=== PATIENT | female | born 1970 | race Caucasian/White ===

== ENCOUNTER 2017-12-19 18:20 | Emergency (ER) | payer MEDICAID, SELFPAY ==
[2017-12-19 18:25] VITALS: BP 120/84; PULSE 83; RESP 12; TEMP 37; O2SAT 98
--- NOTE | 2017-12-19 19:48 | DI.RAD_ITS ---
SYMPTOMS/DIAGNOSIS: FOOT PAIN RIGHT FOOT: Three views. Comparison is 12/05/16. No acute fracture or dislocation is identified. There is again seen a tiny well-corticated osseous density adjacent to the navicular. It is unchanged compared to the prior examination. The soft tissues are unremarkable. IMPRESSION: No acute fracture or dislocation.
--- NOTE | 2017-12-19 20:09 | W.ED.GENAD ---
Discharge Plan Disposition Patient Disposition: HOME Condition: Stable Discharge Details Chief Complaint: Orthopedic Clinical Impression: Acute pain of right foot Primary Care Provider: Aydin Hughes ED Provider: Josemanuel Peña Home Meds and New Rx's Prescriptions: No Action yiwjhaldfe-gotcpjdzvnhcs-anju 50-325-40 mg tablet 1 tab PO Q6H PRN (Reason: pain) Qty: 30 RF: 1 ipratropium-albuterol 3 ML solution for nebulization 3 ml UPD Q6H Qty: 30 RF: 0 divalproex 250 MG tablet,delayed release (DR/EC) 250 mg PO DAILY Qty: 90 RF: 3 omeprazole 40 MG capsule,delayed release(DR/EC) 40 mg PO DAILY Qty: 90 RF: 3 spironolactone 25 MG tablet 0.5 tab PO DAILY Qty: 45 RF: 4 carvedilol [Coreg] 3.125 MG tablet 1 tab PO BID Qty: 180 RF: 4 lisinopril 5 MG tablet 5 mg PO DAILY Qty: 90 RF: 4 norethindrone acetate 5 MG tablet 5 mg PO DAILY Qty: 90 RF: 4 albuterol sulfate [ProAir HFA] 8.5 GM HFA aerosol inhaler 2 puff Inhalation Q6H PRN Qty: 1 RF: 4 topiramate [Topamax] 100 MG tablet 1 tab PO BID Qty: 180 RF: 4 fluticasone [Flovent HFA] 120 PUFF HFA aerosol inhaler 2 puff Inhalation BID Qty: 1 RF: 11 duloxetine 30 MG capsule,delayed release(DR/EC) 30 mg PO DAILY Qty: 90 RF: 4 Discharge Instructions Instructions: Plantar Fasciitis (ED), Leg Pain (ED) Additional Instructions: Feel free to return to the emergency department for any new or worsening symptom otherwise use ituw-dho-mkxbcea pain medication as you normally would for any discomfort. You may also try lidocaine cream just look for 4% lidocaine as the active ingredient for keye-bxw-gahmotx pain cream. If not improving over the next couple weeks please follow-up with your primary care provider for reassessment. Referrals: Aydin Hughes MD [Primary Care Provider] - 2 weeks (If not improving over the next couple weeks please follow-up with your primary care provider for reassessment) Medical Decision Making Patient presenting to the emergency department for right foot pain for the past couple days. Patient states that she has been moving but denies any injury or trauma but has been on her feet more. Physical exam shows diffuse right foot pain without focal tenderness. Given severe discomfort with any palpation of the foot I do plan on performing radiological imaging to rule out acute fracture but suspicious of possible plantar fasciitis is patient is wearing house slippers and states that she has old shoes that she typically wears. Plan to give acetaminophen for pain control pending results After review of radiological imaging that shows no acute findings I feel the patient is able to be safely discharged to follow-up with her primary care provider if not improving over the next couple weeks. Patient was encouraged to continue to use acetaminophen for discomfort and to use atag-wrw-ndgohfv lidocaine cream given NSAID allergies. Again highly suspicious of possible plantar fasciitis or soft tissue pain but difficult to fully assess given diffuse nature of discomfort and with any manipulation of the foot patient states severe pain. Patient encouraged to return for new or worsening symptoms otherwise to follow-up with PCP in 2 weeks as needed. After discussion of diagnosis and plan of care patient is no further needs, questions, or concerns and states clear understanding to return to the emergency department for any worsening symptoms. HPI General Mode of arrival: wheelchair. Date/Time Provider Initiated Documentation: 12/19/17 19:33. Limitations to Documentation: no limitations. Information obtained by: patient and RN notes reviewed. History of Present Illness 47 year old F presents to the emergency department with the chief complaint of Right foot pain, described as severe, with intensity rated at 8. Quality is described as aching and sharp, and is localized to the right and lower extremity. Patient reports no radiation. Patient started experiencing this day(s) (2) and it has been constant. No relieving factors improve symptom(s), Movement worsens symptoms . Patient notes no other symptoms.. Patient did receive the following treatments prior to arrival, none Related Data Home Medications Medication Instructions Recorded Confirmed albuterol sulfate [Proair Hfa] 2 puff INHALATION Q6H PRN #1 11/08/17 12/19/17 inhaler carvedilol [Coreg] 1 tab PO BID #180 tab-cap 11/08/17 12/19/17 divalproex 250 mg PO DAILY #90 tab-cap 11/08/17 12/19/17 duloxetine 30 mg PO DAILY #90 cap 11/08/17 12/19/17 fluticasone [Flovent 110mcg] 2 puff INHALATION BID #1 inh 11/08/17 12/19/17 ipratropium-albuterol 3 ml UPD Q6H #30 vial 11/08/17 12/19/17 lisinopril 5 mg PO DAILY #90 tab-cap 11/08/17 12/19/17 norethindrone acetate 5 mg PO DAILY #90 tab 11/08/17 12/19/17 omeprazole 40 mg PO DAILY #90 tab-cap 11/08/17 12/19/17 spironolactone 0.5 tab PO DAILY #45 tab-cap 11/08/17 12/19/17 topiramate [Topamax] 1 tab PO BID #180 tab 11/08/17 12/19/17 hdqysnyiem-tlzbvkzzkunbz-ouwptwmq 1 tab PO Q6H PRN #30 tab 12/17/17 12/19/17 50 mg-325 mg-40 mg tablet Previous Rx's Medication Instructions Recorded albuterol sulfate [Proair Hfa] 2 puff INHALATION Q6H PRN #1 11/08/17 inhaler carvedilol [Coreg] 1 tab PO BID #180 tab-cap 11/08/17 divalproex 250 mg PO DAILY #90 tab-cap 11/08/17 duloxetine 30 mg PO DAILY #90 cap 11/08/17 fluticasone [Flovent 110mcg] 2 puff INHALATION BID #1 inh 11/08/17 ipratropium-albuterol 3 ml UPD Q6H #30 vial 11/08/17 lisinopril 5 mg PO DAILY #90 tab-cap 11/08/17 norethindrone acetate 5 mg PO DAILY #90 tab 11/08/17 omeprazole 40 mg PO DAILY #90 tab-cap 11/08/17 spironolactone 0.5 tab PO DAILY #45 tab-cap 11/08/17 topiramate [Topamax] 1 tab PO BID #180 tab 11/08/17 hobullgjai-fkktoqusepgeg-sttmlqee 1 tab PO Q6H PRN #30 tab 12/17/17 50 mg-325 mg-40 mg tablet Allergies Allergy/AdvReac Type Severity Reaction Status Date / Time cyclobenzaprine HCl Allergy Intermediate Skin Rash Unverified 12/17/17 15:36 [From Flexeril] ibuprofen Allergy Intermediate PT REPORTS Unverified 12/17/17 15:36 THAT IBUPROFEN GIVES HER A RASH. latex Allergy Intermediate Skin Rash Unverified 12/17/17 15:36 codeine AdvReac Intermediate Nausea Unverified 12/17/17 15:36 gabapentin AdvReac Intermediate Nausea Unverified 12/17/17 15:36 naproxen AdvReac Intermediate Rash, Unverified 12/17/17 15:36 nausea & vomiting tramadol AdvReac Intermediate Psychosis, Unverified 12/17/17 15:36 pt stated I flip out varenicline tartrate AdvReac Intermediate HALLUCINATI Unverified 12/17/17 15:36 [From Chantix] ONS pregabalin [From Lyrica] AdvReac Dizziness/Lightheaded, Unverified 12/17/17 15:36 weakness, lethargy General Stated Complaint: Orthopedic JUAN MIGUEL: 4 Review of Systems Constitutional Denies body ache(s) and Denies fever(s) Cardiovascular Denies chest pain and Denies dyspnea Respiratory Denies dyspnea Musculoskeletal Reports as per HPI, Denies deformity, Reports arthralgias, Denies numbness, Denies stiffness and Denies tingling Integumentary/Breasts Denies rash Neurologic Denies numbness and Denies tingling PFSH Family History Mother Diabetes Essential hypertension Heart disease Myocardial infarction Father No problems noted. Brother Essential hypertension Myocardial infarction Sister No problems noted. Grandmother Essential hypertension Medical History Chronic abdominal pain Chronic interstitial cystitis GERD (gastroesophageal reflux disease) PTSD Shoulder pain Vitamin B12 deficiency Social History household members: other details: 2 current occupational status: disabled Smoking/Tobacco Use Status: Current every day tobacco type: cigarettes alcohol intake: never substance use type: does not use Surgical History Cholecystectomy (04/06/16) Cystoscopy Vaginal hysterectomy (~2005) Exam Const General: cooperative and no acute distress Orientation: alert, awake and oriented x3 Resp Effort & Inspection: normal respiratory effort, able to speak in complete sentences and normal respiratory pattern Cardio Rate: regular rate Rhythm: regular rhythm Extrem Right lower extremity: full ROM, normal capillary refill, lower leg Details: normal to inspection, ankle Details: normal to inspection and foot Details: tenderness (Diffuse with difficult to local), toes with normal ROM, vascular exam Details: dorsalis pedis pulse present, posterior tibial pulse present and normal capillary refill, tendon exam Details: active flexion normal and active extension normal and motor-sensory exam Details: two point discrimination normal and light-touch normal; no unusual warmth, edema noted, no abrasion, no laceration and no ecchymosis; no cyanosis, no edema and joint enlargement noted Course Vital Signs Temperature 37 C 12/19/17 18:25 Pulse 83 12/19/17 18:25 Respiratory Rate 12 12/19/17 18:25 Blood Pressure 120/84 12/19/17 18:25 Pulse Oximetry 98 12/19/17 18:25 Temperature 37 C 12/19/17 18:25 Temperature Source Temporal Artery Scan 12/19/17 18:25 Pulse 83 12/19/17 18:25 Respiratory Rate 12 12/19/17 18:25 Respiratory Effort 12/19/17 20:03 Blood Pressure 120/84 12/19/17 18:25 Pulse Oximetry 98 12/19/17 18:25 Oxygen Delivery Method Room Air 12/19/17 18:25 Oxygen Flow Rate 0 12/19/17 18:25 Pain Level 8 12/19/17 18:25
--- NOTE | 2017-12-19 20:12 | DI.VRAD_ITS ---
EXAM: XR Right Foot Complete, 3 or More Views CLINICAL HISTORY: 47 years old, female; Pain; Foot; Right; Patient HX: Right foot pain, no known injury. Patient states she previously broke the right foot 3 years ago. TECHNIQUE: Frontal, lateral and oblique views of the right foot. COMPARISON: CR RIGHT FOOT COMPLETE 12/05/2016 11:23 AM FINDINGS: Bones/joints: Small well-corticated osseous fragment adjacent to the navicular bone, likely chronic. No acute fracture. No dislocation. Soft tissues: Unremarkable. No radiopaque foreign body. IMPRESSION: No acute fractures or dislocations. Dictated and Authenticated by: Angel Knight MD. Ordering:JENI DUPONT MD
[2017-12-19] MEDS: Acetaminophen 500 MG TAB 1000 MG PO (20:17)
--- NOTE | 2017-12-19 20:19 | ED.GENADUL_ITS ---
Discharge Plan Disposition Patient Disposition: HOME Condition: Stable Discharge Details Chief Complaint: Orthopedic Clinical Impression: Acute pain of right foot Primary Care Provider: Aydin Hughes ED Provider: Josemanuel Peña Home Meds and New Rx's Prescriptions: No Action whcvnnpkwd-zflmxtbjssxvb-kzia 50-325-40 mg tablet 1 tab PO Q6H PRN (Reason: pain) Qty: 30 RF: 1 ipratropium-albuterol 3 ML solution for nebulization 3 ml UPD Q6H Qty: 30 RF: 0 divalproex 250 MG tablet,delayed release (DR/EC) 250 mg PO DAILY Qty: 90 RF: 3 omeprazole 40 MG capsule,delayed release(DR/EC) 40 mg PO DAILY Qty: 90 RF: 3 spironolactone 25 MG tablet 0.5 tab PO DAILY Qty: 45 RF: 4 carvedilol [Coreg] 3.125 MG tablet 1 tab PO BID Qty: 180 RF: 4 lisinopril 5 MG tablet 5 mg PO DAILY Qty: 90 RF: 4 norethindrone acetate 5 MG tablet 5 mg PO DAILY Qty: 90 RF: 4 albuterol sulfate [ProAir HFA] 8.5 GM HFA aerosol inhaler 2 puff Inhalation Q6H PRN Qty: 1 RF: 4 topiramate [Topamax] 100 MG tablet 1 tab PO BID Qty: 180 RF: 4 fluticasone [Flovent HFA] 120 PUFF HFA aerosol inhaler 2 puff Inhalation BID Qty: 1 RF: 11 duloxetine 30 MG capsule,delayed release(DR/EC) 30 mg PO DAILY Qty: 90 RF: 4 Discharge Instructions Instructions: Plantar Fasciitis (ED), Leg Pain (ED) Additional Instructions: Feel free to return to the emergency department for any new or worsening symptom otherwise use cmbn-sxu-bqjybqg pain medication as you normally would for any discomfort. You may also try lidocaine cream just look for 4% lidocaine as the active ingredient for ouhj-gvg-zrgytun pain cream. If not improving over the next couple weeks please follow-up with your primary care provider for reassessment. Referrals: Aydin Hughes MD [Primary Care Provider] - 2 weeks (If not improving over the next couple weeks please follow-up with your primary care provider for reassessment) Medical Decision Making Patient presenting to the emergency department for right foot pain for the past couple days. Patient states that she has been moving but denies any injury or trauma but has been on her feet more. Physical exam shows diffuse right foot pain without focal tenderness. Given severe discomfort with any palpation of the foot I do plan on performing radiological imaging to rule out acute fracture but suspicious of possible plantar fasciitis is patient is wearing house slippers and states that she has old shoes that she typically wears. Plan to give acetaminophen for pain control pending results After review of radiological imaging that shows no acute findings I feel the patient is able to be safely discharged to follow-up with her primary care provider if not improving over the next couple weeks. Patient was encouraged to continue to use acetaminophen for discomfort and to use jucc-xka-gnjzfjk lidocaine cream given NSAID allergies. Again highly suspicious of possible plantar fasciitis or soft tissue pain but difficult to fully assess given diffuse nature of discomfort and with any manipulation of the foot patient states severe pain. Patient encouraged to return for new or worsening symptoms otherwise to follow-up with PCP in 2 weeks as needed. After discussion of diagnosis and plan of care patient is no further needs, questions, or concerns and states clear understanding to return to the emergency department for any worsening symptoms. HPI General Mode of arrival: wheelchair . Date/Time Provider Initiated Documentation: 12/19/17 19:33 . Limitations to Documentation: no limitations . Information obtained by: patient and RN notes reviewed . History of Present Illness 47 year old F presents to the emergency department with the chief complaint of Right foot pain, described as severe, with intensity rated at 8. Quality is described as aching and sharp, and is localized to the right and lower extremity. Patient reports no radiation. Patient started experiencing this day(s) (2) and it has been constant. No relieving factors improve symptom(s) , Movement worsens symptoms . Patient notes no other symptoms.. Patient did receive the following treatments prior to arrival, none Related Data Home Medications Medication Instructions Recorded Confirmed albuterol sulfate [Proair Hfa] 2 puff INHALATION Q6H PRN #1 11/08/17 12/19/17 inhaler carvedilol [Coreg] 1 tab PO BID #180 tab-cap 11/08/17 12/19/17 divalproex 250 mg PO DAILY #90 tab-cap 11/08/17 12/19/17 duloxetine 30 mg PO DAILY #90 cap 11/08/17 12/19/17 fluticasone [Flovent 110mcg] 2 puff INHALATION BID #1 inh 11/08/17 12/19/17 ipratropium-albuterol 3 ml UPD Q6H #30 vial 11/08/17 12/19/17 lisinopril 5 mg PO DAILY #90 tab-cap 11/08/17 12/19/17 norethindrone acetate 5 mg PO DAILY #90 tab 11/08/17 12/19/17 omeprazole 40 mg PO DAILY #90 tab-cap 11/08/17 12/19/17 spironolactone 0.5 tab PO DAILY #45 tab-cap 11/08/17 12/19/17 topiramate [Topamax] 1 tab PO BID #180 tab 11/08/17 12/19/17 jwujiavgcp-komyjsfojqgaw-cwtmnhko 1 tab PO Q6H PRN #30 tab 12/17/17 12/19/17 50 mg-325 mg-40 mg tablet Previous Rx's Medication Instructions Recorded albuterol sulfate [Proair Hfa] 2 puff INHALATION Q6H PRN #1 11/08/17 inhaler carvedilol [Coreg] 1 tab PO BID #180 tab-cap 11/08/17 divalproex 250 mg PO DAILY #90 tab-cap 11/08/17 duloxetine 30 mg PO DAILY #90 cap 11/08/17 fluticasone [Flovent 110mcg] 2 puff INHALATION BID #1 inh 11/08/17 ipratropium-albuterol 3 ml UPD Q6H #30 vial 11/08/17 lisinopril 5 mg PO DAILY #90 tab-cap 11/08/17 norethindrone acetate 5 mg PO DAILY #90 tab 11/08/17 omeprazole 40 mg PO DAILY #90 tab-cap 11/08/17 spironolactone 0.5 tab PO DAILY #45 tab-cap 11/08/17 topiramate [Topamax] 1 tab PO BID #180 tab 11/08/17 btaywqnnww-lltiecpcvzjrr-qchigakm 1 tab PO Q6H PRN #30 tab 12/17/17 50 mg-325 mg-40 mg tablet Allergies Allergy/AdvReac Type Severity Reaction Status Date / Time cyclobenzaprine HCl Allergy Intermediate Skin Rash Unverified 12/17/17 15:36 [From Flexeril] ibuprofen Allergy Intermediate PT REPORTS Unverified 12/17/17 15:36 THAT IBUPROFEN GIVES HER A RASH. latex Allergy Intermediate Skin Rash Unverified 12/17/17 15:36 codeine AdvReac Intermediate Nausea Unverified 12/17/17 15:36 gabapentin AdvReac Intermediate Nausea Unverified 12/17/17 15:36 naproxen AdvReac Intermediate Rash, Unverified 12/17/17 15:36 nausea & vomiting tramadol AdvReac Intermediate Psychosis, Unverified 12/17/17 15:36 pt stated I flip out varenicline tartrate AdvReac Intermediate HALLUCINATI Unverified 12/17/17 15:36 [From Chantix] ONS pregabalin [From Lyrica] AdvReac Dizziness/Lightheaded, Unverified 12/17/17 15: 36 weakness, lethargy General Stated Complaint: Orthopedic JUAN MIGUEL: 4 Review of Systems Constitutional Denies body ache(s) and Denies fever(s) Cardiovascular Denies chest pain and Denies dyspnea Respiratory Denies dyspnea Musculoskeletal Reports as per HPI, Denies deformity, Reports arthralgias, Denies numbness, Denies stiffness and Denies tingling Integumentary/Breasts Denies rash Neurologic Denies numbness and Denies tingling PFSH Family History Mother Diabetes Essential hypertension Heart disease Myocardial infarction Father No problems noted. Brother Essential hypertension Myocardial infarction Sister No problems noted. Grandmother Essential hypertension Medical History Chronic abdominal pain Chronic interstitial cystitis GERD (gastroesophageal reflux disease) PTSD Shoulder pain Vitamin B12 deficiency Social History household members: other details: 2 current occupational status: disabled Smoking/Tobacco Use Status: Current every day tobacco type: cigarettes alcohol intake: never substance use type: does not use Surgical History Cholecystectomy (04/06/16) Cystoscopy Vaginal hysterectomy (~2005) Exam Const General: cooperative and no acute distress Orientation: alert, awake and oriented x3 Resp Effort & Inspection: normal respiratory effort, able to speak in complete sentences and normal respiratory pattern Cardio Rate: regular rate Rhythm: regular rhythm Extrem Right lower extremity: full ROM, normal capillary refill, lower leg Details: normal to inspection, ankle Details: normal to inspection and foot Details: tenderness (Diffuse with difficult to local), toes with normal ROM, vascular exam Details: dorsalis pedis pulse present, posterior tibial pulse present and normal capillary refill, tendon exam Details: active flexion normal and active extension normal and motor-sensory exam Details: two point discrimination normal and light-touch normal; no unusual warmth, edema noted, no abrasion, no laceration and no ecchymosis; no cyanosis, no edema and joint enlargement noted Course Vital Signs Temperature 37 C 12/19/17 18:25 Pulse 83 12/19/17 18:25 Respiratory Rate 12 12/19/17 18:25 Blood Pressure 120/84 12/19/17 18:25 Pulse Oximetry 98 12/19/17 18:25 Temperature 37 C 12/19/17 18:25 Temperature Source Temporal Artery Scan 12/19/17 18:25 Pulse 83 12/19/17 18:25 Respiratory Rate 12 12/19/17 18:25 Respiratory Effort 12/19/17 20:03 Blood Pressure 120/84 12/19/17 18:25 Pulse Oximetry 98 12/19/17 18:25 Oxygen Delivery Method Room Air 12/19/17 18:25 Oxygen Flow Rate 0 12/19/17 18:25 Pain Level 8 12/19/17 18:25
[2017-12-19 20:34] VITALS: BP 120/84; PULSE 83; RESP 12; TEMP 37; O2SAT 98
== END 2017-12-19 20:58 | disposition home or self-care (01) ==
PROVIDERS: Emergency Provider Nurse Practitioner Family; PCP Family Medicine
DX: M79.671 Pain in right foot (principal)
CPT/HCPCS: 99283; 73630; 99282

== ENCOUNTER 2018-01-17 16:52 | Outpatient (CLI) | payer MEDICAID, SELFPAY ==
--- NOTE | 2018-01-17 15:18 | DI.RAD_ITS ---
SYMPTOMS/DIAGNOSIS: WORSENING LT HIP PAIN, DECREASED RANGE OF MOTION LEFT HIP AND PELVIS: Two views. The left hip is well maintained. The bones are normally mineralized and intact. The sacroiliac joints and symphysis pubis are intact. The soft tissues are unremarkable. IMPRESSION: Negative left hip.
== END 2018-01-17 17:12 ==
PROVIDERS: PCP Family Medicine; Visit Provider Family Medicine
DX: M25.552 Pain in left hip (principal); M25.852 Other specified joint disorders, left hip
CPT/HCPCS: 73502

== ENCOUNTER 2018-03-25 13:03 | Emergency (ER) | payer MEDICAID, SELFPAY ==
[2018-03-25 13:18] VITALS: BP 120/90; PULSE 72; RESP 18; TEMP 36.8; O2SAT 98
--- NOTE | 2018-03-25 16:17 | DI.RAD_ITS ---
SYMPTOMS/DIAGNOSIS: S/P FALL, ? ACUTE FRACTURE LEFT HIP AND PELVIS: No acute fracture or dislocation is seen. IMPRESSION: No acute abnormality.
--- NOTE | 2018-03-25 16:23 | W.ED.GENAD ---
Discharge Plan Disposition Patient Disposition: HOME Condition: Stable Discharge Details Chief Complaint: Orthopedic Clinical Impression: Chronic left hip pain Reason For Visit: BAD HIP PAIN Primary Care Provider: Aydin Hughes ED Provider: Yamilet Lucas Home Meds and New Rx's Prescriptions: Continued nicotine 21 mg/24 hr patch 24 hour 1 patch TD DAILY Qty: 28 RF: 2 melatonin 5 mg tablet 5 mg PO HS PRN (Reason: sleep) Qty: 30 RF: 3 rdqoddniel-bncckgrhptbqm-bvzy 50-325-40 mg tablet 1 tab PO Q6H PRN (Reason: pain) Qty: 30 RF: 1 triamcinolone acetonide 0.1 % cream 1 applic TP BID Qty: 30 RF: 1 ipratropium-albuterol 3 ML solution for nebulization 3 ml UPD Q6H Qty: 30 RF: 0 divalproex 250 MG tablet,delayed release (DR/EC) 250 mg PO DAILY Qty: 90 RF: 3 omeprazole 40 MG capsule,delayed release(DR/EC) 40 mg PO DAILY Qty: 90 RF: 3 spironolactone 25 MG tablet 0.5 tab PO DAILY Qty: 45 RF: 4 carvedilol [Coreg] 3.125 MG tablet 1 tab PO BID Qty: 180 RF: 4 lisinopril 5 MG tablet 5 mg PO DAILY Qty: 90 RF: 4 ProAir HFA 8.5 GM HFA aerosol inhaler 2 puff Inhalation Q6H PRN Qty: 1 RF: 4 Flovent HFA 120 PUFF HFA aerosol inhaler 2 puff Inhalation BID Qty: 1 RF: 11 duloxetine 30 MG capsule,delayed release(DR/EC) 30 mg PO DAILY Qty: 90 RF: 4 topiramate [Topamax] 100 mg tablet 100 mg PO BID Qty: 180 RF: 4 No Action norethindrone acetate 5 mg tablet 5 mg PO DAILY Qty: 90 RF: 4 Discharge Instructions Instructions: Chronic Pain (ED) Additional Instructions: Alternate ice and heat to the affected area several times daily. Take Tylenol as needed and directed for pain. Take Robaxin as needed and directed for pain not relieved with Tylenol. Follow-up with your scheduled appointment with orthopedics next month. Return to the emergency department any worsening or new concerning symptoms. Discharge Data Discharge Date/Time-TO BE ENTERED AT DEPARTURE: 03/25/18 18:23 Discharge Physician: Yamilet Lucas Medical Decision Making 48-year-old female with a history of chronic left hip pain for the past ~ 9 months, with persistent worsening s/p L iliotibial band tenotomy for trochanteric bursitis with Dr. Navarrete in June 2017 and 1 month s/p steroid injection to L hip per pcp who presents with worsening left hip pain since fall yesterday. Saw her pcp Dr. Hughes 4 days ago for her chronic hip pain and prescribed salon pas patch. Dr. Hughes notes stated opiates not appropriate per his evaluation. No cauda equina symptoms. Has been able to ambulate but with difficulty due to pain. Left lateral hip tender to palpation and pain with range of motion. No deformity. Neurovascular intact. No focal deficits. Care management initially spoke with patient regarding her chronic left hip pain and recommendations for follow-up with orthopedics. Will place a Lidoderm patch and send for left hip x-ray. It was discussed with patient that if x-ray negative, we do not treat chronic pain in the emergency department, and that she is recommended to follow-up with her scheduled appointment with orthopedics this month. [id number] --x-ray negative. Patient is requesting to go home. She is allergic to flexeril. Will send home with 2 tabs of Robaxin. Patient is instructed to alternate ice and heat and follow-up with her scheduled appointment with orthopedics this month. Patient instructed to return here with concerns. Medical Records Medical records reviewed: Yes I reviewed the patient's medical records. Imaging Data Radiologic Study: Radiologist's impression: XR Left Hip with Pelvis when Performed, 2 or 3 Views EXAM DATE/TIME: 03/25/2018 4:58 PM CLINICAL HISTORY: 48 years old, female; Signs and symptoms; Other: S/P fall , R/O acute fracture; Prior surgery; Surgery date: 6+ months TECHNIQUE: XR Left hip with pelvis when performed, 2 or 3 views COMPARISON: CR XR hip LT complete AP pelvis 01/17/2018 3:09 PM FINDINGS: The sacroiliac joints, pubic symphysis and hip joints are intact. Bone density is normal. No fracture or avascular necrosis is identified. IMPRESSION: No fracture. HPI General Mode of arrival: wheelchair. Date/Time Provider Initiated Documentation: 01/08/19 13:39. Limitations to Documentation: no limitations. Information obtained by: patient. HPI Narrative: Patient is a 48-year-old female with a history of obesity, PTSD, GERD, alcohol use, bipolar disorder and hypertension who presents with chronic left hip pain for the past 8 months. Patient states her pain is in her left hip and extends down her left leg. She denies any leg weakness or numbness, urinary or fecal incontinence, saddle anesthesia, or abdominal pain. Patient states she has had a history of left hip surgery with Dr. Navarrete and states she has had worsening pain since then. Patient also admits to a new injury a few days ago in which she slipped and fell onto her left hip. Patient has been able to ambulate but with pain. Patient saw her PCP recently in the last week for this hip pain and was given a salon pas topical patches which she states is not helping. She states she is allergic to ibuprofen. Related Data Home Medications Medication Instructions Recorded Confirmed Flovent HFA 2 puff INHALATION BID #1 inh 11/08/17 03/20/18 ProAir HFA 2 puff INHALATION Q6H PRN #1 11/08/17 03/20/18 inhaler carvedilol [Coreg] 1 tab PO BID #180 tab-cap 11/08/17 03/20/18 divalproex 250 mg PO DAILY #90 tab-cap 11/08/17 03/20/18 duloxetine 30 mg PO DAILY #90 cap 11/08/17 03/20/18 ipratropium-albuterol 3 ml UPD Q6H #30 vial 11/08/17 03/20/18 lisinopril 5 mg PO DAILY #90 tab-cap 11/08/17 03/20/18 omeprazole 40 mg PO DAILY #90 tab-cap 11/08/17 03/20/18 spironolactone 0.5 tab PO DAILY #45 tab-cap 11/08/17 03/20/18 csnhrzbpmu-cdwldeaaxjivy-napdnrfw 1 tab PO Q6H PRN #30 tab 12/17/17 03/20/18 50 mg-325 mg-40 mg tablet triamcinolone acetonide 0.1 % 1 applic TP BID #30 gm 01/17/18 03/20/18 topical cream topiramate 100 mg tablet 100 mg PO BID #180 tab 02/18/18 03/20/18 melatonin 5 mg tablet 5 mg PO HS PRN #30 tab 03/20/18 03/20/18 nicotine 21 mg/24 hr daily 1 patch TD DAILY #28 each 03/20/18 03/20/18 transdermal patch norethindrone acetate 5 mg tablet 5 mg PO DAILY #90 tab 03/27/18 Previous Rx's Medication Instructions Recorded Flovent HFA 2 puff INHALATION BID #1 inh 11/08/17 ProAir HFA 2 puff INHALATION Q6H PRN #1 11/08/17 inhaler carvedilol [Coreg] 1 tab PO BID #180 tab-cap 11/08/17 divalproex 250 mg PO DAILY #90 tab-cap 11/08/17 duloxetine 30 mg PO DAILY #90 cap 11/08/17 ipratropium-albuterol 3 ml UPD Q6H #30 vial 11/08/17 lisinopril 5 mg PO DAILY #90 tab-cap 11/08/17 omeprazole 40 mg PO DAILY #90 tab-cap 11/08/17 spironolactone 0.5 tab PO DAILY #45 tab-cap 11/08/17 hkwpybdwla-kapipicpobxfw-rwgwgmiq 1 tab PO Q6H PRN #30 tab 12/17/17 50 mg-325 mg-40 mg tablet triamcinolone acetonide 0.1 % 1 applic TP BID #30 gm 01/17/18 topical cream topiramate 100 mg tablet 100 mg PO BID #180 tab 02/18/18 melatonin 5 mg tablet 5 mg PO HS PRN #30 tab 03/20/18 nicotine 21 mg/24 hr daily 1 patch TD DAILY #28 each 03/20/18 transdermal patch norethindrone acetate 5 mg tablet 5 mg PO DAILY #90 tab 03/27/18 Allergies Allergy/AdvReac Type Severity Reaction Status Date / Time cyclobenzaprine HCl Allergy Intermediate Skin Rash Unverified 03/20/18 14:55 [From Flexeril] ibuprofen Allergy Intermediate PT REPORTS Unverified 03/20/18 14:55 THAT IBUPROFEN GIVES HER A RASH. latex Allergy Intermediate Skin Rash Unverified 03/20/18 14:55 codeine AdvReac Intermediate Nausea Unverified 03/20/18 14:55 gabapentin AdvReac Intermediate Nausea Unverified 03/20/18 14:55 naproxen AdvReac Intermediate Rash, Unverified 03/20/18 14:55 nausea & vomiting tramadol AdvReac Intermediate Psychosis, Unverified 03/20/18 14:55 pt stated I flip out varenicline tartrate AdvReac Intermediate HALLUCINATI Unverified 03/20/18 14:55 [From Chantix] ONS pregabalin [From Lyrica] AdvReac Dizziness/Lightheaded, Unverified 03/20/18 14:55 weakness, lethargy General Stated Complaint: Orthopedic JUAN MIGUEL: 4 Review of Systems Review of Systems All systems reviewed & are unremarkable except as noted in HPI and below Constitutional Reports as per HPI, Denies chills and Denies fever(s) Eyes Denies blurry vision ENT Denies dizziness, Denies sore throat and Denies throat swelling Cardiovascular Denies chest pain and Denies dyspnea Respiratory Denies dyspnea Gastrointestinal Denies abdominal pain, Denies diarrhea and Denies vomiting Genitourinary Denies hematuria and Denies dysuria Musculoskeletal Denies back pain and Denies numbness Integumentary/Breasts Denies lesions and Denies rash Neurologic Denies dizziness and Denies numbness Allergic/Immunologic Denies throat swelling [facility] Medical History Alcohol abuse (Chronic) Anxiety (Chronic) Bipolar disorder (Chronic) Depression (Chronic) HTN (hypertension) (Chronic) Chronic abdominal pain Chronic interstitial cystitis GERD (gastroesophageal reflux disease) PTSD Shoulder pain Vitamin B12 deficiency Surgical History H/O shoulder surgery (Chronic) Cholecystectomy (04/06/16) Cystoscopy Vaginal hysterectomy (~2005) Family History Mother Diabetes Essential hypertension Heart disease Myocardial infarction Father No problems noted. Brother Essential hypertension Myocardial infarction Sister No problems noted. Grandmother Essential hypertension Social History household members: other details: 2 current occupational status: disabled Smoking/Tobacco Use Status: Current every day tobacco type: cigarettes alcohol intake: never substance use type: does not use Exam Const General: cooperative, healthy appearing and no acute distress HENMT Head: normal to inspection Mouth: oral mucosae normal Eyes General: appearance normal, both eyes and all related structures Neck Neck: normal visual inspection Resp Effort & Inspection: normal respiratory effort and able to speak in complete sentences Cardio Rate: regular rate GI Palpation: soft and nontender Back/Spine/Pelvis Thoracic/Lumbar Spine: thoracic and lumbar spine normal to inspection, No thoraco-lumbar spasm, No thoracic spinal tenderness and No lumbar spinal tenderness Skin General skin exam: no rashes or lesions noted Neuro General: alert, awake, oriented x3 and moves all extremities Motor: muscle tone normal throughout and strength 5/5 throughout Sensory Exam: no sensory deficits noted Plantar Reflexes: Equivocal: bilateral Extrem Left lower extremity: hip/thigh (Well-healed vertical incision scar left lateral hip w/o acute infection) Details: tenderness Location: of the proximal upper leg Location: laterally; no swelling, no abrasions, no lacerations, no ecchymosis, no crepitus, no deformity and no unusual warmth, knee Details: normal to inspection and normal ROM; no tenderness, ankle Details: normal to inspection; no tenderness and foot Details: vascular exam Details: dorsalis pedis pulse present and posterior tibial pulse present Psych Appearance: grossly normal Affect: normal affect Course Vital Signs Temperature 98.2 F 03/25/18 13:18 Pulse 72 03/25/18 13:18 Respiratory Rate 18 03/25/18 13:18 Blood Pressure 120/90 03/25/18 13:18 Pulse Oximetry 98 03/25/18 13:18 Temperature 98.2 F 03/25/18 13:18 Temperature Source Skin 03/25/18 13:18 Pulse 72 03/25/18 13:18 Respiratory Rate 18 03/25/18 13:18 Respiratory Effort 03/25/18 13:21 Blood Pressure 120/90 03/25/18 13:18 Blood Pressure Position Sitting 03/25/18 13:18 Pulse Oximetry 98 03/25/18 13:18 Oxygen Delivery Method Room Air 03/25/18 13:18 Oxygen Flow Rate 0 03/25/18 13:18 Pain Level 8 03/25/18 13:18
--- NOTE | 2018-03-25 17:10 | DI.VRAD_ITS ---
EXAM: XR Left Hip with Pelvis when Performed, 2 or 3 Views EXAM DATE/TIME: 03/25/2018 4:58 PM CLINICAL HISTORY: 48 years old, female; Signs and symptoms; Other: S/P fall , R/O acute fracture; Prior surgery; Surgery date: 6+ months TECHNIQUE: XR Left hip with pelvis when performed, 2 or 3 views COMPARISON: CR XR hip LT complete AP pelvis 01/17/2018 3:09 PM FINDINGS: The sacroiliac joints, pubic symphysis and hip joints are intact. Bone density is normal. No fracture or avascular necrosis is identified. IMPRESSION: No fracture. Dictated and Authenticated by: Tom Mcgrath MD. Ordering:TOMAS Woodard MD
[2018-03-25] MEDS: Lidocaine 5% Patch 1 PATCH TP (18:24)
[2018-03-25] MEDS: Methocarbamol 500 MG TAB PO (18:24)
== END 2018-03-25 18:23 | disposition home or self-care (01) ==
PROVIDERS: Emergency Provider Physician Assistant; PCP Family Medicine
DX: M25.552 Pain in left hip (principal); I10 Essential (primary) hypertension
CPT/HCPCS: 99283; 73502

== ENCOUNTER 2018-06-04 15:52 | Emergency (ER) | payer MEDICAID, SELFPAY ==
[2018-06-04] VITALS (9 sets, daily range): BP systolic 122–127; BP diastolic 70–79; PULSE 62–74; RESP 16–20; TEMP 36.6–37.1; O2SAT 94–98
[2018-06-04] MEDS: Normal Saline Flush 10 ML SYR IVP (16:25)
[2018-06-04] MEDS: Lactated Ringers 1,000 ML 1000 ML IV (16:33)
[2018-06-04] MEDS: HYDROmorphone 2 MG/ML VIAL 1 MG IVP (16:35)
[2018-06-04] MEDS: Metoclopramide 10 MG/2 ML VIAL IVP (16:38)
--- NOTE | 2018-06-04 17:19 | ED.GENADUL_ITS ---
Discharge Plan Disposition Patient Disposition: HOME Condition: Improving Discharge Details Chief Complaint: Abd Prob Clinical Impression: Abdominal pain Primary Care Provider: Aydin Hughes ED Provider: Juan Miguel Coelho Home Meds and New Rx's Prescriptions: No Action nicotine 21 mg/24 hr patch 24 hour 1 patch TD DAILY Qty: 28 RF: 2 melatonin 5 mg tablet 5 mg PO HS PRN (Reason: sleep) Qty: 30 RF: 3 prednisone 5 mg tablet 5 mg PO DAILY RF: 0 prednisolone 5 mg tablet 5 mg PO DAILY RF: 0 bcimyulcdo-wqhomrfhxfpyh-ceik 50-325-40 mg tablet 1 tab PO Q6H PRN (Reason: pain) Qty: 30 RF: 1 ipratropium-albuterol 3 ML solution for nebulization 3 ml UPD Q6H Qty: 30 RF: 0 divalproex 250 MG tablet,delayed release (DR/EC) 250 mg PO DAILY Qty: 90 RF: 3 spironolactone 25 MG tablet 0.5 tab PO DAILY Qty: 45 RF: 4 carvedilol [Coreg] 3.125 MG tablet 1 tab PO BID Qty: 180 RF: 4 lisinopril 5 MG tablet 5 mg PO DAILY Qty: 90 RF: 4 albuterol sulfate [ProAir HFA] 8.5 GM HFA aerosol inhaler 2 puff Inhalation Q6H PRN Qty: 1 RF: 4 Flovent HFA 120 PUFF HFA aerosol inhaler 2 puff Inhalation BID Qty: 1 RF: 11 duloxetine 30 MG capsule,delayed release(DR/EC) 30 mg PO DAILY Qty: 90 RF: 4 topiramate [Topamax] 100 mg tablet 100 mg PO BID Qty: 180 RF: 4 norethindrone acetate 5 mg tablet 5 mg PO DAILY Qty: 90 RF: 4 Discharge Instructions Instructions: Abdominal Pain (ED) Additional Instructions: 1. Drink plenty of fluids. Add solids as tolerated 2. Continue all medications as prescribed. Except, increase the dosing of your antacid to 40 mg twice a day 3. Acetaminophen 1000mg every 4 hours (up to 5 time a day) every 6 hours as needed for fever or pain. Return to the Emergency Department (ED) if your condition worsens, does not improve as expected, or for ANY other concerns. Specifically, return if you have new or uncontrolled pain, worsening fever, difficulty breathing, vomiting, or are unable to drink fluids. Discharge Data Discharge Date/Time-TO BE ENTERED AT DEPARTURE: 06/04/18 18:14 Medical Decision Making 48-year-old woman with a history of recurrent abdominal pain and previous history of cholecystectomy and hysterectomy presents with new onset right-sided abdominal pain. Endorses that pain she feels subjectively similar to previous gallbladder disease. She is also on chronic antacids for gastritis/duodenitis. Uncomfortable on arrival with exam significant for right upper quadrant and right flank tenderness. Limited bedside ultrasound negative for evidence of obstructive nephrolithiasis. Labs and UA negative. Clinically improved after receiving IV crystalloid, IV analgesia. Discussed normal diagnostic studies and low clinical likelihood of clinically significant intra-abdominal disease. Discharged home with a plan for her usual medications and also to double her oral antacid. Pt evaluated immediately prior to discharge with improved symptoms, normal vital signs, and tolerating PO. The patient feels appropriate for discharge home. Discussed clinical/diagnostic findings. Discharged with a clear plan for outpatient follow up. Given usual and customary return instructions prior to discharge. Medical Records Medical records reviewed: Yes I reviewed the patient's medical records. Imaging Data Radiologic Study: Imaging: Ultrasound (Limited bedside renal ultrasound) My impression: Limited renal bedside Ultrasound. Findings include no hydronephrosis, perinephric stranding, or UVJ stones appreciated.. Images obtained, reviewed, and interpreted independently by myself. Images saved on ultrasound system for review. Lab Data Lab results reviewed: Yes I reviewed the patient's lab results. Lab results narrative: Laboratory Tests Range/Units 06/04/18 06/04/18 06/04/18 16:25 16:25 17:45 WBC (4.4-10.8) k/cumm 9.61 RBC (4.00-5.20) m/cumm 5.06 Hgb (12.0-15.5) g/dL 15.8 H Hct (36.0-46.0) % 47.0 H MCV (80-95) fL 92.9 MCH (27.0-33.0) pg 31.2 MCHC (32.0-36.0) g/dL 33.6 RDW (11.7-14.6) % 14.8 H Plt Count (130-400) x1000/uL 235 MPV (8.0-11.0) fL 11.0 Immature Gran % 1.0 Neutrophils % 65.4 Lymphocytes % 23.3 Monocytes % 5.9 Eosinophils % 4.1 Basophils % 0.3 Absolute Neutrophils (1.2-6.7) k/cumm 6.28 Absolute Lymphocytes (1.2-3.4) k/cumm 2.24 Absolute Monocytes (0.11-0.7) k/cumm 0.57 Absolute Eosinophils (0.0-0.7) k/cumm 0.39 Absolute Basophils (0.0-0.2) k/cumm 0.03 Sodium (136-145) mmol/L 139 Potassium (3.5-5.1) mmol/L 3.4 L Chloride (98-107) mmol/L 107 Carbon Dioxide (21.0-32.0) mmol/L 20.2 L Anion Gap (3-11) mmol/L 11.8 H BUN (7-18) mg/dL 7 Creatinine (0.55-1.02) mg/dL 0.83 Estimated GFR/1.73 m2 (mL/min/1.73m2) >= 60.00 Glucose (70-100) mg/dL 96 Calcium (8.5-10.1) mg/dL 8.1 L Total Bilirubin (0.2-1.0) mg/dL 0.3 Conjugated Bilirubin (0.00-0.20) mg/dL 0.08 AST (15-37) U/L 14 L ALT (12-78) U/L 22 Alkaline Phosphatase (46-116) U/L 65 Total Protein (6.4-8.2) g/dL 7.1 Albumin (3.4-5.0) g/dL 3.3 L Urine Color (Yellow) Yellow Urine Clarity Clear Urine pH (5-8) 7.0 Ur Specific Marquez (1.005-1.025) 1.015 Urine Protein (Negative) mg/dL Negative Urine Ketones (Negative) mg/dL Negative Urine Blood (Negative) Trace-intact H Urine Nitrite (Negative) Negative Urine Bilirubin (Negative) Negative Urine Urobilinogen (Up TO 0.2) EU/dL 0.2 Ur Leukocyte Esterase (Negative) Negative Urine RBC (0-2) 0-2 Urine WBC (0-5) HPF Negative Ur Epithelial Cells (Negative) HPF Few Urine Crystals (Negative) HPF Negative Urine Bacteria (Negative) HPF Negative Urine Casts (Negative) LPF Negative Urine Mucus (Negative) Negative Urine Other (Negative) Negative Ur Culture Indicated? No Urine Glucose (Negative) mg/dL Negative HPI 48-year-old with history of anxiety/depression, bipolar disorder, hypertension, alcohol abuse, chronic abdominal pain, GERD and also has a history of a cholecystectomy and vaginal hysterectomy. Presents with 1 day of persistent abdominal pain localized to right abdomen. Onset was gradual last night and her pain is been persistent/worsening since. She localizes pain to the right upper quadrant and right flank. Pain subjectively similar to previous cholecystectomy. Denies fever/chills. Has been nauseated with no emesis. Denies significant change in bowel habits, melena, hematochezia. She has had no urinary symptoms. General Date/Time Provider Initiated Documentation: 06/04/18 16:12 . Related Data Home Medications Medication Instructions Recorded Confirmed Flovent HFA 2 puff INHALATION BID #1 inh 11/08/17 05/28/18 albuterol sulfate [ProAir HFA] 2 puff INHALATION Q6H PRN #1 11/08/17 05/28/18 inhaler carvedilol [Coreg] 1 tab PO BID #180 tab-cap 11/08/17 05/28/18 divalproex 250 mg PO DAILY #90 tab-cap 11/08/17 05/28/18 duloxetine 30 mg PO DAILY #90 cap 11/08/17 05/28/18 ipratropium-albuterol 3 ml UPD Q6H #30 vial 11/08/17 05/28/18 lisinopril 5 mg PO DAILY #90 tab-cap 11/08/17 05/28/18 spironolactone 0.5 tab PO DAILY #45 tab-cap 11/08/17 05/28/18 qotckvamgn-kebbwrpnronfk-thujwovm 1 tab PO Q6H PRN #30 tab 12/17/17 05/28/18 50 mg-325 mg-40 mg tablet topiramate 100 mg tablet 100 mg PO BID #180 tab 02/18/18 05/28/18 melatonin 5 mg tablet 5 mg PO HS PRN #30 tab 03/20/18 05/28/18 nicotine 21 mg/24 hr daily 1 patch TD DAILY #28 each 03/20/18 05/28/18 transdermal patch norethindrone acetate 5 mg tablet 5 mg PO DAILY #90 tab 03/27/18 05/28/18 prednisone 5 mg tablet 5 mg PO DAILY 04/03/18 05/28/18 prednisolone 5 mg tablet 5 mg PO DAILY 05/28/18 05/28/18 Previous Rx's Medication Instructions Recorded Flovent HFA 2 puff INHALATION BID #1 inh 11/08/17 albuterol sulfate [ProAir HFA] 2 puff INHALATION Q6H PRN #1 11/08/17 inhaler carvedilol [Coreg] 1 tab PO BID #180 tab-cap 11/08/17 divalproex 250 mg PO DAILY #90 tab-cap 11/08/17 duloxetine 30 mg PO DAILY #90 cap 11/08/17 ipratropium-albuterol 3 ml UPD Q6H #30 vial 11/08/17 lisinopril 5 mg PO DAILY #90 tab-cap 11/08/17 spironolactone 0.5 tab PO DAILY #45 tab-cap 11/08/17 ziyfswyecu-zyprkzarhalou-zolhwgqn 1 tab PO Q6H PRN #30 tab 12/17/17 50 mg-325 mg-40 mg tablet topiramate 100 mg tablet 100 mg PO BID #180 tab 02/18/18 melatonin 5 mg tablet 5 mg PO HS PRN #30 tab 03/20/18 nicotine 21 mg/24 hr daily 1 patch TD DAILY #28 each 03/20/18 transdermal patch norethindrone acetate 5 mg tablet 5 mg PO DAILY #90 tab 03/27/18 Allergies Allergy/AdvReac Type Severity Reaction Status Date / Time cyclobenzaprine HCl Allergy Intermediate Skin Rash Unverified 05/28/18 09:40 [From Flexeril] ibuprofen Allergy Intermediate PT REPORTS Unverified 05/28/18 09:40 THAT IBUPROFEN GIVES HER A RASH. latex Allergy Intermediate Skin Rash Unverified 05/28/18 09:40 codeine AdvReac Intermediate Nausea Unverified 05/28/18 09:40 gabapentin AdvReac Intermediate Nausea Unverified 05/28/18 09:40 naproxen AdvReac Intermediate Rash, Unverified 05/28/18 09:40 nausea & vomiting tramadol AdvReac Intermediate Psychosis, Unverified 05/28/18 09:40 pt stated I flip out varenicline tartrate AdvReac Intermediate HALLUCINATI Unverified 05/28/18 09:40 [From Chantix] ONS pregabalin [From Lyrica] AdvReac Dizziness/Lightheaded, Unverified 05/28/18 09:40 weakness, lethargy General Stated Complaint: Abd Prob JUAN MIGUEL: 3 Review of Systems Review of Systems All systems are reviewed and are unremarkable except as noted in HPI and below: CONSTITUTIONAL: no fevers/chills, no weakness or change in appetite EYES: no change in vision HEENT: no throat pain or difficulty swallowing; no neck pain CARDIOVASCULAR: no chest pain, palpitations, leg swelling, or diaphoresis RESPIRATORY: no cough, dyspnea, wheezing GASTROINTESTINAL: Right upper quadrant/right flank abdominal pain, nausea with no emesis. No melena/hematochezia GENITOURINARY: no dysuria, flank pain, MUSCULOSKELETAL: no pack pain, myalgias, arthralgias INTEGUMENTARY: no rash, no wounds NEUROLOGIC: no headache, focal weakness, difficulty with speech, numbness PSYCHIATRIC: no confusion, no anxiety HEME: no easy bruising or bleeding ALLERGIC: no urticaria PFSH Social History Smoking/Tobacco Use Status: Current every day Tobacco Type: cigarettes Alcohol Intake: former Drug use: Occasionally Substance use type: former substance user Household members: other Details: 2 What type of physical activity do you participate in: none Do you feel safe at home: Yes Do you feel safe in your relationship?: Yes Exam Narrative Exam Narrative: Nursing note and vital signs have been reviewed and noted. GENERAL: alert, active, no acute distress, well -hydrated, well-nourished HEENT: atraumatic/normocephalic, PERRLA, EOMI, conjunctiva clear, external ears/canals normal, nasal mucosa normal NECK: supple, full range of motion, no mass, normal lymphadenopathy, no thyromegaly CARDIOVASCULAR: RRR, no murmurs, nl pulses, no edema PULMONARY: nl effort, no audible wheezing or stridor, nl breath sounds with no focal deficit. no chest wall tenderness ABDOMEN: soft, moderate right upper quadrant tenderness with mild right flank tenderness, non-distended, no mass, no organomegaly EXTREMITY: normal muscle tone, all joints with FROM, no deformity or tenderness SKIN: no exanthem appreciated NEURO: gross motor exam normal, normal stance and gait PSYCH: alert and oriented, Course Vital Signs Temperature 98.8 F 06/04/18 15:56 Pulse 74 06/04/18 15:56 Respiratory Rate 20 06/04/18 15:56 Blood Pressure 127/70 06/04/18 15:56 Pulse Oximetry 98 06/04/18 15:56 Temperature 98.8 F 06/04/18 15:56 Temperature Source Skin 06/04/18 15:56 Pulse 71 06/04/18 16:32 Respiratory Rate 18 06/04/18 16:32 Respiratory Effort 06/04/18 16:04 Blood Pressure 125/74 06/04/18 16:32 Blood Pressure Mean 88 06/04/18 16:31 Pulse Oximetry 96 06/04/18 16:50 Oxygen Delivery Method Room Air 06/04/18 16:32 Oxygen Flow Rate 0 06/04/18 16:32 Pain Level 5 06/04/18 17:01
[2018-06-04 17:22] LABS: Absolute Basophil Count 0.03 k/cumm (0.0-0.2); Absolute Eosinophil Count 0.39 k/cumm (0.0-0.7); Absolute Lymphocyte Count 2.24 k/cumm (1.2-3.4); Absolute Monocyte Count 0.57 k/cumm (0.11-0.7); Absolute Neutrophil Count 6.28 k/cumm (1.2-6.7); Basophils % 0.3; Eosinophils % 4.1; HGB 15.8 g/dL (12.0-15.5); Lymphocytes % 23.3; Mean Corp. HGB Concentration 33.6 g/dL (32.0-36.0); Mean Corpuscular Hemoglobin 31.2 pg (27.0-33.0); Mean Corpuscular Volume 92.9 fL (80-95); Monocytes % 5.9; Neutrophils % 65.4; Platelet Count 235 x1000/uL (130-400); RBC 5.06 m/cumm (4.00-5.20); RBC Distribution Width 14.8 % (11.7-14.6); White Blood Cell Count 9.61 k/cumm (4.4-10.8)
[2018-06-04 17:34] LABS: ALT 22 U/L (12-78); AST 14 U/L (15-37); Albumin 3.3 g/dL (3.4-5.0); Alkaline Phosphatase 65 U/L (46-116); Anion Gap 11.8 mmol/L (3-11); BUN 7 mg/dL (7-18); Bilirubin, Direct 0.08 mg/dL (0.00-0.20); Bilirubin, Total 0.3 mg/dL (0.2-1.0); CO2 20.2 mmol/L (21.0-32.0); CREATININE 0.83 mg/dL (0.55-1.02); Calcium 8.1 mg/dL (8.5-10.1); Chloride 107 mmol/L (98-107); Glucose 96 mg/dL (70-100); Potassium 3.4 mmol/L (3.5-5.1); Sodium 139 mmol/L (136-145); Total Protein 7.1 g/dL (6.4-8.2)
[2018-06-04 17:56] LABS: Bilirubin Negative (Negative); Blood Trace-intact (Negative); Clarity Clear; Glucose Negative (Negative); Ketones Negative (Negative); Leukocyte Esterase Negative (Negative); Nitrite Negative (Negative); Specific Gravity 1.015 (1.005-1.025); Urobilinogen 0.2 EU/dL (Up TO 0.2)
[2018-06-04 18:26] LABS: Bacteria Negative HPF (Negative); C & S Indicated? No; Casts Negative LPF (Negative); Crystals Negative HPF (Negative); Epithelial Cells Few HPF (Negative); Mucus Negative (Negative); Other Cells Negative (Negative); RBC 0-2 (0-2); WBC Negative HPF (0-5)
== END 2018-06-04 18:14 | disposition home or self-care (01) ==
PROVIDERS: Emergency Provider Emergency Medicine; PCP Family Medicine
DX: R10.11 Right upper quadrant pain (principal); R10.31 Right lower quadrant pain; Z90.49 Acquired absence of other specified parts of digestive tract; I10 Essential (primary) hypertension; Z90.710 Acquired absence of both cervix and uterus
CPT/HCPCS: 36415; 80048; 80076; 96361; 96374; 96375; 99284; 81003; 81015; 85025; J2765

== ENCOUNTER 2018-06-10 11:45 | Outpatient (CLI) | payer MEDICAID, SELFPAY ==
[2018-06-10] MEDS: Omnipaque 350 MG/ML 100 ML BTL IJ (13:34)
--- NOTE | 2018-06-10 13:39 | DI.CT_ITS ---
SYMPTOMS/DIAGNOSIS: RIGHT LOWER QUADRANT PAIN, ? APPENDICITIS, R10.[address]: CT examination of the abdomen and pelvis was performed with a bolus infusion of 100 cc of Omnipaque 350 and ingestion of dilute barium. Images obtained through the lung bases are unremarkable. Liver, spleen and pancreas appear normal. No biliary dilatation seen. Gallbladder has been surgically removed. No significant abdominal wall hernia seen. No evidence of abdominal or pelvic adenopathy. Appendix is normal. No evidence of bowel obstruction or diverticulitis. Abdominal aorta is of normal diameter and no major vascular abnormality is seen. Adrenals appear normal bilaterally. There are two small nonobstructing calculi of the lower pole of the left kidney measuring less than 5 mm in diameter. No additional urinary tract calcifications seen. No evidence of hydronephrosis. Urinary bladder is essentially empty. CONCLUSION: Nonobstructing left renal calculi. No evidence of acute process.
== END 2018-06-10 12:05 ==
PROVIDERS: PCP Family Medicine; Visit Provider Family Medicine
DX: R10.31 Right lower quadrant pain (principal); N20.0 Calculus of kidney
CPT/HCPCS: 74177; J3490

== ENCOUNTER 2018-07-21 01:02 | Outpatient (CLI) | payer MEDICAID, SELFPAY ==
--- NOTE | 2018-07-21 15:45 | DI.MRI_ITS ---
SYMPTOMS/DIAGNOSIS: LEFT LATERAL HIP PAIN, SYMPTOMS X 1 YEAR, MULTIPLE FALLS LEFT HIP MRI: MRI examination of the hip was performed according to the usual protocol. No pelvic mass or adenopathy seen. The bones of the hips and pelvis are unremarkable except for a previously noted 10 mm in diameter cyst of the anterior superior acetabulum on the left. No soft tissue signal abnormality seen in the region of the hip. CONCLUSION: Small left subchondral acetabular cyst, grossly unchanged in appearance in comparison with examination of 04/19/2017. No other significant findings.
== END 2018-07-21 01:22 ==
PROVIDERS: PCP Family Medicine; Visit Provider Orthopaedic Surgery
DX: M25.552 Pain in left hip (principal); M85.48 Solitary bone cyst, other site
CPT/HCPCS: 73721

== ENCOUNTER 2018-08-17 16:57 | Emergency (ER) | payer MEDICAID, SELFPAY ==
[2018-08-17 17:21] VITALS: BP 136/94; PULSE 67; RESP 16; TEMP 36.5; O2SAT 97
--- NOTE | 2018-08-17 17:43 | ED.GENADUL_ITS ---
Discharge Plan Disposition Patient Disposition: HOME Condition: Improving Discharge Details Chief Complaint: Nausea/Vomit/Diar Clinical Impression: Nausea and vomiting Primary Care Provider: Aydin Hughes ED Provider: Yamilet Lucas Home Meds and New Rx's Prescriptions: New ondansetron HCl [Zofran] 4 mg tablet 4 mg PO TID PRN (Reason: nausea and vomiting) Qty: 6 RF: 0 famotidine [Pepcid] 20 mg tablet 20 mg PO DAILY Qty: 7 RF: 0 Continued nicotine 21 mg/24 hr patch 24 hour 1 patch TD DAILY Qty: 28 RF: 2 hovnpagtlk-agyzyyybmqlfh-qbbc 50-325-40 mg tablet 1 tab PO Q6H PRN (Reason: pain) Qty: 30 RF: 1 tramadol 50 mg tablet 50 mg PO Q6H PRNRF: 0 ipratropium-albuterol 3 ML solution for nebulization 3 ml UPD Q6H Qty: 30 RF: 0 divalproex 250 MG tablet,delayed release (DR/EC) 250 mg PO DAILY Qty: 90 RF: 3 lisinopril 5 MG tablet 5 mg PO DAILY Qty: 90 RF: 4 albuterol sulfate [ProAir HFA] 8.5 GM HFA aerosol inhaler 2 puff Inhalation Q6H PRN Qty: 1 RF: 4 Flovent HFA 120 PUFF HFA aerosol inhaler 2 puff Inhalation BID Qty: 1 RF: 11 duloxetine 30 MG capsule,delayed release(DR/EC) 30 mg PO DAILY Qty: 90 RF: 4 topiramate [Topamax] 100 mg tablet 100 mg PO BID Qty: 180 RF: 4 norethindrone acetate 5 mg tablet 5 mg PO DAILY Qty: 90 RF: 4 dicyclomine 10 mg capsule 10 mg PO QID PRN (Reason: abdominal pain) Qty: 30 RF: 1 omeprazole 20 mg capsule,delayed release(DR/EC) 20 mg PO DAILY Qty: 90 RF: 3 carvedilol [Coreg] 3.125 mg tablet 3.125 mg PO BID Qty: 180 RF: 4 diazepam [Valium] 10 mg tablet 10 mg PO ONCE PRNRF: 0 spironolactone 25 mg tablet 12.5 mg PO DAILY Qty: 45 RF: 4 melatonin 5 mg tablet 5 mg PO HS PRN (Reason: sleep) Qty: 30 RF: 3 Discharge Instructions Instructions: Acute Nausea and Vomiting (ED) Additional Instructions: Take the Zofran as needed directed for nausea and vomiting. Take the Pepcid as needed directed for pain and stomach upset. Follow-up with your primary care doctor this week for reevaluation. Return to the emergency department with any worsening or new concerning symptoms . Discharge Data Discharge Physician: Yamilet Lucas Medical Decision Making 48-year-old female with history of anxiety, depression, GERD, PTSD who presents with vomiting multiple times today. Denies fever, diarrhea, urinary symptoms, abdominal pain, chest pain or shortness of breath. Vitals within normal limits. Afebrile. Patient appears nontoxic. Abdomen soft and nontender. Appears consistent likely with gastroenteritis, versus food poisoning. Do not see an indication for imaging at this time. Will place an IV, bolus IV fluids, labs and give a dose of Zofran and reassess. 1940 --patient feels much better and is requesting to go home. Labs reviewed and unremarkable. White blood cell count 11. 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 She denies any pain. Will send home with 3 tabs of Zofran as well as prescription for Zofran and Pepcid. She is instructed to follow-up with a primary care doctor for reevaluation and to return here if worse. Medical Records Medical records reviewed: Yes I reviewed the patient's medical records. Lab Data Lab results reviewed: Yes I reviewed the patient's lab results. Laboratory Tests Range/Units 08/17/18 08/17/18 17:45 18:55 WBC (4.4-10.8) k/cumm 11.35 H RBC (4.00-5.20) m/cumm 5.35 H Hgb (12.0-15.5) g/dL 16.6 H Hct (36.0-46.0) % 50.0 H MCV (80-95) fL 93.5 MCH (27.0-33.0) pg 31.0 MCHC (32.0-36.0) g/dL 33.2 RDW (11.7-14.6) % 15.2 H Plt Count (130-400) x1000/uL 248 MPV (8.0-11.0) fL 11.0 Immature Gran % 0.5 Neutrophils % 74.0 Lymphocytes % 17.1 Monocytes % 6.8 Eosinophils % 1.3 Basophils % 0.3 Absolute Neutrophils (1.2-6.7) k/cumm 8.40 H Absolute Lymphocytes (1.2-3.4) k/cumm 1.94 Absolute Monocytes (0.11-0.7) k/cumm 0.77 H Absolute Eosinophils (0.0-0.7) k/cumm 0.15 Absolute Basophils (0.0-0.2) k/cumm 0.03 Sodium (136-145) mmol/L 142 Potassium (3.5-5.1) mmol/L 3.6 Chloride (98-107) mmol/L 108 H Carbon Dioxide (21.0-32.0) mmol/L 24.3 Anion Gap (3-11) mmol/L 9.7 BUN (7-18) mg/dL 7 Creatinine (0.55-1.02) mg/dL 0.78 Estimated GFR/1.73 m2 (mL/min/1.73m2) >= 60.00 Glucose (70-100) mg/dL 86 Calcium (8.5-10.1) mg/dL 7.9 L Magnesium (1.8-2.4) mg/dL 1.9 Total Bilirubin (0.2-1.0) mg/dL 0.2 AST (15-37) U/L 16 ALT (12-78) U/L 35 Alkaline Phosphatase (46-116) U/L 67 Troponin I (0.00-0.06) ng/mL < 0.02 Total Protein (6.4-8.2) g/dL 6.5 Albumin (3.4-5.0) g/dL 3.1 L Lipase (73-393) U/L 106 HPI General Mode of arrival: ambulatory . Date/Time Provider Initiated Documentation: 08/17/18 17:14 . Limitations to Documentation: no limitations . Information obtained by: patient . HPI Narrative: Patient is a 48-year-old female who presents the ED with complaint of vomiting since this morning. Patient states she has vomited 20+ times which is mainly been food or bile. She states she ate grinders and Flagyl yesterday afternoon and thinks this is the cause. She denies any fever, chest pain, shortness of breath, abdominal pain, diarrhea, urinary symptoms. She denies any recent antibiotics or recent travel. She denies any sick contacts. Related Data Home Medications Medication Instructions Recorded Confirmed Flovent HFA 2 puff INHALATION BID #1 inh 11/08/17 08/17/18 albuterol sulfate [ProAir HFA] 2 puff INHALATION Q6H PRN #1 11/08/17 08/17/18 inhaler divalproex 250 mg PO DAILY #90 tab-cap 11/08/17 08/17/18 duloxetine 30 mg PO DAILY #90 cap 11/08/17 08/17/18 ipratropium-albuterol 3 ml UPD Q6H #30 vial 11/08/17 08/17/18 lisinopril 5 mg PO DAILY #90 tab-cap 11/08/17 08/17/18 fhrtxkuvgi-fjneunkvigzbu-cohdjhni 1 tab PO Q6H PRN #30 tab 12/17/17 08/17/18 50 mg-325 mg-40 mg tablet topiramate 100 mg tablet 100 mg PO BID #180 tab 02/18/18 08/17/18 nicotine 21 mg/24 hr daily 1 patch TD DAILY #28 each 03/20/18 08/17/18 transdermal patch norethindrone acetate 5 mg tablet 5 mg PO DAILY #90 tab 03/27/18 08/17/18 dicyclomine 10 mg capsule 10 mg PO QID PRN #30 cap 06/12/18 08/17/18 omeprazole 20 mg capsule,delayed 20 mg PO DAILY #90 cap 07/04/18 08/17/18 release carvedilol 3.125 mg tablet 3.125 mg PO BID #180 tab-cap 07/14/18 08/17/18 diazepam 10 mg tablet 10 mg PO ONCE PRN tab 07/16/18 08/17/18 tramadol 50 mg tablet 50 mg PO Q6H PRN 07/24/18 08/17/18 spironolactone 25 mg tablet 12.5 mg PO DAILY #45 tab-cap 08/05/18 08/17/18 melatonin 5 mg tablet 5 mg PO HS PRN #30 tab 08/12/18 08/17/18 famotidine [Pepcid] 20 mg PO DAILY #7 tab 08/17/18 ondansetron HCl [Zofran] 4 mg PO TID PRN #6 tab 08/17/18 Previous Rx's Medication Instructions Recorded Flovent HFA 2 puff INHALATION BID #1 inh 11/08/17 albuterol sulfate [ProAir HFA] 2 puff INHALATION Q6H PRN #1 11/08/17 inhaler divalproex 250 mg PO DAILY #90 tab-cap 11/08/17 duloxetine 30 mg PO DAILY #90 cap 11/08/17 ipratropium-albuterol 3 ml UPD Q6H #30 vial 11/08/17 lisinopril 5 mg PO DAILY #90 tab-cap 11/08/17 doibphqqsr-pxmhvnvgfnfdo-lsytfqvz 1 tab PO Q6H PRN #30 tab 12/17/17 50 mg-325 mg-40 mg tablet topiramate 100 mg tablet 100 mg PO BID #180 tab 02/18/18 nicotine 21 mg/24 hr daily 1 patch TD DAILY #28 each 03/20/18 transdermal patch norethindrone acetate 5 mg tablet 5 mg PO DAILY #90 tab 03/27/18 dicyclomine 10 mg capsule 10 mg PO QID PRN #30 cap 06/12/18 omeprazole 20 mg capsule,delayed 20 mg PO DAILY #90 cap 07/04/18 release carvedilol 3.125 mg tablet 3.125 mg PO BID #180 tab-cap 07/14/18 spironolactone 25 mg tablet 12.5 mg PO DAILY #45 tab-cap 08/05/18 melatonin 5 mg tablet 5 mg PO HS PRN #30 tab 08/12/18 famotidine [Pepcid] 20 mg PO DAILY #7 tab 08/17/18 ondansetron HCl [Zofran] 4 mg PO TID PRN #6 tab 08/17/18 Allergies Allergy/AdvReac Type Severity Reaction Status Date / Time cyclobenzaprine HCl Allergy Intermediate Skin Rash Unverified 08/17/18 17:25 [From Flexeril] ibuprofen Allergy Intermediate PT REPORTS Unverified 08/17/18 17:25 THAT IBUPROFEN GIVES HER A RASH. latex Allergy Intermediate Skin Rash Unverified 08/17/18 17:25 codeine AdvReac Intermediate Nausea Unverified 08/17/18 17:25 gabapentin AdvReac Intermediate Nausea Unverified 08/17/18 17:25 naproxen AdvReac Intermediate Rash, Unverified 08/17/18 17:25 nausea & vomiting tramadol AdvReac Intermediate Psychosis, Unverified 08/17/18 17:25 pt stated I flip out varenicline tartrate AdvReac Intermediate HALLUCINATI Unverified 08/17/18 17:25 [From Chantix] ONS pregabalin [From Lyrica] AdvReac Dizziness/Lightheaded, Unverified 08/17/18 17:25 weakness, lethargy General Stated Complaint: Nausea/Vomit/Diar JUAN MIGUEL: 3 Review of Systems Review of Systems All systems reviewed & are unremarkable except as noted in HPI and below Constitutional Reports as per HPI, Denies chills and Denies fever(s) Eyes Denies blurry vision ENT Denies dizziness, Denies sore throat and Denies throat swelling Cardiovascular Denies chest pain and Denies dyspnea Respiratory Denies cough and Denies dyspnea Gastrointestinal Denies abdominal pain, Denies diarrhea and Reports vomiting Genitourinary Denies hematuria and Denies dysuria Musculoskeletal Denies back pain and Denies numbness Integumentary/Breasts Denies lesions and Denies rash Neurologic Denies dizziness, Denies focal weakness and Denies numbness Allergic/Immunologic Denies throat swelling [facility] Social History Smoking/Tobacco Use Status: Current every day Tobacco Type: cigarettes Alcohol Intake: former Drug use: Occasionally Substance use type: does not use Household members: other Details: 2 What type of physical activity do you participate in: none Do you feel safe at home: Yes Do you feel safe in your relationship?: Yes Exam Const General: cooperative, healthy appearing and no acute distress HENMT Head: normal to inspection Face and sinus: normal facial exam Eyes General: appearance normal, both eyes and all related structures EOM: EOM intact bilaterally Neck Neck: normal visual inspection and No submandibular swelling Lymphatic: no lymphadenopathy noted Chest Chest: normal inspection of the chest and no tenderness Resp Effort & Inspection: normal respiratory effort and able to speak in complete sentences Auscultation: clear to auscultation bilaterally Cardio Rate: regular rate Rhythm: regular rhythm GI Inspection: normal to inspection Palpation: soft, not firm, not rigid and nontender Auscultation: normal bowel sounds Skin General skin exam: no rashes or lesions noted Neuro General: alert, awake and oriented x3 Cognition: normal cognition Speech: speech normal Motor: muscle tone normal throughout Sensory Exam: no sensory deficits noted Extrem General: normal to inspection, full ROM and no edema Psych Appearance: grossly normal Mental Status: mental status grossly normal Speech and Movement: speech and movement normal Affect: normal affect Course Vital Signs Temperature 97.7 F 08/17/18 17:21 Pulse 67 08/17/18 17:21 Respiratory Rate 16 08/17/18 17:21 Blood Pressure 136/94 H 08/17/18 17:21 Pulse Oximetry 97 08/17/18 17:21 Temperature 97.7 F 08/17/18 17:21 Temperature Source Skin 08/17/18 17:21 Pulse 67 08/17/18 17:21 Respiratory Rate 16 08/17/18 17:21 Respiratory Effort Non-Labored 08/17/18 17:21 Blood Pressure 136/94 H 08/17/18 17:21 Blood Pressure Position Supine 08/17/18 17:21 Pulse Oximetry 97 08/17/18 17:21 Pain Level 8 08/17/18 17:21
[2018-08-17] MEDS: Normal Saline 1,000 ML 1000 ML IV (17:50)
[2018-08-17] MEDS: Ondansetron 4 MG/2 ML VIAL IVP (18:05)
[2018-08-17 18:25] LABS: Abs Immature Grans 0.06 k/cumm (0.0-0.09); Absolute Basophil Count 0.03 k/cumm (0.0-0.2); Absolute Eosinophil Count 0.15 k/cumm (0.0-0.7); Absolute Lymphocyte Count 1.94 k/cumm (1.2-3.4); Absolute Monocyte Count 0.77 k/cumm (0.11-0.7); Basophils % 0.3; Eosinophils % 1.3; HGB 16.6 g/dL (12.0-15.5); Immature Grans % 0.5; Lymphocytes % 17.1; Mean Corp. HGB Concentration 33.2 g/dL (32.0-36.0); Mean Corpuscular Volume 93.5 fL (80-95); Monocytes % 6.8; Platelet Count 248 x1000/uL (130-400); RBC 5.35 m/cumm (4.00-5.20); RBC Distribution Width 15.2 % (11.7-14.6); White Blood Cell Count 11.35 k/cumm (4.4-10.8)
[2018-08-17 19:05] VITALS: BP 135/78; PULSE 77; RESP 16; TEMP 36.5; O2SAT 98
--- NOTE | 2018-08-17 19:09 | NUR.NOTE ---
Nursing Note: Pt reports nausea resolved after receiving medication, pt given po fluid trial.
[2018-08-17 19:22] LABS: ALT 35 U/L (12-78); AST 16 U/L (15-37); Albumin 3.1 g/dL (3.4-5.0); Alkaline Phosphatase 67 U/L (46-116); Anion Gap 9.7 mmol/L (3-11); BUN 7 mg/dL (7-18); Bilirubin, Total 0.2 mg/dL (0.2-1.0); CO2 24.3 mmol/L (21.0-32.0); CREATININE 0.78 mg/dL (0.55-1.02); Calcium 7.9 mg/dL (8.5-10.1); Chloride 108 mmol/L (98-107); Glucose 86 mg/dL (70-100); Lipase 106 U/L (73-393); Magnesium 1.9 mg/dL (1.8-2.4); Potassium 3.6 mmol/L (3.5-5.1); Sodium 142 mmol/L (136-145); Total Protein 6.5 g/dL (6.4-8.2)
[2018-08-17 19:26] LABS: Troponin I < 0.02 ng/mL (0.00-0.06)
[2018-08-17] MEDS: Ondansetron O.D.T. 4 MG TABEF 12 MG PO (19:56)
[2018-08-17 20:00] VITALS: BP 135/78; PULSE 77; RESP 16; O2SAT 98
== END 2018-08-17 20:00 | disposition home or self-care (01) ==
PROVIDERS: Emergency Provider Physician Assistant; PCP Family Medicine
DX: R11.2 Nausea with vomiting, unspecified (principal)
CPT/HCPCS: 36415; 80053; 83690; 96361; 96374; 99284; 83735; 84484; 85025

== ENCOUNTER 2018-09-29 14:37 | Emergency (ER) | payer MEDICAID, SELFPAY ==
[2018-09-29 14:40] VITALS: BP 125/79; PULSE 70; RESP 14; TEMP 36.6; O2SAT 95
[2018-09-29] MEDS: Metoclopramide 10 MG/2 ML VIAL IVP (15:32)
[2018-09-29] MEDS: diphenhydrAMINE 50 MG/ML VIAL 25 MG IVP (15:33)
[2018-09-29] MEDS: Acetaminophen 500 MG TAB 1000 MG PO (15:36)
[2018-09-29] MEDS: methylPREDNISolone SUCC 125 MG VIAL IVP (15:37)
--- NOTE | 2018-09-29 16:01 | NUR.NOTE ---
pt resting in bed ivf infuisng medicated as per mdo Nursing Note:
--- NOTE | 2018-09-29 16:11 | ED.GENADUL_ITS ---
Discharge Plan Disposition Patient Disposition: HOME Condition: Good Discharge Details Chief Complaint: Headache Clinical Impression: Migraine headache Primary Care Provider: Lalitha Drummond ED Provider: Eduardo George Home Meds and New Rx's Prescriptions: No Action ipratropium-albuterol 3 ML solution for nebulization 3 ml UPD Q6H Qty: 30 RF: 0 divalproex 250 MG tablet,delayed release (DR/EC) 250 mg PO DAILY Qty: 90 RF: 3 lisinopril 5 MG tablet 5 mg PO DAILY Qty: 90 RF: 4 albuterol sulfate [ProAir HFA] 8.5 GM HFA aerosol inhaler 2 puff Inhalation Q6H PRN Qty: 1 RF: 4 Flovent HFA 120 PUFF HFA aerosol inhaler 2 puff Inhalation BID Qty: 1 RF: 11 topiramate [Topamax] 100 mg tablet 100 mg PO BID Qty: 180 RF: 4 norethindrone acetate 5 mg tablet 5 mg PO DAILY Qty: 90 RF: 4 dicyclomine 10 mg capsule 10 mg PO QID PRN (Reason: abdominal pain) Qty: 30 RF: 1 omeprazole 20 mg capsule,delayed release(DR/EC) 20 mg PO DAILY Qty: 90 RF: 3 carvedilol [Coreg] 3.125 mg tablet 3.125 mg PO BID Qty: 180 RF: 4 spironolactone 25 mg tablet 12.5 mg PO DAILY Qty: 45 RF: 4 melatonin 5 mg tablet 5 mg PO HS PRN (Reason: sleep) Qty: 30 RF: 3 duloxetine 30 mg capsule,delayed release(DR/EC) 30 mg PO DAILY Qty: 90 RF: 0 famotidine [Pepcid] 20 mg tablet 20 mg PO DAILY Qty: 7 RF: 0 Discharge Instructions Instructions: Acute Headache (ED) Additional Instructions: if you notice any worsening of your symptoms, or any new symptoms such as vomiting, diarrhea, fever, chills, shortness of breath, chest pain, numbness, weakness, or fainting , please return immediately to the emergency department for reevaluation. Please follow up with your primary care provider as soon as possible for reassessment and reevaluation. As always, it was a pleasure participating in your medical care today. Referrals: Bhanu,Lalitha, [employer] [Primary Care Provider] - Discharge Data Discharge Date/Time-TO BE ENTERED AT DEPARTURE: 09/29/18 16:28 Medical Decision Making This is a pleasant 48-year-old female who presents for 4 days of gradual headache. No concerning red flags and clinical history or exam for meningitis, intercranial bleed, or trauma or infection. Signs and symptoms appear clinically consistent with migraine. No clinical indication for emergent imaging or LP. Migraine cocktail was given with Reglan, Benadryl, Tylenol, Solu-Medrol, and fluids. After an observation. The patient had near complete resolution of her headache and is requesting discharge home. Repeat neurologic exam is normal. At this time signs and symptoms are clinically consistent with migraine headache. With resolution of her symptoms she can be discharged home with close follow-up. We discussed red flags for which to return. I have extensively reviewed the treatment plan and discharge instructions with the patient and their family. I have addressed all patient concerns at this time. The patient and family was made aware of what symptoms to monitor for that would warrant a return to the emergency department. Discussed the plan with the patient and family, they demonstrate verbal understanding and agreement with our assessment and plan at this time. HPI General Date/Time Provider Initiated Documentation: 09/29/18 15:06 . HPI Narrative: This is a 48-year-old female with a past medical history of migraines, who presents today for evaluation of migraine headache. Patient states that over the last 3 to 4 days she has had this headache, it is been gradual in onset, and has been unresponsive to NSAIDs and rest. She states that it feels similar to her previous headaches but is longer lasting and slightly more severe than normal. Symptoms made worse with bright light and loud noises. She denies any numbness tingling, or weakness. The patient denies any headache red flags of worst headache of life, thunderclap headache, neck pain, fever, chills, concerning family history of polycystic kidney disease, Marfan syndrome, Edi- Danlos syndrome, abdominal aortic aneurysm, aortic dissection, or intracranial aneurysm. She denies any IV or illicit drug use. She denies any pertinent family history or recent surgical history. Related Data Home Medications Medication Instructions Recorded Confirmed Flovent HFA 2 puff INHALATION BID #1 inh 11/08/17 09/17/18 albuterol sulfate [ProAir HFA] 2 puff INHALATION Q6H PRN #1 11/08/17 09/17/18 inhaler divalproex 250 mg PO DAILY #90 tab-cap 11/08/17 09/17/18 ipratropium-albuterol 3 ml UPD Q6H #30 vial 11/08/17 09/17/18 lisinopril 5 mg PO DAILY #90 tab-cap 11/08/17 09/17/18 topiramate 100 mg tablet 100 mg PO BID #180 tab 02/18/18 09/17/18 norethindrone acetate 5 mg tablet 5 mg PO DAILY #90 tab 03/27/18 09/17/18 dicyclomine 10 mg capsule 10 mg PO QID PRN #30 cap 06/12/18 08/17/18 omeprazole 20 mg capsule,delayed 20 mg PO DAILY #90 cap 07/04/18 09/17/18 release carvedilol 3.125 mg tablet 3.125 mg PO BID #180 tab-cap 07/14/18 09/17/18 spironolactone 25 mg tablet 12.5 mg PO DAILY #45 tab-cap 08/05/18 09/17/18 melatonin 5 mg tablet 5 mg PO HS PRN #30 tab 08/12/18 09/17/18 famotidine [Pepcid] 20 mg PO DAILY #7 tab 08/17/18 09/17/18 duloxetine 30 mg capsule,delayed 30 mg PO DAILY #90 cap 09/17/18 release Previous Rx's Medication Instructions Recorded Flovent HFA 2 puff INHALATION BID #1 inh 11/08/17 albuterol sulfate [ProAir HFA] 2 puff INHALATION Q6H PRN #1 11/08/17 inhaler divalproex 250 mg PO DAILY #90 tab-cap 11/08/17 ipratropium-albuterol 3 ml UPD Q6H #30 vial 11/08/17 lisinopril 5 mg PO DAILY #90 tab-cap 11/08/17 topiramate 100 mg tablet 100 mg PO BID #180 tab 02/18/18 norethindrone acetate 5 mg tablet 5 mg PO DAILY #90 tab 03/27/18 dicyclomine 10 mg capsule 10 mg PO QID PRN #30 cap 06/12/18 omeprazole 20 mg capsule,delayed 20 mg PO DAILY #90 cap 07/04/18 release carvedilol 3.125 mg tablet 3.125 mg PO BID #180 tab-cap 07/14/18 spironolactone 25 mg tablet 12.5 mg PO DAILY #45 tab-cap 08/05/18 melatonin 5 mg tablet 5 mg PO HS PRN #30 tab 08/12/18 famotidine [Pepcid] 20 mg PO DAILY #7 tab 08/17/18 duloxetine 30 mg capsule,delayed 30 mg PO DAILY #90 cap 09/17/18 release Allergies Allergy/AdvReac Type Severity Reaction Status Date / Time cyclobenzaprine HCl Allergy Intermediate Skin Rash Unverified 09/29/18 14:43 [From Flexeril] ibuprofen Allergy Intermediate PT REPORTS Unverified 09/29/18 14:43 THAT IBUPROFEN GIVES HER A RASH. latex Allergy Intermediate Skin Rash Unverified 09/29/18 14:43 codeine AdvReac Intermediate Nausea Unverified 09/29/18 14:43 gabapentin AdvReac Intermediate Nausea Unverified 09/29/18 14:43 naproxen AdvReac Intermediate Rash, Unverified 09/29/18 14:43 nausea & vomiting tramadol AdvReac Intermediate Psychosis, Unverified 09/29/18 14:43 pt stated I flip out varenicline tartrate AdvReac Intermediate HALLUCINATI Unverified 09/29/18 14:43 [From Chantix] ONS pregabalin [From Lyrica] AdvReac Dizziness/Lightheaded, Unverified 09/29/18 14:43 weakness, lethargy General Stated Complaint: Headache JUAN MIGUEL: 3 Review of Systems Review of Systems All systems reviewed & are unremarkable except as noted in HPI and below PFSH Medical History (Updated 09/17/18 @ 18:55 by Celina Joshua) Alcohol abuse (Chronic) Anxiety (Chronic) Anxiety (Chronic) Bipolar disorder (Chronic) Cardiomyopathy (Chronic 10/16/07) Chronic abdominal pain (Chronic) Chronic interstitial cystitis (Acute) Chronic post-traumatic stress disorder (Chronic 08/19/09) Claustrophobia (Chronic 06/06/15) Depression (Chronic) Depression (Chronic) Gastroesophageal reflux disease (Chronic) GERD (gastroesophageal reflux disease) (Acute) HTN (hypertension) (Chronic) Hyperlipidemia (Chronic) Migraine (Chronic) 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) Panic attacks (Chronic) Pernicious anemia (Chronic) PTSD (Acute) Shoulder pain (Acute) Smoker (Chronic) Tension type headache (Chronic) Urinary, incontinence, stress female (Chronic) Vitamin B12 deficiency (Acute) Surgical History (Updated 09/02/18 @ 11:23 by Chika Simpson) Cholecystectomy (Acute 04/06/16) Cystoscopy (Acute) H/O shoulder surgery (Chronic) Vaginal hysterectomy (Acute ~2005) Social History (Updated 09/02/18 @ 11:23 by Chika Simpson) Smoking/Tobacco Use Status: Current every day Tobacco Type: cigarettes Alcohol Intake: former Drug use: Occasionally Substance use type: does not use Household members: other Details: 2 current occupation: Unemployed What type of physical activity do you participate in: none Do you feel safe at home: Yes Do you feel safe in your relationship?: Yes Exam Narrative Exam Narrative: 1.Const: Well-nourished, Well-developed, appearing stated age 2.Eyes: PERRL, no conjunctival injection, and symmetrical lids. 3.ENT: Atraumatic external nose and ears. Moist MM. Neck: Symmetric, trachea midline, No thyromegaly. 4.CVS: +S1/S2, No murmurs or gallops. Peripheral pulses 2+ and equal in all extremities. Brisk capillary refill in all extremities. 5.RESP: Unlabored respiratory effort. Clear to auscultation bilaterally. No wheezes rales or rhonchi 6.GI: Soft, Nontender/Nondistended, No hepatosplenomegaly. No guarding or rebound. 7.MSK: Normocephalic/Atraumatic, Extremities w/o deformity or ttp No cyanosis or clubbing, Normal movement of all extremities patient demonstrates good movement of cervical neck. There is no nuchal rigidity, no nuchal tenderness. Patient is able to flex the neck without any difficulty or significant pain. Negative Kernig's and Brudzinski sign. 8.Skin: Warm, Dry. No rashes or lesions. 9.Neuro: unit secretary II-XII grossly intact. Sensation grossly intact, no focal neurologic deficits. All 6 cardinal planes of vision are fully intact. No evidence of rotatory or vertical nystagmus. The patient demonstrated a normal kriqdx-qoqc-vopsnn, good dexterity. There was no evidence of dysdiadochokinesia. Patient was able to ambulate without difficulty. There was no wide-based gait. Romberg, and fbvw-xa-kehv are both normal on testing. Sensation was intact bilaterally as well as muscle strength bilaterally for all extremities. Patient was able to verbalize butter cup with no slurring, or miss pronunciation. 10.Psych: (AAO) x3. Appropriate mood and affect Course Vital Signs Temperature 36.6 C 09/29/18 14:40 Pulse 70 09/29/18 14:40 Respiratory Rate 14 09/29/18 14:40 Blood Pressure 125/79 09/29/18 14:40 Pulse Oximetry 95 09/29/18 14:40 Temperature 36.6 C 09/29/18 14:40 Pulse 70 09/29/18 14:40 Respiratory Rate 14 09/29/18 14:40 Respiratory Effort Non-Labored 09/29/18 14:42 Blood Pressure 125/79 09/29/18 14:40 Blood Pressure Position Sitting 09/29/18 14:40 Pulse Oximetry 95 09/29/18 14:40 Oxygen Delivery Method Room Air 09/29/18 14:40 Oxygen Flow Rate 0 09/29/18 14:40 Pain Level 9 09/29/18 14:40
[2018-09-29 16:19] VITALS: BP 104/67; PULSE 66; RESP 16; TEMP 36.9; O2SAT 98
== END 2018-09-29 16:28 | disposition home or self-care (01) ==
PROVIDERS: Emergency Provider Student in an Organized Health Care Education/Training Program; PCP Nurse Practitioner
DX: G43.909 Migraine, unspecified, not intractable, without status migrainosus (principal); I10 Essential (primary) hypertension
CPT/HCPCS: 96374; 96375; 99284; J1200; J1885; J2765; J2930

== ENCOUNTER 2018-10-10 17:44 | Emergency (ER) | payer MEDICAID, SELFPAY ==
[2018-10-10 17:47] VITALS: BP 121/75; PULSE 78; RESP 20; TEMP 36.9; O2SAT 98
--- NOTE | 2018-10-10 17:53 | DI.CT_ITS ---
SYMPTOMS/DIAGNOSIS: RT SIDED ABD PAIN CT SCAN OF THE ABDOMEN AND PELVIS: Routine examination was performed. No acute findings are seen in the lung bases. The liver is normal in size. No suspicious hepatic mass is seen. The portal, superior mesenteric and splenic veins are patent. The patient is status post cholecystectomy. There is no biliary ductal dilatation. The pancreas, spleen and adrenal glands are unremarkable. There are nonobstructing stones in the left kidney. The right kidney is unremarkable. The kidneys show normal and symmetric enhancement. No solid renal mass is present. The urinary bladder is intact. The reproductive organs are unremarkable as visualized. The bowel shows no evidence of obstruction, inflammation or infection. A normal appendix is present. The abdominal aorta is of normal caliber. No significant abdominal or pelvic adenopathy, ascites or pneumoperitoneum is seen. No acute osseous abnormality is identified. IMPRESSION: 1. No evidence of an acute abdominal or pelvic process. 2. Left nephrolithiasis.
--- NOTE | 2018-10-10 17:55 | W.ED.GENAD ---
Discharge Plan Disposition Patient Disposition: HOME Condition: Stable Discharge Details Chief Complaint: Abd Prob Clinical Impression: Abdominal pain Primary Care Provider: Lalitha Drummond ED Provider: Nader Hopson Home Meds and New Rx's Prescriptions: New diazepam [Valium] 5 mg tablet 5 mg PO TID PRN (Reason: muscle spasm) Qty: 10 RF: 0 ondansetron 4 mg tablet,disintegrating 4 mg PO Q8H PRN (Reason: nausea and vomiting) Qty: 30 RF: 0 Continued ipratropium-albuterol 3 ML solution for nebulization 3 ml UPD Q6H Qty: 30 RF: 0 divalproex 250 MG tablet,delayed release (DR/EC) 250 mg PO DAILY Qty: 90 RF: 3 lisinopril 5 MG tablet 5 mg PO DAILY Qty: 90 RF: 4 albuterol sulfate [ProAir HFA] 8.5 GM HFA aerosol inhaler 2 puff Inhalation Q6H PRN Qty: 1 RF: 4 Flovent HFA 120 PUFF HFA aerosol inhaler 2 puff Inhalation BID Qty: 1 RF: 11 topiramate [Topamax] 100 mg tablet 100 mg PO BID Qty: 180 RF: 4 norethindrone acetate 5 mg tablet 5 mg PO DAILY Qty: 90 RF: 4 omeprazole 20 mg capsule,delayed release(DR/EC) 20 mg PO DAILY Qty: 90 RF: 3 carvedilol [Coreg] 3.125 mg tablet 3.125 mg PO BID Qty: 180 RF: 4 spironolactone 25 mg tablet 12.5 mg PO DAILY Qty: 45 RF: 4 melatonin 5 mg tablet 5 mg PO HS PRN (Reason: sleep) Qty: 30 RF: 3 duloxetine 30 mg capsule,delayed release(DR/EC) 30 mg PO DAILY Qty: 90 RF: 0 famotidine [Pepcid] 20 mg tablet 20 mg PO DAILY Qty: 7 RF: 0 Discharge Instructions Instructions: Abdominal Pain (ED) Additional Instructions: your lab work and cat scan did not show a cause for your symptoms if symptoms continue next week see your primary care provider if you have severe worsening pain or persistent vomit return to the emergency department for evaluation Medical Decision Making 48 yo female with hx of prior partial hysterectomy per pt comes in with right lower/oblique area pain worsening over a day. Denies vomit but has had nausea. No changes in bowel movements, no diarrhea. She does have tenderness in the right oblique as well as rlq without guarding or rebound. Given location of pain will obtain lab work and imaging to eval for appendicitis among other pathology labs show mild anion gap acidosis likely from dehydration, ct and other labs unremarkable otherwise. She remains stable has point tenderness over the right oblique now without rash. Could be muscle strain vs spasm. Will d/c and advised f/u withp cp and return precautions given Differential Diagnosis muscle spasm, appendicitis, kidney stone Medical Records Medical records reviewed: Yes I reviewed the patient's medical records. Imaging Data Radiologic Study: Attestation: I personally reviewed and interpreted this imaging study as follows: Imaging: CT Scan Radiologist's impression: 1. No acute intra-abdominal process is identified. 2. 2 small non-obstructing left lower pole renal calculi. Lab Data Lab results reviewed: Yes I reviewed the patient's lab results. HPI General Mode of arrival: wheelchair. Date/Time Provider Initiated Documentation: 10/10/18 17:44. Limitations to Documentation: no limitations. Information obtained by: patient. History of Present Illness 48 year old F presents to the emergency department with the chief complaint of right sided abdominal pain, described as moderate, Quality is described as stabbing and aching, and is localized to the abdomen. Patient reports no radiation. Patient started experiencing this day(s) (1) and it has been constant. No relieving factors improve symptom(s), No exacerbating factors reported . Patient did receive the following treatments prior to arrival, none Related Data Home Medications Medication Instructions Recorded Confirmed Flovent HFA 2 puff INHALATION BID #1 inh 11/08/17 10/10/18 albuterol sulfate [ProAir HFA] 2 puff INHALATION Q6H PRN #1 11/08/17 10/10/18 inhaler divalproex 250 mg PO DAILY #90 tab-cap 11/08/17 10/10/18 ipratropium-albuterol 3 ml UPD Q6H #30 vial 11/08/17 10/10/18 lisinopril 5 mg PO DAILY #90 tab-cap 11/08/17 10/10/18 topiramate 100 mg tablet 100 mg PO BID #180 tab 02/18/18 10/10/18 norethindrone acetate 5 mg tablet 5 mg PO DAILY #90 tab 03/27/18 10/10/18 omeprazole 20 mg capsule,delayed 20 mg PO DAILY #90 cap 07/04/18 10/10/18 release carvedilol 3.125 mg tablet 3.125 mg PO BID #180 tab-cap 07/14/18 10/10/18 spironolactone 25 mg tablet 12.5 mg PO DAILY #45 tab-cap 08/05/18 10/10/18 melatonin 5 mg tablet 5 mg PO HS PRN #30 tab 08/12/18 10/10/18 famotidine [Pepcid] 20 mg PO DAILY #7 tab 08/17/18 10/10/18 duloxetine 30 mg capsule,delayed 30 mg PO DAILY #90 cap 09/17/18 10/10/18 release diazepam [Valium] 5 mg PO TID PRN #10 tab 10/10/18 ondansetron 4 mg PO Q8H PRN #30 tab 10/10/18 Previous Rx's Medication Instructions Recorded Flovent HFA 2 puff INHALATION BID #1 inh 11/08/17 albuterol sulfate [ProAir HFA] 2 puff INHALATION Q6H PRN #1 11/08/17 inhaler divalproex 250 mg PO DAILY #90 tab-cap 11/08/17 ipratropium-albuterol 3 ml UPD Q6H #30 vial 11/08/17 lisinopril 5 mg PO DAILY #90 tab-cap 11/08/17 topiramate 100 mg tablet 100 mg PO BID #180 tab 02/18/18 norethindrone acetate 5 mg tablet 5 mg PO DAILY #90 tab 03/27/18 omeprazole 20 mg capsule,delayed 20 mg PO DAILY #90 cap 07/04/18 release carvedilol 3.125 mg tablet 3.125 mg PO BID #180 tab-cap 07/14/18 spironolactone 25 mg tablet 12.5 mg PO DAILY #45 tab-cap 08/05/18 melatonin 5 mg tablet 5 mg PO HS PRN #30 tab 08/12/18 famotidine [Pepcid] 20 mg PO DAILY #7 tab 08/17/18 duloxetine 30 mg capsule,delayed 30 mg PO DAILY #90 cap 09/17/18 release diazepam [Valium] 5 mg PO TID PRN #10 tab 10/10/18 ondansetron 4 mg PO Q8H PRN #30 tab 10/10/18 Allergies Allergy/AdvReac Type Severity Reaction Status Date / Time cyclobenzaprine HCl Allergy Intermediate Skin Rash Unverified 10/10/18 17:53 [From Flexeril] ibuprofen Allergy Intermediate PT REPORTS Unverified 10/10/18 17:53 THAT IBUPROFEN GIVES HER A RASH. latex Allergy Intermediate Skin Rash Unverified 10/10/18 17:53 codeine AdvReac Intermediate Nausea Unverified 10/10/18 17:53 gabapentin AdvReac Intermediate Nausea Unverified 10/10/18 17:53 naproxen AdvReac Intermediate Rash, Unverified 10/10/18 17:53 nausea & vomiting tramadol AdvReac Intermediate Psychosis, Unverified 10/10/18 17:53 pt stated I flip out varenicline tartrate AdvReac Intermediate HALLUCINATI Unverified 10/10/18 17:53 [From Chantix] ONS pregabalin [From Lyrica] AdvReac Dizziness/Lightheaded, Unverified 10/10/18 17:53 weakness, lethargy General Stated Complaint: Abd Prob JUAN MIGUEL: 3 Review of Systems Review of Systems All systems reviewed & are unremarkable except as noted in HPI and below Constitutional Denies chills, Denies fever(s) and Denies weakness ENT Denies change in voice Cardiovascular Denies chest pain and Denies dyspnea Respiratory Denies cough and Denies dyspnea Gastrointestinal Denies vomiting Musculoskeletal Denies joint swelling Neurologic Denies weakness Endocrine Denies heat intolerance PFSH Family History (Updated 10/08/18 @ 15:34 by Amanda Melendez RN) Mother Diabetes Essential hypertension Heart disease Myocardial infarction Brother Essential hypertension Myocardial infarction Grandmother Essential hypertension Social History (Updated 10/08/18 @ 15:38 by Amanda Melendez RN) Smoking/Tobacco Use Status: Current every day Tobacco Type: cigarettes Alcohol Intake: current Alcohol Intake frequency: a few times a month Alcohol type: beer Drug use: Occasionally Substance use type: marijuana Adopted: No Foster care: Yes Household members: significant other and other Details: 2 Housing: apartment Number of Children: 2 Education Level: other Details: 11 current occupation: Unemployed What type of physical activity do you participate in: walking Frequency: daily Seatbelt use: always 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 Working smoke detector in home: Yes Fire extinguisher in home: Yes Carbon monox detector in home: No Do you feel safe at home: Yes Do you feel safe in your relationship?: Yes Exam Const General: no acute distress Orientation: alert HENMT Head: normal to inspection Ears: external ears normal General nose exam: external nose normal Mouth: moist mucous membranes Eyes General: appearance normal, both eyes and all related structures Neck Neck: normal visual inspection Resp Effort & Inspection: normal respiratory effort and able to speak in complete sentences Cardio Rate: regular rate GI Palpation: soft Skin General skin exam: no rashes or lesions noted Neuro General: alert and oriented x3 Extrem General: normal to inspection Psych Mental Status: mental status grossly normal Course Vital Signs Temperature 36.9 C 10/10/18 17:47 Pulse 78 10/10/18 17:47 Respiratory Rate 20 10/10/18 17:47 Blood Pressure 121/75 10/10/18 17:47 Pulse Oximetry 98 10/10/18 17:47 Temperature 36.9 C 10/10/18 17:47 Temperature Source Tympanic 10/10/18 17:47 Pulse 78 10/10/18 17:47 Respiratory Rate 20 10/10/18 17:47 Respiratory Effort Non-Labored 10/10/18 17:47 Blood Pressure 121/75 10/10/18 17:47 Blood Pressure Position Sitting 10/10/18 17:47 Pulse Oximetry 98 10/10/18 17:47 Oxygen Delivery Method Room Air 10/10/18 17:47 Oxygen Flow Rate 0 10/10/18 17:47 Pain Level 9 10/10/18 17:51
[2018-10-10] MEDS: Normal Saline Flush 10 ML SYR IVP (18:00)
[2018-10-10 18:12] LABS: Abs Immature Grans 0.08 k/cumm (0.0-0.09); Absolute Basophil Count 0.02 k/cumm (0.0-0.2); Absolute Eosinophil Count 0.43 k/cumm (0.0-0.7); Absolute Lymphocyte Count 2.38 k/cumm (1.2-3.4); Absolute Monocyte Count 0.61 k/cumm (0.11-0.7); Absolute Neutrophil Count 6.32 k/cumm (1.2-6.7); Basophils % 0.2; Eosinophils % 4.4; HCT 45.6 % (36.0-46.0); HGB 15.5 g/dL (12.0-15.5); Immature Grans % 0.8; Lymphocytes % 24.2; Mean Corpuscular Hemoglobin 31.4 pg (27.0-33.0); Mean Corpuscular Volume 92.5 fL (80-95); Mean Platelet Volume 10.3 fL (8.0-11.0); Monocytes % 6.2; Neutrophils % 64.2; Platelet Count 214 x1000/uL (130-400); RBC 4.93 m/cumm (4.00-5.20); RBC Distribution Width 15.6 % (11.7-14.6); White Blood Cell Count 9.84 k/cumm (4.4-10.8)
[2018-10-10] MEDS: Omnipaque 350 MG/ML 100 ML BTL IJ (18:25)
[2018-10-10 18:27] LABS: ALT 23 U/L (12-78); AST 8 U/L (15-37); Alkaline Phosphatase 60 U/L (46-116); Anion Gap 14.4 mmol/L (3-11); BUN 8 mg/dL (7-18); Bilirubin, Total 0.2 mg/dL (0.2-1.0); CO2 19.6 mmol/L (21.0-32.0); CREATININE 0.83 mg/dL (0.55-1.02); Calcium 8.4 mg/dL (8.5-10.1); Chloride 108 mmol/L (98-107); Glucose 106 mg/dL (70-100); INR 0.9 (0.9-1.1); Lipase 217 U/L (73-393); Magnesium 1.9 mg/dL (1.8-2.4); PTT Activated 23.2 sec (21.0-31.4); Potassium 3.6 mmol/L (3.5-5.1); Prothrombin Time 9.4 sec (9.3-11.0); Sodium 142 mmol/L (136-145); Total Protein 6.6 g/dL (6.4-8.2)
[2018-10-10] MEDS: Normal Saline 1,000 ML 1000 ML IV (18:29)
[2018-10-10 18:35] LABS: Bilirubin Negative (Negative); Blood Negative (Negative); Clarity Cloudy (Clear); Glucose Negative (Negative); Ketones 15 mg/dL (Negative); Leukocyte Esterase Negative (Negative); Nitrite Negative (Negative); Specific Gravity 1.015 (1.005-1.025)
[2018-10-10] MEDS: Acetaminophen 500 MG TAB 1000 MG PO (18:47)
--- NOTE | 2018-10-10 18:55 | DI.VRAD_ITS ---
EXAM: CT Abdomen and Pelvis With Contrast EXAM DATE/TIME: 10/10/2018 5:55 PM CLINICAL HISTORY: 48 years old, female; Localized; Right lower quadrant (rlq); Patient HX: Right sided abdominal pain TECHNIQUE: Imaging protocol: Axial computed tomography images of the abdomen and pelvis with intravenous contrast. Coronal and sagittal reformatted images were created and reviewed. COMPARISON: CT ABDOMEN PELVIS W 06/10/2018 1:31 PM FINDINGS: Liver: The liver is normal. Gallbladder and bile ducts: Status post cholecystectomy. Pancreas: The pancreas is normal. Spleen: The spleen is normal. Adrenals: No adrenal mass is present. Kidneys and ureters: There is a 2 mm and a 3 mm nonobstructing left lower pole renal calculus. Stomach and bowel: There is scattered colonic diverticulosis without evidence of diverticulitis. Appendix: No evidence of appendicitis. Intraperitoneal space: Normal. No free air. No significant fluid collection. Vasculature: Normal. No abdominal aortic aneurysm. Lymph nodes: Normal. No enlarged lymph nodes. Bladder: Unremarkable as visualized. Reproductive: Unremarkable as visualized. Bones/joints: No acute fracture. No dislocation. Soft tissues: Unremarkable. IMPRESSION: 1. No acute intra-abdominal process is identified. 2. 2 small non-obstructing left lower pole renal calculi. Dictated and Authenticated by: Jose Luis Simon MD. Ordering:SHILOH Doe MD
[2018-10-10 19:04] VITALS: BP 116/68; PULSE 61; RESP 16; TEMP 36.2; O2SAT 99
== END 2018-10-10 19:10 | disposition home or self-care (01) ==
PROVIDERS: Emergency Provider Emergency Medicine; PCP Nurse Practitioner
DX: R11.0 Nausea (principal); R10.31 Right lower quadrant pain; E87.2 Acidosis
CPT/HCPCS: 36415; 80053; 83690; 96360; 99285; 74177; 81003; 83735; 85025; 85610; 85730; 99284; J3490

== ENCOUNTER 2018-10-27 09:17 | Outpatient (CLI) | payer MEDICAID, SELFPAY ==
[2018-10-27 11:20] LABS: Calculated LDL 170 mg/dL; Cholesterol 211 mg/dL (50-200); HDL Cholesterol 20 mg/dL (40-60); Triglyceride 105 mg/dL (30-150)
== END 2018-10-27 09:37 ==
PROVIDERS: PCP Nurse Practitioner; Visit Provider Nurse Practitioner
DX: E78.5 Hyperlipidemia, unspecified (principal)
CPT/HCPCS: 36415; 80061; 83721

== ENCOUNTER 2018-11-15 15:18 | Emergency (ER) | payer MEDICAID, SELFPAY ==
[2018-11-15 15:24] VITALS: BP 124/78; PULSE 92; RESP 16; TEMP 36.7; O2SAT 200
--- NOTE | 2018-11-15 15:45 | DI.RAD_ITS ---
SYMPTOMS/DIAGNOSIS: PAIN, INVERTED, TENDERNESS TO PALPATION, UNABLE TO DORSIFLEX RIGHT FOOT: No fracture or dislocation is seen. IMPRESSION: Negative right foot. RIGHT ANKLE: There is some soft tissue swelling around the malleoli. No fracture or ankle mortise widening is seen. No talar dome defect is seen. IMPRESSION: Soft tissue swelling.
--- NOTE | 2018-11-15 16:32 | DI.VRAD_ITS ---
EXAM: XR Right Foot Complete EXAM DATE/TIME: 11/15/2018 3:48 PM CLINICAL HISTORY: 48 years old, female; Other: Pain, inverted, ttp dorsal TECHNIQUE: Imaging protocol: XR Right foot. Views: 3 or more views. COMPARISON: CR XR foot RT complete 12/19/2017 7:40 PM FINDINGS: Bones/joints: Normal. Soft tissues: Normal. IMPRESSION: No acute findings. Dictated and Authenticated by: Jazmine Nugent MD. Ordering:KEVEN Jean-Baptiste MD
--- NOTE | 2018-11-15 16:32 | DI.VRAD_ITS ---
EXAM: XR Right Ankle EXAM DATE/TIME: 11/15/2018 3:43 PM CLINICAL HISTORY: 48 years old, female; Other: Pain, injury TECHNIQUE: Imaging protocol: XR Right ankle. Views: 3 or more views. COMPARISON: CR RIGHT ANKLE COMPLETE 12/05/2016 11:23 AM FINDINGS: Bones/joints: Normal. Soft tissues: Soft tissue edema. IMPRESSION: No fractures Soft tissue edema Dictated and Authenticated by: Jazmine Nugent MD. Ordering:KEVEN Jean-Baptiste MD
--- NOTE | 2018-11-15 16:55 | ED.GENADUL_ITS ---
Discharge Plan Disposition Patient Disposition: HOME Discharge Details Chief Complaint: Orthopedic Clinical Impression: Right ankle sprain Primary Care Provider: Lalitha Drummond ED Provider: Estiven Goins Home Meds and New Rx's Prescriptions: Continued ipratropium-albuterol 3 ML solution for nebulization 3 ml UPD Q6H Qty: 30 RF: 0 lisinopril 5 MG tablet 5 mg PO DAILY Qty: 90 RF: 4 albuterol sulfate [ProAir HFA] 8.5 GM HFA aerosol inhaler 2 puff Inhalation Q6H PRN Qty: 1 RF: 4 Flovent HFA 120 PUFF HFA aerosol inhaler 2 puff Inhalation BID Qty: 1 RF: 11 topiramate [Topamax] 100 mg tablet 100 mg PO BID Qty: 180 RF: 4 norethindrone acetate 5 mg tablet 5 mg PO DAILY Qty: 90 RF: 4 omeprazole 20 mg capsule,delayed release(DR/EC) 20 mg PO DAILY Qty: 90 RF: 3 carvedilol [Coreg] 3.125 mg tablet 3.125 mg PO BID Qty: 180 RF: 4 spironolactone 25 mg tablet 12.5 mg PO DAILY Qty: 45 RF: 4 melatonin 5 mg tablet 5 mg PO HS PRN (Reason: sleep) Qty: 30 RF: 3 duloxetine 30 mg capsule,delayed release(DR/EC) 30 mg PO DAILY Qty: 90 RF: 0 divalproex 250 mg tablet,delayed release (DR/EC) 250 mg PO DAILY Qty: 90 RF: 3 famotidine [Pepcid] 20 mg tablet 20 mg PO DAILY Qty: 7 RF: 0 diazepam [Valium] 5 mg tablet 5 mg PO TID PRN (Reason: muscle spasm) Qty: 10 RF: 0 ondansetron 4 mg tablet,disintegrating 4 mg PO Q8H PRN (Reason: nausea and vomiting) Qty: 30 RF: 0 Discharge Instructions Instructions: Ankle Sprain (ED) Additional Instructions: Please use lace up ankle stabilizer and crutches for the next 2 weeks. Please contact your primary care physician to arrange follow-up. Return to the ER for any worsening or new concerning symptoms. Referrals: Lalitha Drummond NP [Primary Care Provider] - Medical Decision Making 48-year-old female here after inversion injury right ankle with tenderness right lateral ankle, anterior ankle and dorsal proximal foot. Neurovascular intact distally. Considered fracture of the foot or ankle. X-rays interpreted by radiology as no acute fracture. She has soft tissue edema. Suspect ankle sprain. Lace up ankle stabilizer provided. Patient was offered crutches which she refused and notes she has some at home. Usual and customary discharge instructions were provided. HPI General Mode of arrival: ambulatory . Date/Time Provider Initiated Documentation: 11/15/18 15:42 . Limitations to Documentation: no limitations . Information obtained by: patient . HPI Narrative: 48-year-old female presents with chief complaint of ankle pain. Patient notes she inverted her ankle just prior to arrival. Pain is localized to her right ankle and right dorsal foot. Pain is moderate and worse with ambulation. No associated numbness or weakness. No other injury. Related Data Home Medications Medication Instructions Recorded Confirmed Flovent HFA 2 puff INHALATION BID #1 inh 11/08/17 11/15/18 albuterol sulfate [ProAir HFA] 2 puff INHALATION Q6H PRN #1 11/08/17 11/15/18 inhaler ipratropium-albuterol 3 ml UPD Q6H #30 vial 11/08/17 11/15/18 lisinopril 5 mg PO DAILY #90 tab-cap 11/08/17 11/15/18 topiramate 100 mg tablet 100 mg PO BID #180 tab 02/18/18 11/15/18 norethindrone acetate 5 mg tablet 5 mg PO DAILY #90 tab 03/27/18 11/15/18 omeprazole 20 mg capsule,delayed 20 mg PO DAILY #90 cap 07/04/18 11/15/18 release carvedilol 3.125 mg tablet 3.125 mg PO BID #180 tab-cap 07/14/18 11/15/18 spironolactone 25 mg tablet 12.5 mg PO DAILY #45 tab-cap 08/05/18 11/15/18 melatonin 5 mg tablet 5 mg PO HS PRN #30 tab 08/12/18 11/15/18 famotidine [Pepcid] 20 mg PO DAILY #7 tab 08/17/18 11/15/18 duloxetine 30 mg capsule,delayed 30 mg PO DAILY #90 cap 07/03/19 08/31/19 release diazepam [Valium] 5 mg PO TID PRN #10 tab 10/10/18 11/15/18 ondansetron 4 mg PO Q8H PRN #30 tab 10/10/18 11/15/18 divalproex 250 mg tablet,delayed 250 mg PO DAILY #90 tab-cap 10/27/18 11/15/18 release Previous Rx's Medication Instructions Recorded Flovent HFA 2 puff INHALATION BID #1 inh 11/08/17 albuterol sulfate [ProAir HFA] 2 puff INHALATION Q6H PRN #1 11/08/17 inhaler ipratropium-albuterol 3 ml UPD Q6H #30 vial 11/08/17 lisinopril 5 mg PO DAILY #90 tab-cap 11/08/17 topiramate 100 mg tablet 100 mg PO BID #180 tab 02/18/18 norethindrone acetate 5 mg tablet 5 mg PO DAILY #90 tab 03/27/18 omeprazole 20 mg capsule,delayed 20 mg PO DAILY #90 cap 07/04/18 release carvedilol 3.125 mg tablet 3.125 mg PO BID #180 tab-cap 07/14/18 spironolactone 25 mg tablet 12.5 mg PO DAILY #45 tab-cap 08/05/18 melatonin 5 mg tablet 5 mg PO HS PRN #30 tab 08/12/18 famotidine [Pepcid] 20 mg PO DAILY #7 tab 08/17/18 duloxetine 30 mg capsule,delayed 30 mg PO DAILY #90 cap 09/17/18 release diazepam [Valium] 5 mg PO TID PRN #10 tab 10/10/18 ondansetron 4 mg PO Q8H PRN #30 tab 10/10/18 divalproex 250 mg tablet,delayed 250 mg PO DAILY #90 tab-cap 10/27/18 release Allergies Allergy/AdvReac Type Severity Reaction Status Date / Time acetaminophen [From Tylenol] Allergy Intermediate Skin Rash Unverified 11/15/18 15:29 cyclobenzaprine HCl Allergy Intermediate Skin Rash Verified 11/15/18 15:27 [From Flexeril] ibuprofen Allergy Intermediate PT REPORTS Verified 11/15/18 15:27 THAT IBUPROFEN GIVES HER A RASH. latex Allergy Intermediate Skin Rash Verified 11/15/18 15:27 codeine AdvReac Intermediate Nausea Verified 11/15/18 15:27 gabapentin AdvReac Intermediate Nausea Verified 11/15/18 15:27 naproxen AdvReac Intermediate Rash, Verified 11/15/18 15:27 nausea & vomiting tramadol AdvReac Intermediate Psychosis, Verified 11/15/18 15:27 pt stated I flip out varenicline tartrate AdvReac Intermediate HALLUCINATI Verified 11/15/18 15:27 [From Chantix] ONS pregabalin [From Lyrica] AdvReac Dizziness/Lightheaded, Verified 11/15/18 15:27 weakness, lethargy General Stated Complaint: Orthopedic JUAN MIGUEL: 4 Review of Systems Musculoskeletal Reports as per HPI [facility] Medical History Alcohol abuse (Chronic) Anxiety (Chronic) Anxiety (Chronic) Bipolar disorder (Chronic) Cardiomyopathy (Chronic 10/16/07) ECHO 10/2007=EF 47% Chronic abdominal pain (Chronic) longstanding. neg pelvic CT, 2013 nl pelvic u/s. Chronic interstitial cystitis (Acute) 2010 Rx @ [facility] [place] with inj. 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 managed by Dr. Hughes. Smoker (Chronic) Tension type headache (Chronic) Urinary, incontinence, stress female (Chronic) Vitamin B12 deficiency (Acute) Surgical History Cholecystectomy (Acute 04/06/16) Cystoscopy (Acute) 06/09/15 H/O shoulder surgery (Chronic) Vaginal hysterectomy (Acute ~2005) Family History Mother Diabetes Essential hypertension Heart disease Myocardial infarction Brother Essential hypertension Myocardial infarction Grandmother Essential hypertension Social History Smoking/Tobacco Use Status: Current every day Tobacco Type: cigarettes Alcohol Intake: current Alcohol Intake frequency: a few times a month Alcohol type: beer Drug use: Occasionally Substance use type: marijuana Adopted: No Foster care: Yes Household members: significant other and other Details: 2 Housing: apartment Number of Children: 2 Education Level: other Details: 11 current occupation: Unemployed What type of physical activity do you participate in: walking Frequency: daily Seatbelt use: always Drive intox or ride w/intox drivers license examiner: No Working smoke detector in home: Yes Fire extinguisher in home: Yes Carbon monox detector in home: No Do you feel safe at home: Yes Do you feel safe in your relationship?: Yes Exam Const General: cooperative and healthy appearing Orientation: alert and awake Extrem Right lower extremity: ankle Details: tenderness Location: of the lateral malleolus and anterolaterally and foot Details: tenderness Location: of the dorsal foot Location: proximally, toes with normal ROM, vascular exam Details: dorsalis pedis pulse present and motor-sensory exam (nl) Course Vital Signs Temperature 36.7 C 11/15/18 15:24 Pulse 92 H 11/15/18 15:24 Respiratory Rate 16 11/15/18 15:24 Blood Pressure 124/78 11/15/18 15:24 Pulse Oximetry 200 H 11/15/18 15:24 Temperature 36.7 C 11/15/18 15:24 Temperature Source Skin 11/15/18 15:24 Pulse 92 H 11/15/18 15:24 Respiratory Rate 16 11/15/18 15:24 Respiratory Effort Non-Labored 11/15/18 15:29 Blood Pressure 124/78 11/15/18 15:24 Pulse Oximetry 200 H 11/15/18 15:24 Pain Level 8 11/15/18 15:33
== END 2018-11-15 17:25 | disposition home or self-care (01) ==
PROVIDERS: Emergency Provider Student in an Organized Health Care Education/Training Program; PCP Nurse Practitioner
DX: S93.401A Sprain of unspecified ligament of right ankle, initial encounter (principal); X50.9XXA Other and unspecified overexertion or strenuous movements or postures, initial encounter; I10 Essential (primary) hypertension
CPT/HCPCS: 29515; 99284; 73610; 73630; 99283; L1902

== ENCOUNTER 2018-12-10 00:56 | Outpatient (CLI) | payer MEDICAID, SELFPAY ==
--- NOTE | 2018-12-10 11:51 | DI.MAMMO_ITS ---
EXAM: MG MAMMO SCREENING CLINICAL HISTORY: screening Z12.31. TECHNIQUE: Mammograms were interpreted according to the usual protocol including computer analysis w [employer] CAD system, tomosynthesis and C-view imaging. COMPARISON: No exams were available for comparison FINDINGS: The breast tissue is primarily of fatty radiodensity. There is no evidence of a mass. There are no suspicious calcifications. IMPRESSION: No evidence of malignancy, category 1. Yearly screening mammography is recommended. BI-RADS category A. BI-RADS Cat 1 - Negative. Breast Density - Category A - Almost entirely fatty.
== END 2018-12-10 01:16 ==
PROVIDERS: PCP Nurse Practitioner; Visit Provider Nurse Practitioner
DX: Z12.31 Encounter for screening mammogram for malignant neoplasm of breast (principal)
CPT/HCPCS: 77063; 77067

== ENCOUNTER 2019-01-01 16:03 | Emergency (ER) | payer MEDICAID, SELFPAY ==
[2019-01-01 16:09] VITALS: BP 111/70; PULSE 81; RESP 16; TEMP 36.5; O2SAT 97
--- NOTE | 2019-01-01 16:38 | W.ED.GENAD ---
Discharge Plan Disposition Patient Disposition: HOME Condition: Improving Discharge Details Chief Complaint: Nausea/Vomit/Diar Clinical Impression: Abdominal pain, vomiting, and diarrhea Primary Care Provider: Lalitha Drummond ED Provider: Ana Vizcarra Home Meds and New Rx's Prescriptions: No Action duloxetine 30 mg capsule,delayed release(DR/EC) 40 mg PO DAILY RF: 0 divalproex 250 mg tablet,delayed release (DR/EC) 250 mg PO DAILY RF: 0 loratadine 10 mg capsule 10 mg PO DAILY PRN (Reason: allergy symptoms) Qty: 90 RF: 3 ipratropium-albuterol 3 ML solution for nebulization 3 ml UPD Q6H Qty: 30 RF: 0 albuterol sulfate [ProAir HFA] 8.5 GM HFA aerosol inhaler 2 puff Inhalation Q6H PRN Qty: 1 RF: 4 Flovent HFA 120 PUFF HFA aerosol inhaler 2 puff Inhalation BID Qty: 1 RF: 11 topiramate [Topamax] 100 mg tablet 100 mg PO BID Qty: 180 RF: 4 norethindrone acetate 5 mg tablet 5 mg PO DAILY Qty: 90 RF: 4 omeprazole 20 mg capsule,delayed release(DR/EC) 20 mg PO DAILY Qty: 90 RF: 3 carvedilol [Coreg] 3.125 mg tablet 3.125 mg PO BID Qty: 180 RF: 4 spironolactone 25 mg tablet 12.5 mg PO DAILY Qty: 45 RF: 4 melatonin 5 mg tablet 5 mg PO HS PRN (Reason: sleep) Qty: 30 RF: 3 lisinopril 5 mg tablet 5 mg PO DAILY Qty: 90 RF: 4 lorazepam 1 mg tablet 1 mg PO DAILY PRNRF: 0 diphenhydramine HCl [Allergy (diphenhydramine)] 25 mg capsule 25 mg PO QHS RF: 0 Discharge Instructions Instructions: Abdominal Pain (ED) Additional Instructions: Drink plenty of fluids, stay well-hydrated. Observe for any signs of dehydration as discussed. Rest activities as tolerated. Follow-up with your primary care doctor in the next few days as discussed. For any alarming symptoms, worsening or concerns have immediate reevaluation in the emergency room. Your CT scan is reassuring this evening. Return if needed for worsening or alarming symptoms Medical Decision Making <ESTELITA Nice - Last Filed: 01/01/19 23:42> Is a 48-year-old patient presents with significant medical problems specifically chronic abdominal pain, chronic interstitial cystitis, anxiety, psych disorders, reflux. She presents with right-sided abdominal pain and the right lower quadrant. Patient is status post cholecystectomy several years previous. Patient reports nausea vomiting and diarrhea for the last 2 days. Patient reports she does have chronic right-sided abdominal pain but this seems quite different in character. Patient also reports associated difficulty eating which is atypical of her presentation. Patient reports increase in pain when eating. Patient reports moderate amounts of diarrhea. Several episodes of vomiting. No associated blood or mucus in bowel movements. Patient denies measured fevers or chills. Patient reports she is able to drink fluids by mouth without difficulty or increase in her abdominal pain however she feels the fluids go right through her. Patient does report a single episode of dizziness today. Feels steady on her feet. On exam patient is noted to have moderate right lower quadrant abdominal tenderness. Patient does deny urinary tract symptoms. Given patient's moderate right lower quadrant tenderness overlying McBurney's point CT scan was ordered. Spoke with patient regarding pain management. Patient reports she has been taking Excedrin without difficulty or allergic reaction at home. Patient requesting medication for pain. Offered either Motrin or Tylenol both noted to be on her allergy list. Patient will prefer IV Toradol trial at this time. Patient feeling improved after Toradol. Patient CT of her abdomen reveals no acute findings, stable nonobstructing left inferior renal calculi, status post cholecystectomy, absent uterus and ovary and unremarkable appendix. Patient requesting discharge home at this time. Patient feels stable for discharge home. Patient does feel continued improvement. CT and labs reassuring that there is likely no acute intra-abdominal process at this time. Patient encouraged close of the primary care doctor. [place] diet. The patient was stable and requested discharge. Prior to discharge, my usual and customary return precautions were reviewed with the patient - this included follow-up instructions and reasons to return to the Emergency Department if conditions worsens, does not improve as expected, or other new concerns arise. HPI <ESTELITA Nice - Last Filed: 01/01/19 23:42> General Date/Time Provider Initiated Documentation: 10/17/19 16:04. HPI Narrative: 48-year-old woman with multiple medical problems including anxiety, chronic abdominal pain, chronic interstitial cystitis, chronic PTSD, depression, GERD, hypertension, hyperlipidemia, migraines, anemia, sleep disorders with significant medication allergies presents to the emergency room for complaints of nausea vomiting and diarrhea which began 2 days ago. Patient reports this is atypical compared to her chronic abdominal pain as she has significant right lower quadrant abdominal pain which persists certainly worse after eating. Patient reports anything she eats or drinks goes right through her. Patient denies blood or mucus in her bowel movements. Patient reports persistent diarrhea, vomiting and dry heaving over the last 2 days intermittently. Patient denies fevers or chills. Patient is concerned is eating his increasing pain is her abdomen however she is able to drink fluids. Patient denies any radiation to her back. Denies urinary urgency, frequency or dysuria. No headache. Mild dizziness present. Nothing relieving her symptoms in the last 2 days. Partner at the bedside has no similar symptoms. Related Data Home Medications Medication Instructions Recorded Confirmed Flovent HFA 2 puff INHALATION BID #1 inh 11/08/17 01/01/19 albuterol sulfate [ProAir HFA] 2 puff INHALATION Q6H PRN #1 11/08/17 01/01/19 inhaler ipratropium-albuterol 3 ml UPD Q6H #30 vial 11/08/17 01/01/19 topiramate 100 mg tablet 100 mg PO BID #180 tab 02/18/18 01/01/19 norethindrone acetate 5 mg tablet 5 mg PO DAILY #90 tab 03/27/18 01/01/19 omeprazole 20 mg capsule,delayed 20 mg PO DAILY #90 cap 07/04/18 01/01/19 release carvedilol 3.125 mg tablet 3.125 mg PO BID #180 tab-cap 07/14/18 01/01/19 spironolactone 25 mg tablet 12.5 mg PO DAILY #45 tab-cap 08/05/18 01/01/19 melatonin 5 mg tablet 5 mg PO HS PRN #30 tab 08/12/18 01/01/19 lisinopril 5 mg tablet 5 mg PO DAILY #90 tab-cap 11/28/18 01/01/19 divalproex 250 mg tablet,delayed 250 mg PO DAILY tab-cap 12/02/18 01/01/19 release duloxetine 30 mg capsule,delayed 40 mg PO DAILY cap 12/02/18 01/01/19 release loratadine 10 mg capsule 10 mg PO DAILY PRN #90 cap 12/02/18 01/01/19 diphenhydramine HCl 25 mg capsule 25 mg PO QHS 12/11/18 01/01/19 lorazepam 1 mg tablet 1 mg PO DAILY PRN 12/11/18 01/01/19 Previous Rx's Medication Instructions Recorded Flovent HFA 2 puff INHALATION BID #1 inh 11/08/17 albuterol sulfate [ProAir HFA] 2 puff INHALATION Q6H PRN #1 11/08/17 inhaler ipratropium-albuterol 3 ml UPD Q6H #30 vial 11/08/17 topiramate 100 mg tablet 100 mg PO BID #180 tab 02/18/18 norethindrone acetate 5 mg tablet 5 mg PO DAILY #90 tab 03/27/18 omeprazole 20 mg capsule,delayed 20 mg PO DAILY #90 cap 07/04/18 release carvedilol 3.125 mg tablet 3.125 mg PO BID #180 tab-cap 07/14/18 spironolactone 25 mg tablet 12.5 mg PO DAILY #45 tab-cap 08/05/18 melatonin 5 mg tablet 5 mg PO HS PRN #30 tab 08/12/18 lisinopril 5 mg tablet 5 mg PO DAILY #90 tab-cap 11/28/18 loratadine 10 mg capsule 10 mg PO DAILY PRN #90 cap 12/02/18 Allergies Allergy/AdvReac Type Severity Reaction Status Date / Time acetaminophen [From Tylenol] Allergy Intermediate Skin Rash Verified 01/01/19 16:12 cyclobenzaprine HCl Allergy Intermediate Skin Rash Verified 01/01/19 16:12 [From Flexeril] ibuprofen Allergy Intermediate PT REPORTS Verified 01/01/19 16:12 THAT IBUPROFEN GIVES HER A RASH. latex Allergy Intermediate Skin Rash Verified 01/01/19 16:12 codeine AdvReac Intermediate Nausea Verified 01/01/19 16:12 gabapentin AdvReac Intermediate Nausea Verified 01/01/19 16:12 naproxen AdvReac Intermediate Rash, Verified 01/01/19 16:12 nausea & vomiting tramadol AdvReac Intermediate Psychosis, Verified 01/01/19 16:12 pt stated I flip out varenicline tartrate AdvReac Intermediate HALLUCINATI Verified 01/01/19 16:12 [From Chantix] ONS pregabalin [From Lyrica] AdvReac Dizziness/Lightheaded, Verified 01/01/19 16:12 weakness, lethargy General Stated Complaint: Nausea/Vomit/Diar JUAN MIGUEL: 3 Review of Systems <ESTELITA Nice - Last Filed: 01/01/19 23:42> Review of Systems ROS Unobtainable: All systems reviewed & are unremarkable except as noted in HPI and below Constitutional Constitutional: Denies chills, Denies fever(s) and Denies headache(s) ENT Ears, Nose, Mouth, and Throat: Denies headache(s) Gastrointestinal Gastrointestinal: Reports abdominal pain, Denies bloating, Reports diarrhea and Reports vomiting Genitourinary Genitourinary: Denies urinary frequency, Denies dysuria and Denies urinary urgency Neurologic Neurologic: Denies headache(s) [facility] <ESTELITA Nice - Last Filed: 01/01/19 23:42> Medical History Alcohol abuse (Chronic) Anxiety (Chronic) Anxiety (Chronic) Bipolar disorder (Chronic) Cardiomyopathy (Chronic 10/16/07) ECHO 10/2007=EF 47% Chronic abdominal pain (Chronic) longstanding. neg pelvic CT, 2012 nl pelvic u/s. Chronic interstitial cystitis (Acute) 2010 Rx @ [facility] [place]. 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 managed by Dr. Hughes. Sleep disorder (Acute) Smoker (Chronic) Tension type headache (Chronic) Urinary, incontinence, stress female (Chronic) Vitamin B12 deficiency (Acute) Surgical History Cholecystectomy (Acute 04/06/16) Cystoscopy (Acute) 06/09/15 H/O shoulder surgery (Chronic) Vaginal hysterectomy (Acute ~2005) Social History Smoking/Tobacco Use Status: Current every day Tobacco Type: cigarettes Smoking packs per day: 0.5 Smoking cigarettes per day: 10.0 Alcohol Intake: never Substance use type: does not use Adopted: No Foster care: Yes Household members: significant other and other Details: 2 Housing: apartment Number of Children: 2 Education Level: other Details: 11 current occupation: Unemployed What type of physical activity do you participate in: walking Frequency: daily Seatbelt use: always Drive intox or ride w/intox laundry route driver: No Working smoke detector in home: Yes Fire extinguisher in home: Yes Carbon monox detector in home: No Do you feel safe at home: Yes Do you feel safe in your relationship?: Yes Exam <ESTELITA Nice - Last Filed: 01/01/19 23:42> Narrative Exam Narrative: CONST: Healthy appearing patient, in no acute distress. Well hydrated. Alert and alert. HENMT: Head nomocephalic, normal to inspection. Atraumatic. Hearing grossly normal. EYES: General normal appearance. Alignment normal. Eyelids normal. Conjunctiva normal. NECK: Normal visual inspection. FROM. Trachea midline. No Midline tenderness. No cervical lymphadenopathy CHEST: Normal insepection of the chest. RESP: Normal respiratory effort. Speaking full sentences. No cough. No audible wheezing. No retractions. Breath sounds are clear and equal bilaterally CARDIO: No JVD. No murmurs or rubs. Abdomen; no peritoneal signs, rebound or guarding. Bowel sounds are present in all 4 quadrants. Patient has moderate pain, wincing pain with palpation in the right lower quadrant. MUSCULOSKELETAL: Normal Gait. FROM of all extremities. SKIN: Normal. Dry. No rashes. NEURO: Alert and awake. Speech clear. PSYCH: Normal affect. Cooperative. Course <ESTELITA Nice - Last Filed: 01/01/19 23:42> Vital Signs Vital signs: Vital Signs Temperature 36.5 C 10/17/19 16:09 Pulse 81 01/01/19 16:09 Respiratory Rate 16 01/01/19 16:09 Blood Pressure 111/70 01/01/19 16:09 Pulse Oximetry 97 01/01/19 16:09 Temperature 36.5 C 01/01/19 16:09 Temperature Source Skin 01/01/19 16:09 Pulse 81 01/01/19 16:09 Respiratory Rate 16 01/01/19 16:09 Respiratory Effort Non-Labored 01/01/19 16:09 Blood Pressure 111/70 01/01/19 16:09 Blood Pressure Position Sitting 01/01/19 16:09 Pulse Oximetry 97 01/01/19 16:09 Pain Level 8 01/01/19 16:09
[2019-01-01] MEDS: Normal Saline 1,000 ML 1000 ML IV (16:56)
[2019-01-01] MEDS: Normal Saline Flush 10 ML SYR IVP (17:05)
[2019-01-01] MEDS: Omnipaque 350 MG/ML 100 ML BTL IJ (17:06)
[2019-01-01 17:07] LABS: Abs Immature Grans 0.09 k/cumm (0.0-0.09); Absolute Basophil Count 0.03 k/cumm (0.0-0.2); Absolute Eosinophil Count 0.45 k/cumm (0.0-0.7); Absolute Lymphocyte Count 1.93 k/cumm (1.2-3.4); Absolute Monocyte Count 0.66 k/cumm (0.11-0.7); Absolute Neutrophil Count 4.57 k/cumm (1.2-6.7); Basophils % 0.4; Eosinophils % 5.8; HCT 51.5 % (36.0-46.0); HGB 17.4 g/dL (12.0-15.5); Immature Grans % 1.2; Mean Corp. HGB Concentration 33.8 g/dL (32.0-36.0); Mean Corpuscular Hemoglobin 31.8 pg (27.0-33.0); Mean Corpuscular Volume 94.1 fL (80-95); Mean Platelet Volume 10.3 fL (8.0-11.0); Monocytes % 8.5; Neutrophils % 59.1; Platelet Count 262 x1000/uL (130-400); RBC 5.47 m/cumm (4.00-5.20); RBC Distribution Width 15.8 % (11.7-14.6); White Blood Cell Count 7.73 k/cumm (4.4-10.8)
--- NOTE | 2019-01-01 17:10 | DI.CT_ITS ---
EXAM: CT ABDOMEN PELVIS W CLINICAL HISTORY: RLQ pain TECHNIQUE: Post IV contrast. No oral contrast. COMPARISON: CT ABDOMEN PELVIS W from 10/10/2018 FINDINGS: The patient is status post cholecystectomy. There is no biliary dilatation or focal liver lesions. Th e spleen, pancreas and adrenals are unremarkable. There are a few tiny nonobstructing stones at the l ower pole of the left kidney. Patient is status post hysterectomy. The bladder is unremarkable. The o varies are within normal limits. The appendix appears normal. There is no bowel dilatation or inflamm atory change. No mass or adenopathy is seen. No bony abnormalities are identified. The aorta is priyanka l in diameter. IMPRESSION: No acute abnormality.
[2019-01-01 17:13] LABS: ALT 16 U/L (14-59); AST 9 U/L (15-37); Albumin 3.2 g/dL (3.4-5.0); Alkaline Phosphatase 65 U/L (46-116); Anion Gap 11.9 mmol/L (3-11); BUN 5 mg/dL (7-18); Bilirubin, Total 0.3 mg/dL (0.2-1.0); CO2 20.1 mmol/L (21.0-32.0); CREATININE 0.91 mg/dL (0.55-1.02); Chloride 108 mmol/L (98-107); Glucose 82 mg/dL (70-100); Lipase 141 U/L (73-393); Potassium 3.7 mmol/L (3.5-5.1); Sodium 140 mmol/L (136-145); Total Protein 7.1 g/dL (6.4-8.2)
--- NOTE | 2019-01-01 17:45 | DI.VRAD_ITS ---
PROCEDURE INFORMATION: Exam: CT Abdomen And Pelvis With Contrast Exam date and time: 01/01/2019 4:33 PM Clinical history: 48 years old, female; Abdominal pain; Localized; Right lower quadrant (rlq) TECHNIQUE: Imaging protocol: Computed tomography of the abdomen and pelvis with intravenous contrast. Contrast material: OMNIPAQUE 350; Contrast volume: 100 ml; Contrast route: LEFT HAND IV; COMPARISON: CT ABDOMEN PELVIS W 10/10/2018 18:11 FINDINGS: Lungs: The lung bases are clear. Liver: Normal. No mass. Gallbladder and bile ducts: Cholecystectomy. Pancreas: Normal. No ductal dilation. Spleen: Normal. No splenomegaly. Adrenals: Normal. No mass. Kidneys and ureters: Punctate nonobstructing left renal calculi. Stomach and bowel: Unremarkable. No obstruction. No mucosal thickening. Appendix: No evidence of appendicitis. Intraperitoneal space: Unremarkable. No free air. No significant fluid collection. Vasculature: Unremarkable. No abdominal aortic aneurysm. Lymph nodes: Unremarkable. No enlarged lymph nodes. Bladder: Unremarkable as visualized. Reproductive: The uterus and ovaries are surgically absent. Bones/joints: Mild degenerative changes of the spine. Soft tissues: Umbilical hernia. Fat distention of the inguinal canals. IMPRESSION: 1. No acute findings. 2. Stable nonobstructing punctate left inferior renal calculi. 3. Cholecystectomy. 4. Surgically absent uterus and ovaries. 5. Unremarkable appendix. Dictated and Authenticated by: Judy Chávez MD. Ordering:GAGAN Perez MD
[2019-01-01 17:56] VITALS: BP 117/67; PULSE 68; RESP 18; TEMP 36.5; O2SAT 97
[2019-01-01] MEDS: Ketorolac 15 MG/ML VIAL IVP (18:02)
[2019-01-01 18:57] LABS: Bilirubin Negative (Negative); Blood Trace-lysed (Negative); Clarity Clear (Clear); Glucose Negative (Negative); Ketones 15 mg/dL (Negative); Leukocyte Esterase Negative (Negative); Nitrite Negative (Negative); Specific Gravity <= 1.005 (1.005-1.025); pH 5.5 (5-8)
[2019-01-01 19:16] LABS: Bacteria Negative HPF (Negative); C & S Indicated? C&S Done As Ordered; Casts Negative LPF (Negative); Crystals Negative HPF (Negative); Epithelial Cells Negative HPF (Negative); Mucus Negative (Negative); Other Cells Negative (Negative); RBC Negative (0-2); WBC Negative HPF (0-5)
[2019-01-01 19:20] VITALS: BP 111/70; PULSE 81; RESP 18; O2SAT 97
== END 2019-01-01 19:20 | disposition home or self-care (01) ==
PROVIDERS: Emergency Provider Physician Assistant; PCP Nurse Practitioner
DX: R10.9 Unspecified abdominal pain (principal); R11.10 Vomiting, unspecified; R19.7 Diarrhea, unspecified; Z90.49 Acquired absence of other specified parts of digestive tract; I10 Essential (primary) hypertension
CPT/HCPCS: 80053; 81025; 83690; 96361; 96374; 99285; 74177; 81003; 81015; 85025; 87086; 99284; J1885; J3490

== ENCOUNTER 2019-04-20 14:03 | Emergency (ER) | payer MEDICAID, SELFPAY ==
[2019-04-20 14:15] VITALS: BP 125/79; PULSE 75; RESP 16; TEMP 36.6; O2SAT 99
--- NOTE | 2019-04-20 14:52 | W.ED.GENAD ---
Discharge Plan Disposition Patient Disposition: HOME Condition: Improving Discharge Details Chief Complaint: Sorethroat Clinical Impression: Sore throat, Alcohol use, Vomiting Primary Care Provider: Lalitha Drummond ED Provider: Yamilet Lucas Home Meds and New Rx's Prescriptions: New ondansetron 4 mg tablet,disintegrating 4 mg PO TID PRN (Reason: nausea and vomiting) Qty: 6 RF: 0 Continued divalproex 250 mg tablet,delayed release (DR/EC) 250 mg PO DAILY RF: 0 loratadine 10 mg capsule 10 mg PO DAILY PRN (Reason: allergy symptoms) Qty: 90 RF: 3 nicotine 21 mg/24 hr patch 24 hour 1 patch TD DAILY Qty: 28 RF: 0 nicotine 14 mg/24 hr patch 24 hour 1 patch TD DAILY Qty: 28 RF: 0 nicotine 7 mg/24 hr patch 24 hour 1 patch TD Q24H Qty: 28 RF: 0 ipratropium-albuterol 3 ML solution for nebulization 3 ml UPD Q6H Qty: 30 RF: 0 albuterol sulfate [ProAir HFA] 8.5 GM HFA aerosol inhaler 2 puff Inhalation Q6H PRN Qty: 1 RF: 4 Flovent HFA 120 PUFF HFA aerosol inhaler 2 puff Inhalation BID Qty: 1 RF: 11 topiramate [Topamax] 100 mg tablet 100 mg PO BID Qty: 180 RF: 4 norethindrone acetate 5 mg tablet 5 mg PO DAILY Qty: 90 RF: 4 omeprazole 20 mg capsule,delayed release(DR/EC) 20 mg PO DAILY Qty: 90 RF: 3 carvedilol [Coreg] 3.125 mg tablet 3.125 mg PO BID Qty: 180 RF: 4 spironolactone 25 mg tablet 12.5 mg PO DAILY Qty: 45 RF: 4 lisinopril 5 mg tablet 5 mg PO DAILY Qty: 90 RF: 4 duloxetine 40 mg capsule,delayed release(DR/EC) 40 mg PO DAILY RF: 0 melatonin 10 mg tablet 10 mg PO HS PRNRF: 0 Discharge Instructions Instructions: Acute Nausea and Vomiting (ED) Additional Instructions: Drink plenty of fluids and get plenty of rest. Avoid excessive alcohol use. Take Tylenol as needed and directed for pain. Follow-up with your primary care doctor in 1 week. Return to the emergency department with any worsening or new concerning symptoms. Discharge Data Discharge Date/Time-TO BE ENTERED AT DEPARTURE: 04/20/19 18:20 Discharge Physician: Yamilet Lucas Medical Decision Making <ESTELITA Nice - Last Filed: 04/22/19 12:21> Is a 49-year-old patient presenting to the emergency room after drinking this weekend. Patient reports several beers over the weekend. Patient reports she has not drank in quite a long time. Patient reports she is concerned as yesterday evening she awoke vomiting at approximately midnight. Patient reports bilious type vomiting overnight Which since improved this morning. Patient complaining of sore throat overnight. Patient does report intermittent abdominal cramping. Also complaining of watery type diarrhea yesterday. Patient denies any fever, chills. She does report mild persistent nausea. Patient concerned that she does feel somewhat dehydrated. Patient denies any chest pain, difficulty breathing or shortness of breath or wheezing. Patient is somewhat concerned as she does have a history of dilated cardiomyopathy and knows that she should not have been drinking however she does report some concerns related to her cardiomyopathy yet denies any symptoms associated with dizziness, chest pain, difficulty breathing or cardiopulmonary complaints. Patient denies any fluid retention in her legs distally. No other concerns or complaints at this time. Patient denies sweating, clamminess at this time. Denies significant concern of withdrawal. Patient's initial vital signs reviewed and are normal. Initial exam of patient's Discussed with patient who would prefer to have labs at this time as well as IV fluids. IV fluid and Zofran provided. Patient does report feeling significantly improved after IV fluids and Zofran however she did have mild return of her nausea, is complaining of mild continued discomfort in her abdomen. Patient continues to be nontoxic appearing. Will trial Phenergan as well as Ativan for symptomatic relief. We did discuss the possibility of CT scan although patient has had several CT scans recently and would prefer minimal radiation. Would prefer to trial additional medication prior to committing to additional CT scanning. Patient does not have peritoneal findings on her abdominal exam nor does she have elevations of white blood cell counts or labs. Patient signed out pending medication trial and reevaluation of abdomen. <Yamilet Lucas DO - Last Filed: 04/21/19 00:08> 1600 --please refer to ESTELITA Tucker's note for initial presentation, exam and plan. 49-year-old female with a history of anxiety, depression, GERD, hypertension, alcohol abuse, cardiomyopathy, PTSD presents with sore throat, vomiting after drinking alcohol over the weekend. Patient states she had several beers on Saturday and Saturday but no alcohol yesterday. Patient states she has been vomiting mainly clear or bile since then, last episode this morning. She does also admit to a few episodes of watery brown diarrhea. She denies any fever, chest pain, shortness of breath, abdominal pain or back pain. Case endorsed to follow-up on labs and patient response to medication. She was given Zofran, Phenergan, Ativan and fluids. 1800 --labs reviewed and unremarkable. Patient is requesting to go home. She is hemodynamically stable. She has no signs of alcohol withdrawal. She denies any complaints of sore throat, abdominal pain. Abdomen exam nontender. Prescription for Zofran given in addition to tabs to go. Advised to follow up with the primary care doctor for re-evaluation. Usual and customary return precautions given prior to discharge. Medical Records Medical records reviewed: Yes I reviewed the patient's medical records. Lab Data Lab results reviewed: Yes I reviewed the patient's lab results. Labs: 04/20/19 14:30 Pharynx Streptococcus Screen ([facility]) - Pending Laboratory Tests Range/Units 04/20/19 04/20/19 04/20/19 15:00 15:00 15:00 WBC (4.4-10.8) k/cumm 8.16 RBC (4.00-5.20) m/cumm 5.05 Hgb (12.0-15.5) g/dL 16.0 H Hct (36.0-46.0) % 48.7 H MCV (80-95) fL 96.4 H MCH (27.0-33.0) pg 31.7 MCHC (32.0-36.0) g/dL 32.9 RDW (11.7-14.6) % 14.8 H Plt Count (130-400) x1000/uL 227 MPV (8.0-11.0) fL 10.1 Immature Gran % % 0.4 Neutrophils % 61.0 Lymphocytes % 24.4 Monocytes % 7.7 Eosinophils % 6.0 Basophils % 0.5 Absolute Neutrophils (1.2-6.7) k/cumm 4.98 Absolute Lymphocytes (1.2-3.4) k/cumm 1.99 Absolute Monocytes (0.11-0.7) k/cumm 0.63 Absolute Eosinophils (0.0-0.7) k/cumm 0.49 Absolute Basophils (0.0-0.2) k/cumm 0.04 Sodium (136-145) mmol/L 140 Potassium (3.5-5.1) mmol/L 3.8 Chloride (98-107) mmol/L 107 Carbon Dioxide (21.0-32.0) mmol/L 22.7 Anion Gap (3-11) mmol/L 10.3 BUN (7-18) mg/dL 6 L Creatinine (0.55-1.02) mg/dL 0.86 Estimated GFR/1.73 m2 (mL/min/1.73m2) >= 60.00 Glucose (74-106) mg/dL 100 Calcium (8.5-10.1) mg/dL 7.9 L Magnesium (1.8-2.4) mg/dL 1.9 Total Bilirubin (0.2-1.0) mg/dL 0.5 AST (15-37) U/L 14 L ALT (14-59) U/L 15 Alkaline Phosphatase (46-116) U/L 60 Total Protein (6.4-8.2) g/dL 6.6 Albumin (3.4-5.0) g/dL 3.0 L Lipase (73-393) U/L 118 Urine Color (Yellow) Urine Clarity (Clear) Urine pH (5-8) Ur Specific [place] (1.005-1.025) Urine Protein (Negative) mg/dL Urine Ketones (Negative) mg/dL Urine Blood (Negative) Urine Nitrite (Negative) Urine Bilirubin (Negative) Urine Urobilinogen (Up TO 0.2) EU/dL Ur Leukocyte Esterase (Negative) Urine RBC (0-2) HPF Urine WBC (0-5) HPF Ur Epithelial Cells (Negative) HPF Urine Crystals (Negative) HPF Urine Bacteria (Negative) HPF Urine Casts (Negative) LPF Urine Mucus (Negative) Urine Other (Negative) Ur Culture Indicated? Urine Glucose (Negative) mg/dL Ethyl Alcohol (<3) mg/dL < 3.0 Range/Units 04/20/19 15:45 WBC (4.4-10.8) k/cumm RBC (4.00-5.20) m/cumm Hgb (12.0-15.5) g/dL Hct (36.0-46.0) % MCV (80-95) fL MCH (27.0-33.0) pg MCHC (32.0-36.0) g/dL RDW (11.7-14.6) % Plt Count (130-400) x1000/uL MPV (8.0-11.0) fL Immature Gran % % Neutrophils % Lymphocytes % Monocytes % Eosinophils % Basophils % Absolute Neutrophils (1.2-6.7) k/cumm Absolute Lymphocytes (1.2-3.4) k/cumm Absolute Monocytes (0.11-0.7) k/cumm Absolute Eosinophils (0.0-0.7) k/cumm Absolute Basophils (0.0-0.2) k/cumm Sodium (136-145) mmol/L Potassium (3.5-5.1) mmol/L Chloride (98-107) mmol/L Carbon Dioxide (21.0-32.0) mmol/L Anion Gap (3-11) mmol/L BUN (7-18) mg/dL Creatinine (0.55-1.02) mg/dL Estimated GFR/1.73 m2 (mL/min/1.73m2) Glucose (74-106) mg/dL Calcium (8.5-10.1) mg/dL Magnesium (1.8-2.4) mg/dL Total Bilirubin (0.2-1.0) mg/dL AST (15-37) U/L ALT (14-59) U/L Alkaline Phosphatase (46-116) U/L Total Protein (6.4-8.2) g/dL Albumin (3.4-5.0) g/dL Lipase (73-393) U/L Urine Color (Yellow) Yellow Urine Clarity (Clear) Clear Urine pH (5-8) 7.5 Ur Specific [place] (1.005-1.025) 1.015 Urine Protein (Negative) mg/dL Negative Urine Ketones (Negative) mg/dL Negative Urine Blood (Negative) Trace-lysed H Urine Nitrite (Negative) Negative Urine Bilirubin (Negative) Negative Urine Urobilinogen (Up TO 0.2) EU/dL 0.2 Ur Leukocyte Esterase (Negative) Negative Urine RBC (0-2) HPF 0-2 Urine WBC (0-5) HPF 0-2 Ur Epithelial Cells (Negative) HPF Few Urine Crystals (Negative) HPF Negative Urine Bacteria (Negative) HPF Negative Urine Casts (Negative) LPF Negative Urine Mucus (Negative) Negative Urine Other (Negative) Rare transitional Ur Culture Indicated? No Urine Glucose (Negative) mg/dL Negative Ethyl Alcohol (<3) mg/dL HPI <ESTELITA Nice - Last Filed: 04/22/19 12:21> General Date/Time Provider Initiated Documentation: 04/20/19 14:33. HPI Narrative: 49-year-old patient presenting to the emergency room today for multiple complaints. Patient specifically is complaining of feeling malaised, nauseous and tremulous. Patient reports she has been with staining from alcohol but did use alcohol x2 days over the weekend with a girlfriend. Patient reports she awoke at approximately midnight last night began vomiting. Reports vomiting a few times overnight. Patient reports mild dizziness this morning which has since improved. Patient denies any chest pain with difficulty getting shortness of breath or wheezing. Patient denies headache. Patient does report mild abdominal pain and persistent cramping in her abdomen. Patient does report mild diarrhea for the last few days. Patient is also complaining of a sore throat which developed this morning. Denies voice change or trismus. Does report mild nasal congestion. No associated cough. Patient questions of sore throat is associated with drinking or vomiting. Related Data Home Medications Medication Instructions Recorded Confirmed Flovent HFA 2 puff INHALATION BID #1 inh 11/08/17 04/20/19 albuterol sulfate [ProAir HFA] 2 puff INHALATION Q6H PRN #1 11/08/17 04/20/19 inhaler ipratropium-albuterol 3 ml UPD Q6H #30 vial 11/08/17 04/20/19 topiramate 100 mg tablet 100 mg PO BID #180 tab 02/18/18 04/20/19 norethindrone acetate 5 mg tablet 5 mg PO DAILY #90 tab 03/27/18 04/20/19 omeprazole 20 mg capsule,delayed 20 mg PO DAILY #90 cap 07/04/18 04/20/19 release carvedilol 3.125 mg tablet 3.125 mg PO BID #180 tab-cap 07/14/18 04/20/19 spironolactone 25 mg tablet 12.5 mg PO DAILY #45 tab-cap 08/05/18 04/20/19 lisinopril 5 mg tablet 5 mg PO DAILY #90 tab-cap 11/28/18 04/20/19 divalproex 250 mg tablet,delayed 250 mg PO DAILY tab-cap 12/02/18 04/20/19 release loratadine 10 mg capsule 10 mg PO DAILY PRN #90 cap 12/02/18 04/20/19 nicotine 14 mg/24 hr daily 1 patch TD DAILY #28 each 01/27/19 04/20/19 transdermal patch nicotine 21 mg/24 hr daily 1 patch TD DAILY #28 each 01/27/19 04/20/19 transdermal patch nicotine 7 mg/24 hr daily 1 patch TD Q24H #28 each 01/27/19 04/20/19 transdermal patch duloxetine 40 mg capsule,delayed 40 mg PO DAILY 01/28/19 04/20/19 release melatonin 10 mg tablet 10 mg PO HS PRN 01/28/19 04/20/19 ondansetron 4 mg PO TID PRN #6 tab 04/20/19 Previous Rx's Medication Instructions Recorded Flovent HFA 2 puff INHALATION BID #1 inh 11/08/17 albuterol sulfate [ProAir HFA] 2 puff INHALATION Q6H PRN #1 11/08/17 inhaler ipratropium-albuterol 3 ml UPD Q6H #30 vial 11/08/17 topiramate 100 mg tablet 100 mg PO BID #180 tab 02/18/18 norethindrone acetate 5 mg tablet 5 mg PO DAILY #90 tab 03/27/18 omeprazole 20 mg capsule,delayed 20 mg PO DAILY #90 cap 07/04/18 release carvedilol 3.125 mg tablet 3.125 mg PO BID #180 tab-cap 07/14/18 spironolactone 25 mg tablet 12.5 mg PO DAILY #45 tab-cap 08/05/18 lisinopril 5 mg tablet 5 mg PO DAILY #90 tab-cap 11/28/18 loratadine 10 mg capsule 10 mg PO DAILY PRN #90 cap 12/02/18 nicotine 14 mg/24 hr daily 1 patch TD DAILY #28 each 01/27/19 transdermal patch nicotine 21 mg/24 hr daily 1 patch TD DAILY #28 each 01/27/19 transdermal patch nicotine 7 mg/24 hr daily 1 patch TD Q24H #28 each 01/27/19 transdermal patch ondansetron 4 mg PO TID PRN #6 tab 04/20/19 Allergies Allergy/AdvReac Type Severity Reaction Status Date / Time acetaminophen [From Tylenol] Allergy Intermediate Skin Rash Verified 04/20/19 14:22 cyclobenzaprine HCl Allergy Intermediate Skin Rash Verified 04/20/19 14:22 [From Flexeril] ibuprofen Allergy Intermediate PT REPORTS Verified 04/20/19 14:22 THAT IBUPROFEN GIVES HER A RASH. latex Allergy Intermediate Skin Rash Verified 04/20/19 14:22 codeine AdvReac Intermediate Nausea Verified 04/20/19 14:22 gabapentin AdvReac Intermediate Nausea Verified 04/20/19 14:22 naproxen AdvReac Intermediate Rash, Verified 04/20/19 14:22 nausea & vomiting tramadol AdvReac Intermediate Psychosis, Verified 04/20/19 14:22 pt stated I flip out varenicline tartrate AdvReac Intermediate HALLUCINATI Verified 04/20/19 14:22 [From Chantix] ONS lorazepam AdvReac not Verified 04/20/19 14:22 effective pregabalin [From Lyrica] AdvReac Dizziness/Lightheaded, Verified 04/20/19 14:22 weakness, lethargy General Stated Complaint: Sorethroat JUAN MIGUEL: 4 Review of Systems <ESTELITA Nice - Last Filed: 04/22/19 12:21> All systems reviewed & are unremarkable except as noted in HPI and below Constitutional Constitutional: Reports chills, Denies fever(s), Denies headache(s) and Reports malaise ENT Ears, Nose, Mouth, and Throat: Denies headache(s), Reports nasal congestion, Denies nasal obstruction, Denies sinus pressure and Reports sore throat Cardiovascular Cardiovascular: Denies chest pain, Denies chest pain at rest, Denies diaphoresis, Denies syncope, Denies palpitations, Denies dyspnea and Denies dyspnea on exertion Respiratory Respiratory: Denies cough, Denies dyspnea, Denies dyspnea on exertion and Denies wheezing Gastrointestinal Gastrointestinal: Reports abdominal pain, Reports cramping, Reports diarrhea, Reports nausea and Reports vomiting Genitourinary Genitourinary: Denies dysuria and Denies flank pain Neurologic Neurologic: Denies syncope and Denies headache(s) Endocrine Endocrine: Denies palpitations Allergic/Immunologic Allergic/Immunologic: Denies wheezing PFSH <ESTELITA Nice - Last Filed: 04/22/19 12:21> Medical History Alcohol abuse (Chronic) Anxiety (Chronic) Anxiety (Chronic) Bipolar disorder (Chronic) Cardiomyopathy (Chronic 10/16/07) ECHO 10/2007=EF 47% Chronic abdominal pain (Chronic) longstanding. neg pelvic CT, 2013 nl pelvic u/s. Chronic interstitial cystitis (Acute) 2010 Rx @ [facility] [place] with inj. 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 managed by Dr. Hughes. Sleep disorder (Acute) Smoker (Chronic) Tension type headache (Chronic) Urinary, incontinence, stress female (Chronic) Vitamin B12 deficiency (Acute) Surgical History (Updated 01/28/19 @ 16:25 by Liza Mcmahan RN) Cholecystectomy (Acute 04/06/16) Cystoscopy (Acute) 06/09/15 H/O shoulder surgery (Chronic) History of esophagogastroduodenoscopy (Inactive) Vaginal hysterectomy (Acute ~2005) Social History Smoking/Tobacco Use Status: Current every day Tobacco Type: cigarettes Smoking packs per day: 0.5 Smoking cigarettes per day: 10.0 Alcohol Intake: never Substance use type: does not use Adopted: No Foster care: Yes Household members: significant other and other Details: 2 Housing: apartment Number of Children: 2 Education Level: other Details: 11th current occupation: Unemployed What type of physical activity do you participate in: walking Frequency: daily Seatbelt use: always Drive intox or ride w/[employer] driver: No Working smoke detector in home: Yes Fire extinguisher in home: Yes Carbon monox detector in home: No Do you feel safe at home: Yes Do you feel safe in your relationship?: Yes Exam <ESTELITA Nice - Last Filed: 04/22/19 12:21> Narrative Exam Narrative: CONST: Healthy appearing patient, in no acute distress. Alert and oriented. HENMT: Head nomocephalic, normal to inspection. Atraumatic. Hearing grossly normal. TMs appear normal bilaterally, mild pharyngeal erythema. No exudates. No tonsillar swelling. No uvula swelling. EYES: General normal appearance. Alignment normal. Eyelids normal. Conjunctiva normal. NECK: Normal visual inspection. FROM. Trachea midline. No Midline tenderness. No cervical lymphadenopathy CHEST: Normal insepection of the chest. RESP: Normal respiratory effort. Speaking full sentences. No cough. No audible wheezing. No retractions. Breath sounds clear, full and equal bilaterally, no wheezing, rhonchi or rales. CARDIO: No JVD. No murmur. Regular rate and rhythm GI: Bowel sounds present in all 4 quadrants. Abdomen is soft. Mild epigastric, right upper quadrant and left lower quadrant tenderness with palpation. No peritoneal signs, rebound or guarding Course <ESTELITA Nice - Last Filed: 04/22/19 12:21> Vital Signs Vital signs: Vital Signs Temperature 36.6 C 04/20/19 14:15 Pulse 75 04/20/19 14:15 Respiratory Rate 16 04/20/19 14:15 Blood Pressure 125/79 04/20/19 14:15 Pulse Oximetry 99 04/20/19 14:15 Temperature 36.6 C 04/20/19 14:15 Temperature Source Skin 04/20/19 14:15 Pulse 75 04/20/19 14:15 Respiratory Rate 16 04/20/19 14:15 Respiratory Effort Non-Labored 04/20/19 14:15 Blood Pressure 125/79 04/20/19 14:15 Blood Pressure Position Sitting 04/20/19 14:15 Pulse Oximetry 99 04/20/19 14:15 Oxygen Delivery Method Room Air 04/20/19 14:15 Oxygen Flow Rate 0 04/20/19 14:15 Pain Level 8 04/20/19 14:15 Lab/Test Results Lab/Test Results: 04/20/19 14:30 Pharynx Streptococcus Screen ([facility]) - Pending POC Strep Test-AUTUMN(Rapid) Start: 04/20/19 14:34 Freq: .Rapid Strep Test Status: Active Protocol: Document 04/20/19 14:41 MMQ (Rec: 04/20/19 14:41 MMQ [id number]) Strep test-AUTUMN(Rapid)-POC POC-Strep test-AUTUMN (Rapid) Negative POC-Strep test-AUTUMN (Rapid) Negative Sign Out <ESTELITA Nice - Last Filed: 04/22/19 12:21> Sign Out Data: Sign Out Comment: Pending reevaluation after Phenergan and Ativan, IV fluid. If unimproved consider CT Last updated by Ana Vizcarra PA at 04/20/19 16:11
[2019-04-20] MEDS: Normal Saline Flush 10 ML SYR IVP (15:00)
[2019-04-20 15:09] LABS: Abs Immature Grans 0.03 k/cumm (0.0-0.09); Absolute Basophil Count 0.04 k/cumm (0.0-0.2); Absolute Eosinophil Count 0.49 k/cumm (0.0-0.7); Absolute Lymphocyte Count 1.99 k/cumm (1.2-3.4); Absolute Monocyte Count 0.63 k/cumm (0.11-0.7); Absolute Neutrophil Count 4.98 k/cumm (1.2-6.7); Basophils % 0.5; HCT 48.7 % (36.0-46.0); Immature Grans % 0.4 %; Lymphocytes % 24.4; Mean Corp. HGB Concentration 32.9 g/dL (32.0-36.0); Mean Corpuscular Hemoglobin 31.7 pg (27.0-33.0); Mean Corpuscular Volume 96.4 fL (80-95); Mean Platelet Volume 10.1 fL (8.0-11.0); Monocytes % 7.7; Platelet Count 227 x1000/uL (130-400); RBC 5.05 m/cumm (4.00-5.20); RBC Distribution Width 14.8 % (11.7-14.6); White Blood Cell Count 8.16 k/cumm (4.4-10.8)
[2019-04-20] MEDS: Ondansetron 4 MG/2 ML VIAL IVP (15:15)
[2019-04-20] MEDS: Normal Saline 1,000 ML 1000 ML IV (15:15)
[2019-04-20 15:21] LABS: Magnesium 1.9 mg/dL (1.8-2.4)
[2019-04-20 15:24] LABS: ALT 15 U/L (14-59); AST 14 U/L (15-37); Alkaline Phosphatase 60 U/L (46-116); Anion Gap 10.3 mmol/L (3-11); BUN 6 mg/dL (7-18); Bilirubin, Total 0.5 mg/dL (0.2-1.0); CO2 22.7 mmol/L (21.0-32.0); CREATININE 0.86 mg/dL (0.55-1.02); Calcium 7.9 mg/dL (8.5-10.1); Chloride 107 mmol/L (98-107); Glucose 100 mg/dL (74-106); Lipase 118 U/L (73-393); Potassium 3.8 mmol/L (3.5-5.1); Sodium 140 mmol/L (136-145); Total Protein 6.6 g/dL (6.4-8.2)
[2019-04-20 15:39] LABS: ETHANOL BLOOD < 3.0 mg/dL (<3)
[2019-04-20 15:58] LABS: Bilirubin Negative (Negative); Blood Trace-lysed (Negative); Clarity Clear (Clear); Glucose Negative (Negative); Ketones Negative (Negative); Leukocyte Esterase Negative (Negative); Nitrite Negative (Negative); Specific Gravity 1.015 (1.005-1.025); Urobilinogen 0.2 EU/dL (Up TO 0.2); pH 7.5 (5-8)
[2019-04-20 16:15] LABS: WBC 0-2 HPF (0-5)
[2019-04-20 16:16] LABS: Bacteria Negative HPF (Negative); C & S Indicated? No; Casts Negative LPF (Negative); Crystals Negative HPF (Negative); Epithelial Cells Few HPF (Negative); Mucus Negative (Negative); Other Cells Rare Transitional (Negative); RBC 0-2 HPF (0-2)
[2019-04-20] MEDS: LORazepam 2 MG/ML VIAL 0.5 MG IVP (16:30)
[2019-04-20 18:15] VITALS: BP 132/86; PULSE 68; RESP 16; TEMP 37.6; O2SAT 97
== END 2019-04-20 18:20 | disposition home or self-care (01) ==
PROVIDERS: Physician Assistant; Emergency Provider Physician Assistant; PCP Nurse Practitioner
DX: J02.9 Acute pharyngitis, unspecified (principal); R11.2 Nausea with vomiting, unspecified; F10.10 Alcohol abuse, uncomplicated; R19.7 Diarrhea, unspecified; I10 Essential (primary) hypertension; F17.210 Nicotine dependence, cigarettes, uncomplicated
CPT/HCPCS: 36415; 80053; 83690; 87880; 96361; 96365; 96375; 99284; 80320; 81003; 81015; 83735; 85025; 87081; J2060; J2405

== ENCOUNTER 2019-04-27 13:34 | Emergency (ER) | payer MEDICAID, SELFPAY ==
[2019-04-27 13:43] VITALS: BP 119/76; PULSE 78; RESP 22; TEMP 36.6; O2SAT 98
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
== END 2019-04-27 14:02 | disposition home or self-care (01) ==
PROVIDERS: Emergency Provider Emergency Medicine; PCP Nurse Practitioner
DX: J44.0 Chronic obstructive pulmonary disease with (acute) lower respiratory infection (principal); J20.9 Acute bronchitis, unspecified; F17.210 Nicotine dependence, cigarettes, uncomplicated; I10 Essential (primary) hypertension
CPT/HCPCS: 99283

== ENCOUNTER 2019-04-27 23:23 | Emergency (ER) | payer MEDICAID, SELFPAY ==
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
[2019-04-27 23:30] VITALS: BP 136/80; PULSE 94; RESP 18; TEMP 36.7; O2SAT 96
== END 2019-04-28 00:30 | disposition home or self-care (01) ==
LOC: ER 04-28 00:34
PROVIDERS: Emergency Provider Emergency Medicine; PCP Nurse Practitioner
DX: S60.812A Abrasion of left wrist, initial encounter (principal); R07.81 Pleurodynia; F10.120 Alcohol abuse with intoxication, uncomplicated; Y04.2XXA Assault by strike against or bumped into by another person, initial encounter; Y07.03 Male partner, perpetrator of maltreatment and neglect; Z53.29 Procedure and treatment not carried out because of patient's decision for other reasons; I10 Essential (primary) hypertension
CPT/HCPCS: 99285; 99284

== ENCOUNTER 2020-09-11 14:32 | Emergency (ER) | payer MEDICAID, SELFPAY ==
[2020-09-11] VITALS (14 sets, daily range): BP systolic 103–148; BP diastolic 54–128; PULSE 64–75; RESP 18–35; TEMP 36.4; O2SAT 96–97
--- NOTE | 2020-09-11 14:30 | RT.EKG_ITS ---
APPROVED REPORT Exam: Resting ECG Reason for Exam: dizzy Patient Location: E HR:70 bpm ECG Measurements Heart Rate 70 AXIS AZ 155 P 12 QRSd 104 QRS 65 QT 410 T 100 QTc 442 Conclusion Sinus rhythm...normal P axis, V-rate 60- 99 Abnormal T, consider ischemia, lateral leads...T <-0.20mV, I aVL V5 V6. Sinus. T wave inversion in anterolateral leads seen in previous ekg. No STEMI. I have reviewed and interpreted ECG and agree with software generated interpretation.
--- NOTE | 2020-09-11 15:15 | DI.CT_ITS ---
Exam(s) CT HEAD WO EXAM: CT HEAD WO CLINICAL HISTORY: dizzy. TECHNIQUE: Imaging Protocol: Axial computed tomography images with coronal and sagittal reformatted images were created and reviewed COMPARISON: CT HEAD AND CSPINE W/O CONTRAST from 04/13/2017 FINDINGS: There are no skull fractures nor fluid in the visualized paranasal sinuses. There is no evidence of intracranial hemorrhage, mass effect, or shift of midline structures. There are no extra-axial fluid collections. The ventricles are not enlarged or shifted and there is no blo od within the ventricular system nor within the basal cisterns. IMPRESSION: No acute intracranial findings on this noninfused CT scan of the brain. RADIATION DOSE DELIVERED: 803.26mGy.cm Total DLP DATA REPOSITORY: All CT scans at this facility are submitted to the National Radiology Data Registry (NRDR) Dose Index Registry (DIR) with the [employer] (A[employer]). RADIATION OPTIMIZATION: All CT scans at this facility use at least one of these dose optimization te chniques: automated exposure control; mA and/or kV adjustment per patient size (includes targeted exa ms where dose is matched to clinical indication); or iterative reconstruction.
--- NOTE | 2020-09-11 15:15 | DI.RAD_ITS ---
Exam(s) XR CHEST 2V PA LATERAL EXAM: XR CHEST 2V PA LATERAL CLINICAL HISTORY: chest pain. TECHNIQUE: 2D digital imaging was performed. COMPARISON: CR CHEST 2 VIEWS PA,LAT from 10/06/2017 FINDINGS: Heart size is upper normal. The mediastinum is not widened. There are no infiltrates nor pleural effusions. No pneumothorax. No pulmonary edema IMPRESSION: No acute pulmonary findings. DATA REPOSITORY: RADIATION DOSE DELIVERED:
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
[2020-09-11] MEDS: Meclizine 25 MG TAB PO (15:40)
[2020-09-11] MEDS: Aspirin 81 MG CHEW 324 MG CH (15:40)
[2020-09-11] MEDS: Normal Saline 1,000 ML 125 ML IV (15:51)
[2020-09-11 16:14] LABS: Abs Immature Grans 0.03 10^3/uL (0.0-0.06); Absolute Basophil Count 0.02 10^3/uL (0.0-0.2); Absolute Eosinophil Count 0.19 10^3/uL (0.0-0.7); Absolute Lymphocyte Count 0.83 10^3/uL (1.2-3.4); Absolute Monocyte Count 0.39 10^3/uL (0.1-0.8); Absolute Neutrophil Count 2.35 10^3/uL (1.2-6.7); Basophils % 0.5; HCT 44.2 % (36.0-46.0); HGB 14.6 g/dL (11.2-15.7); Immature Grans % 0.8; Lymphocytes % 21.8; MCH 31.5 pg (27.0-33.0); MCV 95.3 fL (80-95); MPV 9.8 fL (8.0-11.0); Monocytes % 10.2; Neutrophils % 61.7; Nucleated RBC 0 %; Platelet Count 226 10^3/uL (130-400); RBC 4.64 10^6/uL (3.93-5.22); RDW 12.8 % (11.7-14.6); RDW-SD 45.2 fL; WBC 3.81 10^3/uL (4.4-10.8)
[2020-09-11 16:33] LABS: ALT 37 U/L (14-59); AST 28 U/L (15-37); Albumin 3.2 g/dL (3.4-5.0); Alkaline Phosphatase 66 U/L (46-116); Anion Gap 10.4 mmol/L (3-11); BUN 5 mg/dL (7-18); Bilirubin, Total 0.5 mg/dL (0.2-1.0); CO2 25.6 mmol/L (21.0-32.0); CREATININE 0.7 mg/dL (0.55-1.02); Calcium 8.6 mg/dL (8.5-10.1); Chloride 107 mmol/L (98-107); Glucose 89 mg/dL (74-106); Magnesium 1.9 mg/dL (1.8-2.4); NT-proBNP 45 pg/mL (<300); PTT Activated 22.1 sec (21.0-27.5); Potassium 3.7 mmol/L (3.5-5.1); Prothrombin Time 10.4 sec (9.3-11.0); Sodium 143 mmol/L (136-145); Total Protein 7.3 g/dL (6.4-8.2)
[2020-09-11 16:35] LABS: Troponin I < 0.05 ng/mL (<0.06)
--- NOTE | 2020-09-11 16:53 | DI.VRAD_ITS ---
PROCEDURE INFORMATION: Exam: CT Head Without Contrast Exam date and time: 09/11/2020 3:19 PM Age: 50 years old Clinical indication: Dizziness TECHNIQUE: Imaging protocol: Computed tomography of the head without contrast. COMPARISON: CT HEAD AND CSPINE W/O CONTRAST 04/13/2017 3:52 AM FINDINGS: Brain: Normal. No hemorrhage. Unremarkable white matter. No mass effect. Cerebral ventricles: No ventriculomegaly. Paranasal sinuses: Visualized sinuses are unremarkable. No fluid levels. Mastoid air cells: Visualized mastoid air cells are well aerated. Bones/joints: Unremarkable. No acute fracture. Soft tissues: Unremarkable. IMPRESSION: No evidence for acute intracranial abnormality. Dictated and Authenticated by: Sonya Rider MD. Ordering:JESSICA Grossman MD
--- NOTE | 2020-09-11 16:55 | DI.VRAD_ITS ---
PROCEDURE INFORMATION: Exam: XR Chest Exam date and time: 09/11/2020 3:19 PM Age: 50 years old Clinical indication: Other: Chest pain TECHNIQUE: Imaging protocol: XR of the chest. Views: 2 views. COMPARISON: CR CHEST 2 VIEWS PA,LAT 10/06/2017 5:14 PM FINDINGS: Lungs: There appear to be some very minimal increased markings at the right lung base, probable atelectasis. No definite consolidation. Pleural spaces: Unremarkable. No pleural effusion. No pneumothorax. Heart/Mediastinum: Unremarkable. No cardiomegaly. Bones/joints: Unremarkable. IMPRESSION: Probable right lower lobe atelectasis. No evidence for pneumonia. Dictated and Authenticated by: Sonya Rider MD. Ordering:JESSICA Grossman MD
[2020-09-11 17:00] LABS: Bilirubin Negative (Negative); Blood Trace-intact (Negative); Clarity Clear (Clear); Glucose >=1000 mg/dL (Negative); Ketones 15 mg/dL (Negative); Leukocyte Esterase Negative (Negative); Nitrite Negative (Negative); pH 6.5 (5-8)
[2020-09-11 17:08] LABS: D-Dimer 973 ng/mlFEU (<500)
[2020-09-11 17:12] LABS: Bacteria Negative HPF (Negative); C & S Indicated? No; Casts Negative LPF (Negative); Crystals Negative HPF (Negative); Epithelial Cells Negative HPF (Negative); Mucus Negative (Negative); Other Cells Negative (Negative)
--- NOTE | 2020-09-11 17:30 | DI.CT_ITS ---
Exam(s) CT CHEST PE CTA EXAM: CT CHEST PE CTA CLINICAL HISTORY: Left sided chest pain. TECHNIQUE: Imaging Protocol: CT angiography of the chest was performed using pulmonary embolus lexie col. Multi planar reconstructions were performed. CONTRAST MATERIAL: Intravenous: Omnipaque 350 Contrast volume: 75 cc COMPARISON: CT CT ABDOMEN PELVIS W from 01/01/2019 FINDINGS: CHEST: PULMONARY ARTERIES: There are no intraluminal filling defects to suggest acute pulmonary emboli. LUNGS: There are no infiltrates nor evidence of pulmonary infarction.. There are no pleural effusions . MEDIASTINUM: There is no hilar nor mediastinal adenopathy. Visualized thyroid unremarkable. CARDIAC: Heart size is upper normal. There is no pericardial effusion.Caliber of the thoracic aorta is within normal limits. There is no evidence of aortic dissection. There is no significant shift of the interventricular septum. PARTIALLY VISUALIZED UPPERMOST ABDOMEN: Gallbladder surgically absent. Hepatic steatosis. OSSEOUS: No significant osseous lesions.. IMPRESSION: 1. No evidence of acute pulmonary emboli. No evidence of pulmonary infarction. 2. No pulmonary infiltrates and no pleural effusions 3. No intrathoracic adenopathy RADIATION DOSE DELIVERED: 545.7 mGy.cm Total DLP DATA REPOSITORY: All CT scans at this facility are submitted to the National Radiology Data Registry (NRDR) Dose Index Registry (DIR) with the [employer] (ACR). RADIATION OPTIMIZATION: All CT scans at this facility use at least one of these dose optimization te chniques: automated exposure control; mA and/or kV adjustment per patient size (includes targeted exa ms where dose is matched to clinical indication); or iterative reconstruction.
[2020-09-11] MEDS: nitroGLYcerin 0.4 MG TAB SL ×2 (17:51→18:06)
--- NOTE | 2020-09-11 19:15 | NUR.NOTE ---
Assumed care of pt, report from Margarita. Pt had been to CT, right AC line infiltrated. Hot pack in place. IV removed. #20 diffusics to LAC, repeat trop drawn. Pt reprots chest pain down to 3/10. Denies dizziness.
[2020-09-11 19:43] LABS: Troponin I < 0.05 ng/mL (<0.06)
[2020-09-11] MEDS: Omnipaque 350 MG/ML 100 ML BTL IJ (20:24)
== END 2020-09-11 22:10 | disposition still patient (30) ==
PROVIDERS: Physician Assistant; Emergency Provider Registered Nurse Emergency
DX: R42 Dizziness and giddiness (principal); M25.512 Pain in left shoulder; R61 Generalized hyperhidrosis
CPT/HCPCS: 36415; 71275; 80053; 93005; 99285; 70450; 71046; 81003; 81015; 83735; 83880; 84443; 84484; 85025; 85379; 85610; 85730; 93010; 99283; J3490

== ENCOUNTER 2020-11-16 12:25 | Inpatient (IN) | payer MEDICAID, SELFPAY ==
--- NOTE | 2020-11-16 12:15 | RT.EKG_ITS ---
APPROVED REPORT Exam: Resting ECG Reason for Exam: dizzy Patient Location: E HR:91 bpm ECG Measurements Heart Rate 91 AXIS MA 153 P 44 QRSd 107 QRS 82 QT 380 T 23 QTc 468 Conclusion Sinus rhythm...normal P axis, V-rate 60- 99
[2020-11-16 12:35] VITALS: BP 125/81; PULSE 95; RESP 32; TEMP 36.5; O2SAT 98
[2020-11-16 12:42] VITALS: RESP 32
--- NOTE | 2020-11-16 12:45 | DI.CT_ITS ---
Exam(s) CT ABDOMEN PELVIS W EXAM: CT ABDOMEN PELVIS W CLINICAL HISTORY: Abd pain, hx hysterectomy TECHNIQUE: Imaging Protocol: Axial computed tomography images with coronal and sagittal reformatted images were created and reviewed CONTRAST MATERIAL: Intravenous: Omnipaque 350 Contrast volume:100 mL Oral: No COMPARISON: CT CT CHEST PE CTA from 09/11/2020 FINDINGS: ABDOMEN: Lung Bases: Normal where visualized. Liver: Normal density. No measurable mass. Portal, Superior Mesenteric, and Splenic Veins: Unremarkable. Gallbladder and Biliary Tract: Status post cholecystectomy no biliary ductal dilatation. Pancreas: Normal density, no abnormal calcifications or inflammatory process. Spleen: Normal. Adrenals: No masses seen. Kidneys: Normal size, contour and axis. Nonobstructing left renal stones. No masses seen. Abdominal Aorta: Abdominal portion non-dilated. Bowel: No obstruction or bowel wall thickening. No appendicitis. Peritoneal Cavity: No ascites, collection or mesenteric inflammatory response. No free air. Lymph Nodes: Within normal limits. Bones: Within normal limits for the patient's age. Soft Tissues: Unremarkable. PELVIS: Bladder: The bladder is incompletely distended limiting evaluation. Reproductive Organs: The patient is status post hysterectomy. There does appear to be high density m aterial in the vaginal cuff of indeterminate significance. This may represent hemorrhage. No extral uminal extension is noted. Lymph Nodes: Within normal limits. Bones: Within normal limits for the patient's age. IMPRESSION: 1. Status post hysterectomy. High-density material is seen within the vaginal cuff. This may repres ent hemorrhage. A pelvic ultrasound should be considered for further evaluation. 2. Results of this exam have been verbally communicated with provider. RADIATION DOSE DELIVERED: 1,008.75mGy.cm Total DLP DATA REPOSITORY: All CT scans at this facility are submitted to the National Radiology Data Registry (NRDR) Dose Index Registry (DIR) with the [employer] (ACR). RADIATION OPTIMIZATION: All CT scans at this facility use at least one of these dose optimization te chniques: automated exposure control; mA and/or kV adjustment per patient size (includes targeted exa ms where dose is matched to clinical indication); or iterative reconstruction.
--- NOTE | 2020-11-16 12:45 | DI.CT_ITS ---
Exam(s) CT HEAD WO EXAM: CT HEAD WO CLINICAL HISTORY: Altered mental status. TECHNIQUE: Imaging Protocol: Axial computed tomography images with coronal and sagittal reformatted images were created and reviewed COMPARISON: CT CT HEAD WO from 09/11/2020 FINDINGS: Ventricles and Extra axial spaces: Normal in size and morphology for the patient's age. Hemorrhage: None. Cerebral parenchyma: Normal. Midline shift: None. Brainstem/Cerebellum: Normal. Calvarium: Normal. Visualized Paranasal sinuses/Mastoids: Clear. Soft Tissues: Unremarkable. IMPRESSION: 1. No acute intracranial process. 2. Results of this exam have been verbally communicated with provider. RADIATION DOSE DELIVERED: 742.08mGy.cm Total DLP DATA REPOSITORY: All CT scans at this facility are submitted to the National Radiology Data Registry (NRDR) Dose Index Registry (DIR) with the [employer] (ACR). RADIATION OPTIMIZATION: All CT scans at this facility use at least one of these dose optimization te chniques: automated exposure control; mA and/or kV adjustment per patient size (includes targeted exa ms where dose is matched to clinical indication); or iterative reconstruction.
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
[2020-11-16 13:20] LABS: Abs Immature Grans 0.02 10^3/uL (0.0-0.06); Absolute Basophil Count 0.03 10^3/uL (0.0-0.2); Absolute Lymphocyte Count 0.78 10^3/uL (1.2-3.4); Absolute Monocyte Count 0.67 10^3/uL (0.1-0.8); Absolute Neutrophil Count 3.95 10^3/uL (1.2-6.7); Basophils % 0.5; Eosinophils % 3.5; HCT 48.8 % (36.0-46.0); HGB 16.1 g/dL (11.2-15.7); Immature Grans % 0.4; Lymphocytes % 13.8; MCH 29.8 pg (27.0-33.0); MCV 90.2 fL (80-95); MPV 10.7 fL (8.0-11.0); Monocytes % 11.9; Neutrophils % 69.9; Nucleated RBC 0 %; Platelet Count 192 10^3/uL (130-400); RBC 5.41 10^6/uL (3.93-5.22); RDW 12.9 % (11.7-14.6); RDW-SD 42.5 fL; WBC 5.65 10^3/uL (4.4-10.8)
[2020-11-16] MEDS: Normal Saline 500 ML IV (13:34)
[2020-11-16 13:37] LABS: ALT 59 U/L (14-59); AST 40 U/L (15-37); Albumin 3.5 g/dL (3.4-5.0); Alkaline Phosphatase 73 U/L (46-116); Anion Gap 13.6 mmol/L (3-11); BUN 14 mg/dL (7-18); CO2 24.4 mmol/L (21.0-32.0); CREATININE 0.6 mg/dL (0.55-1.02); Chloride 101 mmol/L (98-107); Glucose 84 mg/dL (74-106); Lipase 105 U/L (73-393); Potassium 3.6 mmol/L (3.5-5.1); Sodium 139 mmol/L (136-145); Total Protein 7.8 g/dL (6.4-8.2); Troponin I < 0.05 ng/mL (<0.06)
[2020-11-16 13:38] LABS: Magnesium 1.7 mg/dL (1.8-2.4)
[2020-11-16 13:56] LABS: Bilirubin Small (Negative); Blood Trace-lysed (Negative); Clarity Clear (Clear); Glucose 500 mg/dL (Negative); Ketones >=160 mg/dL (Negative); Leukocyte Esterase Negative (Negative); Nitrite Positive (Negative); Specific Gravity 1.025 (1.005-1.025)
[2020-11-16 14:09] LABS: Bacteria Many HPF (Negative); C & S Indicated? Yes; Casts Negative LPF (Negative); Crystals Negative HPF (Negative); Epithelial Cells Few HPF (Negative); Mucus Trace (Negative); RBC 0-2 HPF (0-2)
[2020-11-16] MEDS: Omnipaque 350 MG/ML 100 ML BTL IV (14:46)
[2020-11-16] MEDS: cefTRIAXone 1 GM/50 ML BAG IVPB (14:52)
--- NOTE | 2020-11-16 15:15 | DI.US_ITS ---
Exam(s) US PELVIS EXAM: US PELVIS CLINICAL HISTORY: S/P Hysterectomy, Abdominal pain TECHNIQUE: Transabdominal imaging was performed using standard protocol. COMPARISON: No exams were available for comparison FINDINGS: KIDNEYS: Kidneys are symmetric in size. No evidence of renal calculi. No evidence of hydronephrosis. No renal mass or cyst identified. UTERUS: Status post hysterectomy. OVARIES: Not identified. CUL-DE-SAC: Free fluid: None. IMPRESSION: Status post hysterectomy. The ovaries were not visualized. No gross evidence of pelvic mass or flui d. DATA REPOSITORY:
--- NOTE | 2020-11-16 16:50 | DI.VRAD_ITS ---
PROCEDURE INFORMATION: Exam: US Nonobstetric Pelvis; Complete Exam date and time: 11/16/2020 3:16 PM Age: 50 years old Clinical indication: Other: Pain S/P hysterectomy; Prior surgery; Surgery date: 1-6 months; Surgery type: Per patient: S/P hysterectomy and oophorectomy 4 weeks ago TECHNIQUE: Imaging protocol: Transabdominal pelvic nonobstetric ultrasound. Complete exam. Real time ultrasound with image documentation. COMPARISON: CT ABDOMEN PELVIS W 11/16/2020 2:39 PM FINDINGS: Uterus/cervix: Hysterectomy. Right adnexa: Right ovary not seen. No abnormal adnexal mass.. Left adnexa: Left ovary not seen. No abnormal adnexal mass Intraperitoneal space: No intraperitoneal fluid. Urinary bladder: Normal. IMPRESSION: Hysterectomy. Pelvic ultrasound otherwise normal. Dictated and Authenticated by: Tiffany Manzanares MD. Ordering:CORTEZ Conway MD
[2020-11-16 16:54] VITALS: BP 127/76; PULSE 95; RESP 16; TEMP 36.2; O2SAT 97
[2020-11-16 17:38] LABS: Source Nasal/Nares
[2020-11-16 17:41] LABS: Troponin I < 0.05 ng/mL (<0.06)
[2020-11-16 17:57] LABS: *AMPHETAMINES SCREEN URINE Negative (Negative); *BARBITURATES SCREEN URINE Negative (Negative); *BENZODIAZEPINES SCREEN URINE Negative (Negative); Cannabinoids THC Negative (Negative); Cocaine Screen,Urine Negative (Negative); METHADONE URINE SCREEN Negative (Negative); OPIATES URINE SCREEN Negative (Negative)
[2020-11-16 17:58] LABS: Tricyclic Antidepressants Negative (Negative)
[2020-11-16 18:18] VITALS: BP 117/62; PULSE 87; RESP 14; TEMP 37.1; O2SAT 98
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
[2020-11-16 19:41] LABS: COVID-19 PCR Negative (Negative)
--- NOTE | 2020-11-16 19:53 | NUR.NOTE ---
Nursing Note: Pt requested all 4 rails to be up, nurse noticed.
[2020-11-16] MEDS: Sacubitril/Valsartan 24 mg/26 mg TAB 1 EACH PO (20:06)
[2020-11-16] MEDS: Carvedilol 3.125 MG TAB PO (20:06)
[2020-11-16] MEDS: Heparin 5,000 UNITS/ML VIAL 5000 UNITS SC (20:06)
[2020-11-16] MEDS: Magnesium Oxide 400 MG TAB PO (20:06)
[2020-11-17 02:08] VITALS: BP 123/77; PULSE 77; RESP 17; TEMP 36.6; O2SAT 97
[2020-11-17] MEDS: Heparin 5,000 UNITS/ML VIAL 5000 UNITS SC ×3 (03:49→20:04)
[2020-11-17 07:21] VITALS: BP 108/78; PULSE 83; RESP 28; TEMP 36.5; O2SAT 97
[2020-11-17 07:24] LABS: Abs Immature Grans 0.03 10^3/uL (0.0-0.06); Absolute Basophil Count 0.02 10^3/uL (0.0-0.2); Absolute Eosinophil Count 0.15 10^3/uL (0.0-0.7); Absolute Lymphocyte Count 0.57 10^3/uL (1.2-3.4); Absolute Monocyte Count 0.53 10^3/uL (0.1-0.8); Absolute Neutrophil Count 4.76 10^3/uL (1.2-6.7); Basophils % 0.3; Eosinophils % 2.5; HCT 44.9 % (36.0-46.0); HGB 14.9 g/dL (11.2-15.7); Immature Grans % 0.5; Lymphocytes % 9.4; MCH 29.6 pg (27.0-33.0); MCHC 33.2 % (32.0-36.0); MCV 89.3 fL (80-95); MPV 10.5 fL (8.0-11.0); Monocytes % 8.7; Neutrophils % 78.6; Nucleated RBC 0 %; Platelet Count 162 10^3/uL (130-400); RBC 5.03 10^6/uL (3.93-5.22); RDW 12.9 % (11.7-14.6); RDW-SD 42.2 fL; WBC 6.06 10^3/uL (4.4-10.8)
[2020-11-17 07:54] LABS: Anion Gap 13.5 mmol/L (3-11); BUN 13 mg/dL (7-18); CO2 24.5 mmol/L (21.0-32.0); CREATININE 0.6 mg/dL (0.55-1.02); Calcium 8.7 mg/dL (8.5-10.1); Chloride 104 mmol/L (98-107); Glucose 77 mg/dL (74-106); Potassium 3.2 mmol/L (3.5-5.1); Sodium 142 mmol/L (136-145)
[2020-11-17 07:55] LABS: Magnesium 1.9 mg/dL (1.8-2.4)
[2020-11-17] MEDS: Omeprazole 20 MG CAPCR PO (09:09)
[2020-11-17] MEDS: Magnesium Oxide 400 MG TAB PO ×2 (09:09→20:02)
[2020-11-17] MEDS: Spironolactone 25 MG TAB 12.5 MG PO (09:09)
[2020-11-17] MEDS: Divalproex 250 MG TABEC PO (09:09)
[2020-11-17] MEDS: DULoxetine 30 MG CAP 60 MG PO (09:09)
[2020-11-17] MEDS: Sacubitril/Valsartan 24 mg/26 mg TAB 1 EACH PO ×2 (09:10→20:01)
[2020-11-17] MEDS: Atorvastatin 40 MG TAB 80 MG PO (09:10)
[2020-11-17] MEDS: Carvedilol 3.125 MG TAB PO ×2 (09:10→20:02)
[2020-11-17] MEDS: Potassium Chloride 20 MEQ TABCR 40 MEQ PO (10:01)
--- NOTE | 2020-11-17 10:47 | PGE_ITS ---
Date of Service Date of service: 11/17/20 Time of Service: 10:48 Assessment and Plan Assessment and plan (1) UTI (urinary tract infection): Status: Acute Assessment and plan: LIkely the source of her confusion / altered mental status. Urine culture growing coag neg staph. antibiotic changed to vancomycin, pharmacy dosing, while awaiting sensitivities. Held gabapentin and melatonin (2) Tobacco abuse: Status: Acute Assessment and plan: She endorses quiting tobacco after recent hysterectomy. Declines nicotine replacement. (3) AIDA (generalized anxiety disorder): Status: Acute Assessment and plan: Cont Duloxetine and divalproex. (4) Drug abuse: Status: Acute Assessment and plan: H/O abuse. UDS negative. (5) History of alcoholism: Status: Acute Assessment and plan: no withdrawal symptoms here (6) Cardiomyopathy: Status: Chronic Assessment and plan: EF of 47% in 2007. No records in [facility] chart of a more recent echocardiogram. No SOA, edema, CP currently. Cont spironolactone. (7) Hyperlipidemia: Status: Chronic Assessment and plan: Cont atorvastatin. (8) Hypokalemia: Status: Acute Assessment and plan: replete and follow. magnesium level 1.9 (9) Discharge planning issues: Status: Acute Assessment and plan: will discharge home when medically stable. discussed with DR Fonseca. Subjective Subjective Patient reports: no new complaints, tolerating liquids well, tolerating a regular diet and afebrile Interval history since last seen: still unsteady requiring 2 stand by assist Exam Const General: cooperative and no acute distress Nutritional Appearance: overweight Orientation: awake, oriented to person and oriented to place [facility] Head: normocephalic and atraumatic Eyes General: appearance normal, both eyes and all related structures Sclera: sclerae normal Resp Effort & Inspection: normal respiratory effort Auscultation: clear to auscultation bilaterally Cardio Rate: regular rate Rhythm: regular rhythm Heart Sounds: S1 normal and S2 normal GI Inspection: non-distended Palpation: soft and tender (Mild;diffusely. No suprapubic tenderness.) Skin General skin exam: no rashes or lesions noted Neuro General: no focal motor deficits Cranial Nerves: facial strength normal and tongue midline Speech: speech normal Extrem General: no pedal edema and no calf tenderness Psych Appearance: grossly normal Affect: blunted Objective Last Vital Signs Temp 36.5 C 11/17/20 07:21 Pulse 83 11/17/20 07:21 Resp 28 H 11/17/20 07:21 BP 108/78 11/17/20 07:21 Pulse Ox 97 11/17/20 07:21 Laboratory Results - last 24 hr 11/16/20 11/16/20 11/16/20 13:00 13:00 13:00 WBC 5.65 RBC 5.41 H Hgb 16.1 H Hct 48.8 H MCV 90.2 MCH 29.8 MCHC 33.0 RDW 12.9 Plt Count 192 MPV 10.7 Immature Gran % 0.4 Neutrophils % 69.9 Lymphocytes % 13.8 Monocytes % 11.9 Eosinophils % 3.5 Basophils % 0.5 Nucleated RBC % 0 Absolute Neutrophils 3.95 Absolute Lymphocytes 0.78 L Absolute Monocytes 0.67 Absolute Eosinophils 0.20 Absolute Basophils 0.03 Sodium 139 Potassium 3.6 Chloride 101 Carbon Dioxide 24.4 Anion Gap 13.6 H BUN 14 Creatinine 0.6 Estimated GFR/1.73 m2 >= 60.00 Glucose 84 Calcium 9.0 Magnesium 1.7 L Total Bilirubin 1.0 AST 40 H ALT 59 Alkaline Phosphatase 73 Troponin I < 0.05 Total Protein 7.8 Albumin 3.5 Lipase 105 Urine Color Urine Clarity Urine pH Ur Specific [place] Urine Protein Urine Ketones Urine Blood Urine Nitrite Urine Bilirubin Urine Urobilinogen Ur Leukocyte Esterase Urine RBC Urine WBC Ur Epithelial Cells Urine Crystals Urine Bacteria Urine Casts Urine Mucus Ur Culture Indicated? Urine Glucose Urine Opiates Screen Urine Methadone Screen Ur Barbiturates Screen Ur Tricyclics Screen Ur Amphetamines Screen U Benzodiazepines Scrn Urine Cocaine Screen Ur THC Screen COVID-19 Source SARS-CoV-2 (PCR) 11/16/20 11/16/20 11/16/20 13:42 13:42 17:15 WBC RBC Hgb Hct MCV MCH MCHC RDW Plt Count MPV Immature Gran % Neutrophils % Lymphocytes % Monocytes % Eosinophils % Basophils % Nucleated RBC % Absolute Neutrophils Absolute Lymphocytes Absolute Monocytes Absolute Eosinophils Absolute Basophils Sodium Potassium Chloride Carbon Dioxide Anion Gap BUN Creatinine Estimated GFR/1.73 m2 Glucose Calcium Magnesium Total Bilirubin AST ALT Alkaline Phosphatase Troponin I < 0.05 Total Protein Albumin Lipase Urine Color Yellow Urine Clarity Clear Urine pH 6.0 Ur Specific [place] 1.025 Urine Protein Negative Urine Ketones >=160 H Urine Blood Trace-lysed H Urine Nitrite Positive H Urine Bilirubin Small H Urine Urobilinogen 1.0 H Ur Leukocyte Esterase Negative Urine RBC 0-2 Urine WBC 10-20 H Ur Epithelial Cells Few Urine Crystals Negative Urine Bacteria Many Urine Casts Negative Urine Mucus Trace Ur Culture Indicated? Yes Urine Glucose 500 H Urine Opiates Screen Negative Urine Methadone Screen Negative Ur Barbiturates Screen Negative Ur Tricyclics Screen Negative Ur Amphetamines Screen Negative U Benzodiazepines Scrn Negative Urine Cocaine Screen Negative Ur THC Screen Negative COVID-19 Source SARS-CoV-2 (PCR) 11/16/20 11/17/20 11/17/20 17:30 06:40 06:40 WBC RBC Hgb Hct MCV MCH MCHC RDW Plt Count MPV Immature Gran % Neutrophils % Lymphocytes % Monocytes % Eosinophils % Basophils % Nucleated RBC % Absolute Neutrophils Absolute Lymphocytes Absolute Monocytes Absolute Eosinophils Absolute Basophils Sodium 142 Potassium 3.2 L Chloride 104 Carbon Dioxide 24.5 Anion Gap 13.5 H BUN 13 Creatinine 0.6 Estimated GFR/1.73 m2 >= 60.00 Glucose 77 Calcium 8.7 Magnesium 1.9 Total Bilirubin AST ALT Alkaline Phosphatase Troponin I Total Protein Albumin Lipase Urine Color Urine Clarity Urine pH Ur Specific [place] Urine Protein Urine Ketones Urine Blood Urine Nitrite Urine Bilirubin Urine Urobilinogen Ur Leukocyte Esterase Urine RBC Urine WBC Ur Epithelial Cells Urine Crystals Urine Bacteria Urine Casts Urine Mucus Ur Culture Indicated? Urine Glucose Urine Opiates Screen Urine Methadone Screen Ur Barbiturates Screen Ur Tricyclics Screen Ur Amphetamines Screen U Benzodiazepines Scrn Urine Cocaine Screen Ur THC Screen COVID-19 Source Nasal/Nares SARS-CoV-2 (PCR) Negative 11/17/20 06:40 WBC 6.06 RBC 5.03 Hgb 14.9 Hct 44.9 MCV 89.3 MCH 29.6 MCHC 33.2 RDW 12.9 Plt Count 162 MPV 10.5 Immature Gran % 0.5 Neutrophils % 78.6 Lymphocytes % 9.4 Monocytes % 8.7 Eosinophils % 2.5 Basophils % 0.3 Nucleated RBC % 0 Absolute Neutrophils 4.76 Absolute Lymphocytes 0.57 L Absolute Monocytes 0.53 Absolute Eosinophils 0.15 Absolute Basophils 0.02 Sodium Potassium Chloride Carbon Dioxide Anion Gap BUN Creatinine Estimated GFR/1.73 m2 Glucose Calcium Magnesium Total Bilirubin AST ALT Alkaline Phosphatase Troponin I Total Protein Albumin Lipase Urine Color Urine Clarity Urine pH Ur Specific [place] Urine Protein Urine Ketones Urine Blood Urine Nitrite Urine Bilirubin Urine Urobilinogen Ur Leukocyte Esterase Urine RBC Urine WBC Ur Epithelial Cells Urine Crystals Urine Bacteria Urine Casts Urine Mucus Ur Culture Indicated? Urine Glucose Urine Opiates Screen Urine Methadone Screen Ur Barbiturates Screen Ur Tricyclics Screen Ur Amphetamines Screen U Benzodiazepines Scrn Urine Cocaine Screen Ur THC Screen COVID-19 Source SARS-CoV-2 (PCR)
[2020-11-17] MEDS: Normal Saline Flush 10 ML SYR IVP (12:22)
[2020-11-17] MEDS: Normal Saline 500 ML 100 ML IV (12:22)
[2020-11-17] MEDS: VANCOMYCIN/WATER (PEG) 1 GM/200 ML BAG IV ×2 (12:23→20:03)
--- NOTE | 2020-11-17 12:27 | PDOC.CMIN ---
- If Service Date Differs Date of service: 11/17/20 Time of Service: 12:27 Care Management Initial Assess REASON FOR HOSPITALIZATION:: UTI, Confusion, Weakness PAST MEDICAL HISTORY/PAST SURGICAL HISTORY:: Medical History (Updated 11/16/20 @ 19:36 by Caden Degroot MD). Alcohol abuse. Anxiety. Bipolar disorder. Cardiomyopathy (10/16/07). ECHO 10/2007=EF 47%. Chronic abdominal pain. longstanding. neg pelvic CT, 2012 nl pelvic u/s. Chronic interstitial cystitis. 2010 Rx @ [facility] with inj. Claustrophobia (06/06/15). Daytime somnolence. Depression. Gastroesophageal reflux disease. History of traumatic head injury. HTN (hypertension). Hyperlipidemia. IFG (impaired fasting glucose). Migraine. Neurodermatitis (03/03/15). Panic attacks. Pernicious anemia. PTSD. followed by Psych. Sleep disorder. Smoker. Tension type headache. Tobacco abuse. Urinary, incontinence, stress female (12/02/18). Vitamin B12 deficiency. Surgical History . Cholecystectomy (04/06/16). Cystoscopy. 06/09/15. H/O shoulder surgery. History of esophagogastroduodenoscopy. Status post vaginal hysterectomy (~2005) PREVIOUS FUNCTIONAL STATUS/SOCIAL/FAMILY SUPPORTS:: Janey lives in [place] with her sister Martha. She does not drive but her sister is able to provide her with transportation. Janey shares that she is disabled due to a learning disability. Janey is independent at baseline. CURRENT FUNCTIONAL STATUS:: Janey was laying in bed when CM met with her. She was pleasant and easily engaged in conversation. She shares that she is feeling tired, weak and her head feels foggy. CM encouraged Janey to try to get some rest. CM continues to support. ADVANCE DIRECTIVES:: On file, Health Care Agent is Marley Eden Has patient been provided with info about the portal/API?: Yes Did the patient sign up for the portal?: Yes CODE STATUS:: Full Code INSURANCE COVERAGE / FINANCIAL ISSUES:: Medicaid CURRENT HOME/COMMUNITY SERVICES/EQUIPMENT:: None PRIMARY CARE PHYSICIAN:: Sampson Orellana POTENTIAL DISCHARGE NEEDS:: CM continues to support PATIENT/FAMILY EDUCATION NEEDS:: Review discharge instructions and plan which includes follow up with outpatient providers. Ask me three. TRANSPORTATION:: via private vehicle with family PLAN:: Janey will likely be discharge home via private vehicle with sister when she is medically cleared by MD. Janey will need to follow up with WRIST LINER at [facility], [place] and PCP.
--- NOTE | 2020-11-17 14:27 | CHAPLAIN ---
Janey was resting in bed when I visited. She is quiet and reserved, but responded to questions, telling me that she lives in [place] with her sister, and she was hoping her sister would be in to visit today. She also said that she has a UTI, and didn't realize that a UTI could make her feel so sick. She is looking forward to her sister's visit.
[2020-11-17 15:41] VITALS: BP 104/70; PULSE 87; RESP 16; TEMP 36.5; O2SAT 98
[2020-11-17] MEDS: Acetaminophen 325 MG TAB 650 MG PO (16:12)
[2020-11-17] MEDS: Nystatin POWDER 15 GM JAR TP (20:03)
[2020-11-18 00:11] VITALS: BP 119/77; PULSE 73; RESP 17; TEMP 36.3; O2SAT 98
[2020-11-18] MEDS: VANCOMYCIN/WATER (PEG) 1 GM/200 ML BAG IV (03:59)
[2020-11-18] MEDS: Normal Saline Flush 10 ML SYR IVP ×2 (04:00→11:26)
[2020-11-18] MEDS: Heparin 5,000 UNITS/ML VIAL 5000 UNITS SC (04:01)
[2020-11-18 07:10] LABS: Abs Immature Grans 0.01 10^3/uL (0.0-0.06); Absolute Basophil Count 0.02 10^3/uL (0.0-0.2); Absolute Eosinophil Count 0.08 10^3/uL (0.0-0.7); Absolute Neutrophil Count 2.42 10^3/uL (1.2-6.7); Basophils % 0.6; Eosinophils % 2.3; HCT 45.8 % (36.0-46.0); HGB 15.2 g/dL (11.2-15.7); Immature Grans % 0.3; Lymphocytes % 14.6; MCH 29.8 pg (27.0-33.0); MCHC 33.2 % (32.0-36.0); MCV 89.8 fL (80-95); MPV 10.3 fL (8.0-11.0); Monocytes % 11.7; Neutrophils % 70.5; Nucleated RBC 0 %; Platelet Count 153 10^3/uL (130-400); RDW 12.9 % (11.7-14.6); RDW-SD 42.7 fL; WBC 3.43 10^3/uL (4.4-10.8)
[2020-11-18 07:26] VITALS: BP 117/70; PULSE 72; RESP 17; TEMP 37.1; O2SAT 97
[2020-11-18 07:28] LABS: Anion Gap 11.2 mmol/L (3-11); BUN 13 mg/dL (7-18); CO2 25.8 mmol/L (21.0-32.0); CREATININE 0.6 mg/dL (0.55-1.02); Calcium 8.7 mg/dL (8.5-10.1); Chloride 107 mmol/L (98-107); Glucose 87 mg/dL (74-106); Potassium 3.3 mmol/L (3.5-5.1); Sodium 144 mmol/L (136-145)
[2020-11-18] MEDS: Sacubitril/Valsartan 24 mg/26 mg TAB 1 EACH PO (08:20)
[2020-11-18] MEDS: Omeprazole 20 MG CAPCR PO (08:21)
[2020-11-18] MEDS: DULoxetine 30 MG CAP 60 MG PO (08:21)
[2020-11-18] MEDS: Divalproex 250 MG TABEC PO (08:21)
[2020-11-18] MEDS: Atorvastatin 40 MG TAB 80 MG PO (08:21)
[2020-11-18] MEDS: Carvedilol 3.125 MG TAB PO (08:21)
[2020-11-18] MEDS: Spironolactone 25 MG TAB 12.5 MG PO (08:22)
[2020-11-18] MEDS: Magnesium Oxide 400 MG TAB PO (08:23)
[2020-11-18] MEDS: Nystatin POWDER 15 GM JAR TP (08:24)
--- NOTE | 2020-11-18 09:57 | NUR.NOTE ---
Nursing Note: 0945: Assisted patient with bathing today. Pt refused to wash peritoneal area independently. Pt declined oral care. Declined to change briefs. ALTERATIONS EXPERT encourages pt to take part in ADLs and pt is resistant.
--- NOTE | 2020-11-18 11:15 | PT.INIE ---
Date of service: 11/18/20 Time of Service: 10:10 PT Notes Visit Reasons: UTI,Confusion,Weakness Inpatient Physical Therapy Evaluation Date: 11/18/20 Referring Doctor: Mary Cramer PT Orders: PT CONSULT: Nonurgent evaluation Precautions: Standard, fall risk Patient Profile/Admitting Diagnosis: 50-year-old female presenting to ED on 11/16/2020 with symptoms of confusion and dizziness, with medical work-up diagnosing UTI. She is status post hysterectomy approximately 3 weeks ago. PMHX: Medical History (Updated 11/16/20 @ 19:36 by Caden Degroot MD) Alcohol abuse Anxiety Bipolar disorder Cardiomyopathy (10/16/07) ECHO 10/2007=EF 47% Chronic abdominal pain longstanding. neg pelvic CT, 2012 nl pelvic u/s. Chronic interstitial cystitis 2010 Rx @ [facility] [place]. Claustrophobia (06/06/15) Daytime somnolence Depression Gastroesophageal reflux disease History of traumatic head injury HTN (hypertension) Hyperlipidemia IFG (impaired fasting glucose) Migraine Neurodermatitis (03/03/15) Panic attacks Pernicious anemia PTSD followed by Psych Sleep disorder Smoker Tension type headache Tobacco abuse Urinary, incontinence, stress female (12/02/18) Vitamin B12 deficiency Surgical History Cholecystectomy (04/06/16) Cystoscopy 06/09/15 H/O shoulder surgery History of esophagogastroduodenoscopy Status post vaginal hysterectomy (~2005) Social History/Home Situation: Patient reports she is currently living with her sister, in a two-story home. She has been able to independently navigate the stairs with use of rail. Feels her gait is unsteady, and she is generally furniture traveling about the home. She does not use an assistive device at baseline. She has been using one since in the hospital. She does not report any falls. She does not work, medically disabled. Current Functional Limitations: Requires supervision with ambulation and transfers, unpredictable stability. Equipment Owned/DME: None denies any pain. Subjective: She states she is very anxious, the hospital is very busy and is distracting her. Feels that she is weak and needs to use the walker. Objective: General Observation: Lying in bed, IV lines bilateral arms, currently not attached to IV fluid. Mild bruising on her left arm related to IV insertion. Mental Status: Flat affect, slow to answer questions and follow commands. Alert to person, aware she is in the hospital. She is able to tell me clearly that she was with her sister and is originally from [place]. Pain: 0/10 Vital Signs: 117/70 BP, 72 HR, O2 saturation 97 on room air ROM: Right Upper Extremity: Grossly within functional limits, arms limited to about 130 degrees of flexion in scapular plane Left Upper Extremity: Grossly within functional limits, arms limited to about 130 degrees of flexion in scapular plane Right Lower Extremity: Grossly within functional limits Left Lower Extremity: Grossly within functional limits Strength: Right Upper Extremity: Grossly 3+/5 throughout all planes of the shoulder, elbow and wrist 4/5 Left Upper Extremity: Grossly 3+/5 throughout all planes of the shoulder, elbow and wrist 4/5 Right Lower Extremity: Grossly 4/5 throughout Left Lower Extremity: Grossly 4/5 throughout Sensation: WNL Bed Mobility/Transfers: Bed mobility is independent, requires verbal encouragement to complete this without assistance, but she can do it Sit to stand CG x1, to RW Stand to sit supervision Gait: Weightbearing, able to take 5 steps x2 with CG no assistive device, ambulates 250 feet with RW, close supervision. Patient requires verbal encouragement throughout to improve increase speed of gait, which she is able to do. Demonstrates moments of dozing off while walking, not controlling the walker gently bumping into the wall, which is unclear if this is intentional or not. Balance: Static Sitting: Good Dynamic Sitting: Good Static Standing: Fair Dynamic Standing: Fair or Special Tests: Mobility Limitations Standardized Measure [facility]-PAC 6 clicks Basic Mobility Inpatient Short Form: 28% disability Stage 4 balance test Stage 1: Pass Stage 2: Pass Stage 3: Fail Stage 4: Fail Informed Consent/Education: Patient instructed in purpose of PT consult and plan of care. Assessment: Patient is a 50 year old female referred to physical therapy services with the diagnosis of UTI. Patient presents with clinical signs and symptoms consistent with lower extremity weakness, balance impairment, dynamic unsteadiness, potentially related to her diagnosis of UTI as well as unclear cognitive capabilities, and potentially sedentary lifestyle. Impairments contribute to need for supervision to assistance with functional transfers and ambulation, however with PT care for strengthening and balance training, she will be appropriate for return home with her sister at time of discharge. She has fair rehabilitation potential and she requires skilled PT intervention to attend to the above impairments and functional imitations. Patient is assessed as a moderate complexity History: See comorbidities Examination: See above impairments and functional limitations Presentation: Evolving Decision Making: Moderate Goals: Goals X1 week 1. Supine-Sit independent 2. Sit-Supine independent 3. Sit-Stand independent 4. Stand-Sit independent 5. Bed-Chair supervision without device 6. Chair-Bed supervision without assistive device 7. Gait 50 feet, RW, supervision 8. Stairs 4, with supervision 9. Independent with home exercise program 10. Balance fair dynamic balance Plan of Care/Treatment Plan: 1-2x/day, 7 days/week x 1 week. Plan of care has been reviewed with the DIRECTOR IMMUNOLOGY providing the service under Physical Therapy direction. Initiate Physical Therapy intervention for strengthening, bed mobility, transfers, gait, stairs, balance training, use of assistive device. DISCHARGE RECOMMENDATIONS: Home with sister, recommend home health PT service if she continues to demonstrate degree of unsteadiness and weakness limiting her functional capabilities TREATMENT CODE/TIME: 20 minutes, 26955. 10 to 10:20 AM Thank you for this referral.
[2020-11-18] MEDS: Polyethylene Glycol 3350 17 GM PACKET PO (11:21)
[2020-11-18] MEDS: Potassium Chloride 20 MEQ TABCR 40 MEQ PO (11:25)
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
[2020-11-18] MEDS: POTASSIUM CHLORIDE 20 MEQ/100 ML BAG 50 MEQ IVPB (11:28)
[2020-11-18 11:32] LABS: Vancomycin, Trough 15.2 ug/mL (10.0-20.0)
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
[2020-11-18 13:01] VITALS: BP 122/86; PULSE 75; RESP 18; TEMP 36.7; O2SAT 98
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
--- NOTE | 2020-11-18 15:21 | PT.INTREAT ---
Date of service: 11/18/20 Time of Service: 13:40 PT Notes Visit Reasons: UTI,Confusion,Weakness Inpatient Physical Therapy Treatment Note [facility] Date: 11/18/2020 PRECAUTIONS: Activity as tolerated SUBJECTIVE: Janey states that she feels weak compared to her baseline. She is agreeable to participating in PT. Her sister, with whom Janey lives, is present during treatment, stating that she has plenty of DME at home, including FWWs, commodes, canes, and a ramp to enter. She also reports that Janey will need to climb 19 stairs, with B rails, to get to her bedroom. She states that Janey needs to be able to negotiate stairs and transfer without physical assist. OBJECTIVE: PAIN: No c/o pain BED MOBILITY/TRANSFERS Rolling L/R: I Supine-sit: I with HOB flat Sit-supine: I with HOB flat Sit-stand: S Stand-sit: S GAIT Assistive Device: FWW Weight bearing: Full Assist: S Distance: 150' Deviation: Slow pace, cues for increased pacing, refused further gait training STAIRS: Up/down 3x4 and 2x6 using B rails and a step-over pattern, independently. She refuses further stair training. Patient requires extra time to complete activity due to slow pacing. ASSESSMENT: Patient tolerated session well, although with c/o weakness. She demonstrates physical ability to perform all bed mobility and transfers without assist, although does require cueing for technique. PLAN: Patient to discharge to home later today, per provider. Recommend follow up with HH PT versus OP PT. TREATMENT CODE/TIME: 25 minutes; [id number] x2 (13:40)
[2020-11-18 16:25] VITALS: BP 138/85; PULSE 74; RESP 17; TEMP 36.5; O2SAT 96
--- NOTE | 2020-11-18 16:38 | PDOC.HHF2F_ITS ---
Home Health Certification Home Health Certification: 1. Encounter Date and Reason I certify that Janey Yousif was seen by Janki Tobar on 11/18/20 and that I had a [id number] encounter with this patient that meets the physician face to face encounter requirements. 2. Clinical Findings Supporting Skilled Need and Homebound Status I certify that home health services are medically necessary, include either intermittent nursing home and/or physical/speech therapy, and that this patient is homebound in that absences from the home require considerable and taxing effort and are infrequent or of short duration, or are attributable to the need to receive medical care. [X] (a) Attached documentation from encounter provides clinical findings supporting skilled need and homebound status (including what assistance patient requires to leave the home). The encounter with the patient was in whole, or in part, for the following medical condition, which is the primary reason for home health care: UTI,Confusion,Weakness Intermediate/FRETTED STRING INSTRUMENT REPAIRER: To help patient with self care, such as self cath and medication administration Homebound: Unable to leave home without assistance 3. Certification and Authentication I certify that I composed the above information based on my clinical judgement relating to this patient's medical condition and, if applicable, clinical findings communicated to me by the NPP or inpatient physician who performed the Home Health Referral. All further orders will be obtained through Dany Orellana Community Based Physician - PCP)
--- NOTE | 2020-11-18 16:58 | CMDISCH_ITS ---
- If Service Date Differs Date of service: 11/18/20 Time of Service: 16:58 LACE Index Scoring Tool - Questions: Length of Stay (in days): 2 Acuity (Admit via E.D.?): Yes E.D. Visits: 2 - Answers: Total Score: 7 Risk of Readmission: Low Risk Care Management Discharge Reason for Hospitalization: UTI, Confusion, Weakness Discharge Plan: Discharge home with new HH SN/PT/Speech via private vehicle with sister. Follow up with community providers which includes PCP, NEJOANNES and urol sagar. Patient/Family Education Needs: Review discharge instructions, limitations, medications and plan to follow up with community providers. ask me three Services Needed at Discharge: Home Health Care Services, Occupational Therapy, Physical Therapy, Speech Therapy
[2020-11-18] MEDS: Fluconazole 100 MG TAB 400 MG PO (16:59)
--- NOTE | 2020-11-18 18:40 | INDS_ITS ---
Date of service: 11/18/20 PT Notes Visit Reasons: UTI,Confusion,Weakness Physical Therapy Inpatient Discharge Summary Date: 11/18/20 Dates of Service: 11/18/2020 This is a clinical summary of care provided for the duration of dates listed above. No charge was made in the completion of this documentation. Referring Doctor: Mary Cramer PT Orders: PT CONSULT: Nonurgent evaluation Precautions: Standard, fall risk Patient Profile/Admitting Diagnosis: 50-year-old female presenting to ED on 11/16/2020 with symptoms of confusion and dizziness, with medical work-up diagnosing UTI. She is status post hysterectomy approximately 3 weeks ago. PMHX: Medical History (Updated 11/16/20 @ 19:36 by Caden Degroot MD) Alcohol abuse Anxiety Bipolar disorder Cardiomyopathy (10/16/07) ECHO 10/2007=EF 47% Chronic abdominal pain longstanding. neg pelvic CT, 2012 nl pelvic u/s. Chronic interstitial cystitis 2010 Rx @ [facility] [place] with inj. Claustrophobia (06/06/15) Daytime somnolence Depression Gastroesophageal reflux disease History of traumatic head injury HTN (hypertension) Hyperlipidemia IFG (impaired fasting glucose) Migraine Neurodermatitis (03/03/15) Panic attacks Pernicious anemia PTSD followed by Psych Sleep disorder Smoker Tension type headache Tobacco abuse Urinary, incontinence, stress female (12/02/18) Vitamin B12 deficiency Surgical History Cholecystectomy (04/06/16) Cystoscopy 06/09/15 H/O shoulder surgery History of esophagogastroduodenoscopy Status post vaginal hysterectomy (~2005) Social History/Home Situation: Patient reports she is currently living with her sister, in a two-story home. She has been able to independently navigate the stairs with use of rail. Feels her gait is unsteady, and she is generally furniture traveling about the home. She does not use an assistive device at baseline. She has been using one since in the hospital. She does not report any falls. She does not work, medically disabled. Current Functional Limitations: Requires supervision with ambulation and transfers, unpredictable stability. Equipment Owned/DME: None denies any pain. Subjective: NT. See most recent LEAD JAV[employer]CRIPT [employer]INEER notes. Objective: General Observation: NT. See most recent LEAD JAVASCRIPT ENGINEER notes. Mental Status: NT. See most recent LEAD JAVASCRIPT ENGINEER notes. Pain: NT. See most recent LEAD JAVASCRIPT ENGINEER notes. Vital Signs: NT. See most recent LEAD JAVASCRIPT ENGINEER notes. ROM: Right Upper Extremity: Grossly within functional limits, arms limited to about 130 degrees of flexion in scapular plane Left Upper Extremity: Grossly within functional limits, arms limited to about 130 degrees of flexion in scapular plane Right Lower Extremity: Grossly within functional limits Left Lower Extremity: Grossly within functional limits Strength: Right Upper Extremity: Grossly 3+/5 throughout all planes of the shoulder, elbow and wrist 4/5 Left Upper Extremity: Grossly 3+/5 throughout all planes of the shoulder, elbow and wrist 4/5 Right Lower Extremity: Grossly 4/5 throughout Left Lower Extremity: Grossly 4/5 throughout Sensation: WNL Bed Mobility/Transfers: Bed mobility is independent, requires verbal encouragement to complete this without assistance, but she can do it Sit to stand supervision Stand to sit supervision Gait: Up to 150 feet of level of his ambulation walker with forward supervision assist only. Verbal cues provided for safe gait pattern. Balance: Static Sitting: Good Dynamic Sitting: Good Static Standing: Fair Dynamic Standing: Fair Assessment: Patient is a 50 year old female referred to physical therapy services with the diagnosis of UTI. Patient presents with clinical signs and symptoms consistent with lower extremity weakness, balance impairment, dynamic unsteadiness, potentially related to her diagnosis of UTI as well as unclear cognitive capabilities, and potentially sedentary lifestyle. Goals: Goals X1 week 1. Supine-Sit independent MET 2. Sit-Supine independent MET 3. Sit-Stand independent NOT MET 4. Stand-Sit independent NOT MET 5. Bed-Chair supervision without device NOT MET 6. Chair-Bed supervision without assistive device NOT MET 7. Gait 50 feet, RW, supervision MET 8. Stairs 4, with supervision NOT MET 9. Independent with home exercise program NOT MET 10. Balance fair dynamic balance NOT MET DISCHARGE RECOMMENDATIONS: Home with sister, recommend home health PT service if she continues to demonstrate degree of unsteadiness and weakness limiting her functional capabilities TREATMENT CODE/TIME: [place] Thank you for the opportunity to participate in the care of this patient. Sydnie Morillo PT, DPT, CLT [facility] [place], [place]
== END 2020-11-18 18:09 | disposition home health service (06) | DRG 690 ==
LOC: ER 17:31 → MS 18:17
PROVIDERS: Internal Medicine; Nurse Practitioner Acute Care; Registered Nurse Emergency; Admitting Provider Family Medicine; Emergency Provider Physician Assistant; PCP Family Medicine; Visit Provider Family Medicine
DX: N30.00 Acute cystitis without hematuria (principal); I42.9 Cardiomyopathy, unspecified; Z20.822 Contact with and (suspected) exposure to COVID-19; F17.210 Nicotine dependence, cigarettes, uncomplicated; E78.5 Hyperlipidemia, unspecified; F10.10 Alcohol abuse, uncomplicated; R73.01 Impaired fasting glucose; F43.10 Post-traumatic stress disorder, unspecified; K21.9 Gastro-esophageal reflux disease without esophagitis; N39.3 Stress incontinence (female) (male); G44.209 Tension-type headache, unspecified, not intractable; F31.9 Bipolar disorder, unspecified; I10 Essential (primary) hypertension; R41.0 Disorientation, unspecified; D51.0 Vitamin B12 deficiency anemia due to intrinsic factor deficiency; F19.11 Other psychoactive substance abuse, in remission; R33.8 Other retention of urine; B95.7 Other staphylococcus as the cause of diseases classified elsewhere; E87.6 Hypokalemia
CPT/HCPCS: 36410; 36415; 36416; 51701; 80048; 80053; 80307; 82962; 83690; 87040; 87077; 87635; 93005; 96361; 96365; 97162; 97530; 99285; 70450; 74177; 76856; 80202; 81003; 81015; 83735; 84484; 85025; 87086; 87186; 93010; 99222; 99233; 99239; J0696; J1644; J3480; J3490

== ENCOUNTER 2022-09-13 11:16 | Emergency (ER) | payer MEDICAID, SELFPAY ==
[2022-09-13 11:25] VITALS: BP 113/73; PULSE 75; RESP 18; TEMP 36.5; O2SAT 99
[2022-09-13] MEDS: Water,Injection,Sterile 10 ML VIAL (14:37)
[2022-09-13] MEDS: ceFAZolin 1,000 MG VIAL 1000 MG IM (14:37)
[2022-09-13 14:38] VITALS: PULSE 88; O2SAT 98
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
== END 2022-09-13 14:38 | disposition home or self-care (01) ==
PROVIDERS: Emergency Provider Physician Assistant
DX: L03.114 Cellulitis of left upper limb (principal); S60.522A Blister (nonthermal) of left hand, initial encounter; X58.XXXA Exposure to other specified factors, initial encounter
CPT/HCPCS: 36416; 82962; 87077; 96372; 99284; 87070; 87186; 87205; J0690

== ENCOUNTER 2023-07-03 10:00 | Outpatient (CLI) | payer MEDICAID, SELFPAY ==
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
== END 2023-07-03 10:01 | disposition home or self-care (01) ==
LOC: CCC 11:33
PROVIDERS: PCP Family Medicine; Visit Provider Nurse Practitioner Family
DX: B20 Human immunodeficiency virus [HIV] disease (principal)
CPT/HCPCS: 99205

== ENCOUNTER 2023-07-03 18:07 | Outpatient (REF) | payer MEDICAID, SELFPAY ==
[2023-07-03 18:15] LABS: Abs Immature Grans 0.01 10^3/uL (0.0-0.06); Absolute Basophil Count 0.02 10^3/uL (0.0-0.2); Absolute Eosinophil Count 0.12 10^3/uL (0.0-0.7); Absolute Lymphocyte Count 0.42 10^3/uL (1.2-3.4); Absolute Monocyte Count 0.28 10^3/uL (0.1-0.8); Absolute Neutrophil Count 2.48 10^3/uL (1.2-6.7); Basophils % 0.6; Eosinophils % 3.6; HGB 15.2 g/dL (11.2-15.7); Immature Grans % 0.3; Lymphocytes % 12.6; MCH 28.3 pg (27.0-33.0); MCHC 31.7 % (32.0-36.0); MCV 89 fL (80-95); MPV 10.8 fL (8.0-11.0); Monocytes % 8.4; Neutrophils % 74.5; Platelet Count 177 10^3/uL (130-400); RBC 5.38 10^6/uL (3.93-5.22); RDW 13.6 % (11.7-14.6); RDW-SD 44.5 fL; WBC 3.33 10^3/uL (4.4-10.8)
[2023-07-03 18:32] LABS: ALT 25 U/L (14-59); AST 18 U/L (15-37); Albumin 3.3 g/dL (3.4-5.0); Alkaline Phosphatase 74 U/L (46-116); Anion Gap 11.5 mmol/L (3-11); BUN 10 mg/dL (7-18); Bilirubin, Total 0.3 mg/dL (0.2-1.0); CO2 22.5 mmol/L (21.0-32.0); CREATININE 0.9 mg/dL (0.55-1.02); Calcium 8.9 mg/dL (8.5-10.1); Calculated LDL 111 mg/dL (<100); Chloride 107 mmol/L (98-107); Cholesterol 176 mg/dL (<200); Estimated GFR 76.92 (mL/min/1.73m2); Glucose 127 mg/dL (74-106); HDL Cholesterol 35 mg/dL (40-60); Potassium 4.1 mmol/L (3.5-5.1); Sodium 141 mmol/L (136-145); Triglyceride 154 mg/dL (<150)
[2023-07-03 18:35] LABS: Hemoglobin A1C 5.9 % (<5.7)
[2023-07-03 18:45] LABS: Total Protein 7.6 g/dL (6.4-8.2)
[2023-07-05 12:53] LABS: Syphilis Serology (RPR) Negative (Negative)
[2023-07-08 11:55] LABS: HIV 1 RNA Qualitative Detected copies/mL (Undetected); HIV 1 RNA Quantitative 7000 copies/mL (Undetected)
[2023-07-19 13:49] LABS: HIV Genotypic Drug Resistance INTERP; HIV-1 group M subtype B
[2023-07-19 13:50] LABS: Doravirine SUSC
[2023-07-19 13:51] LABS: Atazanavir + Ritonavir SUSC; Darunavir + Ritonavir SUSC; Fosamprenavir + Ritonavir SUSC; Indinavir + Ritonavir SUSC; Lopinavir + Ritonavir SUSC; Saquinavir + Ritonavir SUSC; Tipranavir + Ritonavir SUSC
[2023-07-19 13:52] LABS: Bictegravir SUSC; Cabotegravir SUSC; Dolutegravir SUSC; Elvitegravir SUSC; Raltegravir SUSC
[2023-07-19 13:58] LABS: HIV RNA copies/mL <30 days = See Comments
== END 2023-07-03 18:08 | disposition home or self-care (01) ==
LOC: LBN 18:07
PROVIDERS: PCP Family Medicine; Referring Provider Internal Medicine Infectious Disease; Visit Provider Nurse Practitioner Family
DX: B20 Human immunodeficiency virus [HIV] disease (principal); Z82.49 Family history of ischemic heart disease and other diseases of the circulatory system; R73.09 Other abnormal glucose
CPT/HCPCS: 80053; 80061; 87536; 83036; 85025; 86359; 86360; 86592; 87901

== ENCOUNTER 2024-01-21 15:08 | Outpatient (CLI) | payer MEDICAID, SELFPAY | END 2024-01-21 15:09 | disposition home or self-care (01) | LOC: CCC 03-05 15:08 | PROVIDERS: PCP Family Medicine; Visit Provider Nurse Practitioner Family | DX: B20 Human immunodeficiency virus [HIV] disease (principal); F32.A Depression, unspecified | CPT/HCPCS: 99214 ==

== ENCOUNTER 2024-05-19 12:00 | Outpatient (CLI) | payer MEDICAID, SELFPAY ==
[2024-05-19 08:59] LABS: Abs Immature Grans 0.02 10^3/uL (0.0-0.06); Absolute Basophil Count 0.02 10^3/uL (0.0-0.2); Absolute Eosinophil Count 0.14 10^3/uL (0.0-0.7); Absolute Lymphocyte Count 0.58 10^3/uL (1.2-3.4); Basophils % 0.5 %; Eosinophils % 3.6 %; HCT 51.1 % (36.0-46.0); HGB 16.1 g/dL (11.2-15.7); Immature Grans % 0.5 %; MCH 27.9 pg (27.0-33.0); MCHC 31.5 % (32.0-36.0); MCV 88 fL (80-95); MPV 9.4 fL (8.0-11.0); Monocytes % 7.8 %; Neutrophils % 72.6 %; Platelet Count 185 10^3/uL (130-400); RBC 5.78 10^6/uL (3.93-5.22); RDW 14.8 % (11.7-14.6); RDW-SD 47.8 fL; WBC 3.86 10^3/uL (4.4-10.8)
[2024-05-19 09:16] LABS: Hemoglobin A1C 5.9 % (<5.7)
[2024-05-19 09:52] LABS: ALT 15 U/L (14-59); AST 13 U/L (15-37); Albumin 3.3 g/dL (3.4-5.0); Alkaline Phosphatase 83 U/L (46-116); Anion Gap 4.9 mmol/L (3-11); BUN 10 mg/dL (7-18); Bilirubin, Total 0.48 mg/dL (0.2-1.0); CO2 32.1 mmol/L (21.0-32.0); CREATININE 0.8 mg/dL (0.55-1.02); Calcium 9.4 mg/dL (8.5-10.1); Chloride 107 mmol/L (98-107); Estimated GFR 88.05 (mL/min/1.73m2); Glucose 92 mg/dL (74-106); Potassium 3.9 mmol/L (3.5-5.1); Sodium 144 mmol/L (136-145); Total Protein 7.9 g/dL (6.4-8.2)
[2024-05-20 17:06] LABS: 4/8 Ratio 0.66 (>=0.90); Absolute CD3 447 Cells/uL (840-2669); Absolute CD8 255 Cells/uL (154-1097); CD3 71 % (56-84); CD4 27 % (31-64); CD8 41 % (9-39)
[2024-05-22 13:25] LABS: HIV 1 RNA Qualitative Undetected Copys/mL (Undetected)
== END 2024-05-19 12:01 | disposition home or self-care (01) ==
LOC: LBO 12:02
PROVIDERS: PCP Family Medicine; Visit Provider Nurse Practitioner Family
DX: B20 Human immunodeficiency virus [HIV] disease (principal); Z79.899 Other long term (current) drug therapy
CPT/HCPCS: 36415; 80053; 87536; 83036; 85025; 86359; 86360

== ENCOUNTER 2024-11-05 00:57 | Outpatient (CLI) | payer MEDICAID, SELFPAY ==
[2024-11-05 12:17] LABS: Abs Immature Grans 0.04 10^3/uL (0.0-0.06); HCT 49.3 % (36.0-46.0); HGB 16.3 g/dL (11.2-15.7); Immature Grans % 0.9 %; MCH 30.1 pg (27.0-33.0); MCHC 33.1 % (32.0-36.0); MCV 91 fL (80-95); MPV 9.9 fL (8.0-11.0); Platelet Count 197 10^3/uL (130-400); RBC 5.42 10^6/uL (3.93-5.22); RDW 13.3 % (11.7-14.6); RDW-SD 44.5 fL; WBC 4.44 10^3/uL (4.4-10.8)
[2024-11-05 13:45] LABS: ALT 16 U/L (14-59); AST 13 U/L (15-37); Albumin 3.2 g/dL (3.4-5.0); Alkaline Phosphatase 82 U/L (46-116); Anion Gap 8.3 mmol/L (3-11); BUN 4 mg/dL (7-18); Bilirubin, Total 0.4 mg/dL (0.2-1.0); CO2 30.7 mmol/L (21.0-32.0); Calcium 9.2 mg/dL (8.5-10.1); Chloride 104 mmol/L (98-107); Estimated GFR 88.05 (mL/min/1.73m2); Glucose 80 mg/dL (74-106); Potassium 4.3 mmol/L (3.5-5.1); Sodium 143 mmol/L (136-145); Total Protein 7.0 g/dL (6.4-8.2)
[2024-11-06 13:34] LABS: CD3 78 % (56-84); CD4 32 % (31-64); CD8 44 % (9-39)
[2024-11-09 12:09] LABS: HIV 1 RNA Quantitative <20 Copys/mL (Undetected)
== END 2024-11-05 00:58 | disposition home or self-care (01) ==
LOC: LBO 00:57
PROVIDERS: PCP Family Medicine; Visit Provider Nurse Practitioner Family
DX: B20 Human immunodeficiency virus [HIV] disease (principal); Z79.899 Other long term (current) drug therapy
CPT/HCPCS: 36415; 80053; 87536; 85025; 86359; 86360

== ENCOUNTER 2024-11-17 14:37 | Emergency (ER) | payer MEDICAID, SELFPAY ==
[2024-11-17 14:39] VITALS: BP 135/88; PULSE 81; RESP 16; TEMP 36.9; O2SAT 96
--- NOTE | 2024-11-17 14:45 | DI.RAD_ITS ---
Exam(s) XR TIB/FIB RT EXAM: XR TIB/FIB RT CLINICAL HISTORY: pain, hx of surgically repaired tibia fracture. TECHNIQUE: 2D digital imaging was performed. Two views. COMPARISON: CR XR ANKLE RT COMPLETE from 11/15/2018 FINDINGS: BONES: No acute fracture is present. There are old healed fractures of the proximal fibula and distal tibia. The distal tibial fracture has healed with mild deformity and some spurring at the proximal posterior portion. No bony destructive lesion is seen. Visualized portion of knee and ankle joints are unremarkable. SOFT TISSUE: Normal. IMPRESSION: Old proximal fibular and distal tibial fractures. No acute abnormality. DATA REPOSITORY: RADIATION DOSE DELIVERED:
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
[2024-11-17 16:37] VITALS: BP 135/88; PULSE 81; RESP 16; TEMP 36.9; O2SAT 96
== END 2024-11-17 16:39 | disposition home or self-care (01) ==
PROVIDERS: Emergency Provider Emergency Medicine; PCP Family Medicine
DX: M79.604 Pain in right leg (principal)
CPT/HCPCS: 99283 ×2; 73590